=== PATIENT | female | born 1975 | race Caucasian/White ===

== ENCOUNTER 2016-04-09 17:35 | Emergency (ER) | payer OTHER ==
[~2016-04-09] VITALS: Ht 149.9 cm; Wt 95.0 kg
[~2016-04-09 17:35] MED LIST: COLA100C3 PO; CYCL5TAB PO; DIAZ5TAB PO; FENT12DI T-DERMAL; GABA600T PO; LEVO25TA4 PO; MACR100C2 PO; MIRA33504 PO; PERC10TA27 PO; SIMV5TAB3 PO; VENL150T PO
[2016-04-09 17:38] VITALS: BP 136/92; PULSE 87; RESP 14; TEMP 97.6; O2SAT 96
[2016-04-09 17:51] VITALS: TEMP 98.3
[2016-04-09] MEDS ORDERED: HYDR-3133 PO (17:51)
[2016-04-09 18:29] VITALS: O2SAT 97
[2016-04-09] MEDS ORDERED: SODIUM CHLORIDE 0.9% FLUSH 5 ML FLUSH IVF PRN (18:30)
[2016-04-09] MEDS ORDERED: KETOROLAC TROMETHAMINE 30 MG/ML (IVP) VIAL IV PUSH ONE (18:30)
[2016-04-09] MEDS ORDERED: ONDANSETRON HCL 4 MG/2 ML VIAL IVP ONE (18:30)
--- NOTE | 2016-04-09 18:33 | PD ---
HPI Chief Complaint: Abdominal Pain Time Seen by Provider: 18:21 Travel History International Travel<30 days: No Contact w/Intl Traveler<30days: No Traveled to known affect area: No History of Present Illness HPI 40-year-old female with history of ovarian cysts and kidney stones presents to the emergency room for evaluation of acute on chronic abdominal pain and nausea without vomiting since last night. Pain is localized to the periumbilical region with radiation to the right lower quadrant and right flank. Patient states she has a high pain tolerance but this pain is worse than normal. Patient has history of chronic abdominal pain. Abdominal surgical history includes exploratory laparotomy, cholecystectomy, mesh implant, and inguinal hernia repair. Patient reports chronic groin pain due to inguinal hernia. She is on a fentanyl patch for her chronic pain. She also takes ibuprofen for pain. She denies any constipation. She last had a bowel movement last night and it was normal. Denies any rectal bleeding, hematemesis, dysuria, frequency , hematuria, and urgency. Denies possibility of as she has had uterine ablation and her tubes tied. Patient has an appointment with a blast furnace tender at [facility] in 2 weeks. PFSH Past Medical History Hx Anticoagulant Therapy: No Asthma: Yes ( A CHILD) Anxiety: Yes Depression: Yes Cancer: No Cardiovascular Problems: Yes (CHOLESTEROL) Chemotherapy: No Cerebrovascular Accident: No Diabetes: No Diminished Hearing: No Endocrine: Yes Gastrointestinal Disorders: No Genitourinary: Yes (CHRONIC GROIN PAIN ) Hepatitis: No Hiatal Hernia: No Hypertension: No Immune Disorder: No Inguinal Hernia: Yes Kidney Stones: Yes Musculoskeletal: No Neurologic: No Psychiatric: Yes (anxiety) Reproductive: No Respiratory: No Immunizations Current: Yes Thyroid Disease: Yes (HYPO) ?: Not : 3 Para: 3 Ovarian Cysts: Yes (BILAT) Tubal Ligation: Yes Past Surgical History Abdominal Surgery: Yes (BIOPSY ABD RECTUS MUSCLE/BENIGN) AICD: No Section: Yes (X 1) Cholecystectomy: Yes (3 weeks ago) Gynecologic Surgery: Yes (ABLATION) Joint Replacement: No Pacemaker: No Tonsillectomy: Yes Other Surgery: Yes (HERNIA REPAIR X2; MASS REMOVED FROM NECK ) Social History Alcohol Use: No Tobacco Use: No Substance Use: No Allergies-Medications (Allergen,Severity, Reaction): Coded Allergies: No Known Allergies (Verified , 01/28/16) Reported Meds & Prescriptions Reported Meds & Active Scripts Active Diflucan (Fluconazole) 150 Mg Tab 150 Mg PO ONCE Macrobid (Nitrofurantoin Monoh/Nitrofur Macro) 100 Mg Cap 100 Mg PO BID 7 Days Colace (Docusate Sodium) 100 Mg Cap 100 Mg PO BID Miralax Powder (Polyethylene Glycol 3350 Powder) 17 Gm Powd 17 Gm PO DAILY Mix and dissolve one measuring cap-ful (17 grams) in water or juice. Reported Hydroxyzine HCl 25 Mg Tab 25 Mg PO QID Fentanyl Patch 72 HR (Fentanyl) 12 Mcg/Hr Patch 1 Patch T-DERMAL Q72H Remove old patch when new one placed. Venlafaxine ER 24 HR (Venlafaxine HCl) 150 Mg Tab 150 Mg PO HS Levothyroxine (Levothyroxine Sodium) 25 Mcg Tab 25 Mcg PO HS Simvastatin 5 Mg Tab Unknown Dose PO HS Gabapentin 600 Mg Tab 600 Mg PO TID Flexeril (Cyclobenzaprine HCl) 5 Mg Tab 5 Mg PO BID Diazepam 5 Mg Tab 5 Mg PO HS Review of Systems Except as stated in HPI: all other systems reviewed are Neg Physical Exam Narrative GENERAL: Well-developed, morbidly obese female in no acute distress. Afebrile. Ambulatory. SKIN: Warm and dry. HEAD: Atraumatic. Normocephalic. EYES: Pupils equal and round. No scleral icterus. No injection or drainage. ENT: No nasal bleeding or discharge. Mucous membranes pink and moist. NECK: Trachea midline. No JVD. CARDIOVASCULAR: Regular rate and rhythm. No murmur appreciated. RESPIRATORY: No accessory muscle use. Clear to auscultation. Breath sounds equal bilaterally. GASTROINTESTINAL: Abdomen soft, nondistended. Tenderness to palpation periumbilical region. No peritoneal signs. No rebound tenderness. Mildly tender, hard mass on the anterior abdominal wall. Data Data Last Documented VS Vital Signs Date Time Temp Pulse Resp B/P Pulse Ox O2 Delivery O2 Flow Rate FiO2 04/09/16 20:02 104 20 127/63 97 Room Air 04/09/16 18:29 2 04/09/16 17:51 98.3 Orders Complete Blood Count With Diff (04/09/16 18:18) Comprehensive Metabolic Panel (04/09/16 18:18) Lipase (04/09/16 18:18) Prothrombin Time / Inr (Pt) (04/09/16 18:18) Act Partial Throm Time (Ptt) (04/09/16 18:18) Urinalysis - C+S If Indicated (04/09/16 18:18) Iv Access Insert/Monitor (04/09/16 18:18) Oximetry (04/09/16 18:18) Ondansetron Inj (Zofran Inj) (04/09/16 18:30) Sodium Chloride 0.9% Flush (Ns Flush) (04/09/16 18:30) Ed Urine Pregnancytest Poc (04/09/16 18:18) Ketorolac Inj (Toradol Inj) (04/09/16 18:30) Urine Culture (04/09/16 18:24) Prochlorperazine Inj (Compazine Inj) (04/09/16 20:00) Diphenhydramine Inj (Benadryl Inj) (04/09/16 20:00) Labs Laboratory Tests Test 04/09/16 18:24 White Blood Count 10.9 TH/MM3 Red Blood Count 4.89 MIL/MM3 Hemoglobin 14.6 GM/DL Hematocrit 42.2 % Mean Corpuscular Volume 86.3 FL Mean Corpuscular Hemoglobin 29.8 PG Mean Corpuscular Hemoglobin 34.6 % Concent Red Cell Distribution Width 13.2 % Platelet Count 394 TH/MM3 Mean Platelet Volume 8.4 FL Neutrophils (%) (Auto) 59.1 % Lymphocytes (%) (Auto) 31.1 % Monocytes (%) (Auto) 5.9 % Eosinophils (%) (Auto) 3.2 % Basophils (%) (Auto) 0.7 % Neutrophils # (Auto) 6.4 TH/MM3 Lymphocytes # (Auto) 3.4 TH/MM3 Monocytes # (Auto) 0.6 TH/MM3 Eosinophils # (Auto) 0.3 TH/MM3 Basophils # (Auto) 0.1 TH/MM3 CBC Comment DIFF FINAL Differential Comment Prothrombin Time 10.2 SEC Prothromb Time International 0.9 RATIO Ratio Activated Partial 29.2 SEC Thromboplast Time Urine Color YELLOW Urine Turbidity HAZY Urine pH 5.5 Urine Specific [place] 1.010 Urine Protein NEG mg/dL Urine Glucose (UA) NEG mg/dL Urine Ketones NEG mg/dL Urine Occult Blood NEG Urine Nitrite NEG Urine Bilirubin NEG Urine Urobilinogen LESS THAN 2.0 MG/DL Urine Leukocyte Esterase LARGE Urine RBC 11 /hpf Urine WBC 10 /hpf Urine Squamous Epithelial 8 /hpf Cells Urine Hyaline Casts 1 /lpf Urine Mucus FEW /lpf Urine Yeast (Budding) OCC Microscopic Urinalysis Comment CULTURE INDICATED Sodium Level 136 MEQ/L Potassium Level 4.1 MEQ/L Chloride Level 102 MEQ/L Carbon Dioxide Level 26.2 MEQ/L Anion Gap 8 MEQ/L Blood Urea Nitrogen 10 MG/DL Creatinine 0.89 MG/DL Estimat Glomerular Filtration 70 ML/MIN Rate Random Glucose 100 MG/DL Calcium Level 10.0 MG/DL Total Bilirubin 0.3 MG/DL Aspartate Amino Transf 19 U/L (AST/SGOT) Alanine Aminotransferase 22 U/L (ALT/SGPT) Alkaline Phosphatase 92 U/L Total Protein 7.9 GM/DL Albumin 3.6 GM/DL Lipase 103 U/L [facility] Medical Decision Making Medical Screen Exam Complete: Yes Emergency Medical Condition: Yes Medical Record Reviewed: Yes Differential Diagnosis chronic abdominal pain versus UTI versus flank pain versus adhesions Narrative Course 40-year-old female with multiple abdominal surgeries presents to the emergency room for evaluation of acute on chronic abdominal pain and nausea without vomiting. Pain started last night. Localized to periumbilical region. Last BM was yesterday and normal. Patient is well-appearing. Vital signs stable. Ambulatory without difficulty. Abdomen is soft, nontender. No peritoneal signs. No rebound tenderness. There is a palpable, hard mass on the lower abdominal wall which has been present in previous CTs. Patient has had multiple abdominal CTs (#14, most recently 2.5 months ago) and abdominal x-rays (4) in the past at this facility. At this point there is greater concern for risks of radiation than possible benefits as her abdomen is not acute. IV access established patient given Zofran and Toradol for pain. Blood work is reassuring; CBC and CMP are unremarkable. Lipase is negative. UA shows low likelihood of nephrolithiasis but evidence of possible infection and budding yeast; yeast likely contaminant from vagina. She will be discharged with prescriptions for Macrobid and Diflucan. Patient reports no improvement in nausea after Zofran and was given an additional dose of Compazine and Benadryl. I spoke to my attending physician, Dr. Paulson, who agrees she is stable for outpatient follow-up. She was told to follow-up with her blast furnace tender at [facility] or return for worsening symptoms. She understands and agrees to plan. Diagnosis Primary Impression: UTI (urinary tract infection) Qualified Code: N30.00 - Acute cystitis without hematuria Additional Impression: Abdominal pain Qualified Code: R10.33 - Periumbilical abdominal pain Referrals: Primary Care Physician Patient Instructions: General Instructions, Urinary Tract Infection in Women ( ED), Vulvovaginal Candidiasis (ED) Additional Instructions: Rest and drink plenty of fluids. Take Macrobid as directed, until gone. Take Diflucan as directed. Take ibuprofen with food as directed, as needed for pain. Follow-up with a primary care physician. Return to the emergency room for worsening symptoms. Med/Other Pt SpecificInfo: Prescription(s) given Scripts Fluconazole (Diflucan)150 Mg [id number] Mg PO ONCE #1 TAB Ref 0 Prov:Tyrone Paulson MD 04/09/16 Nitrofurantoin Monohydrate Macrocrystals (Macrobid)100 Mg [id number] Mg PO BID 7 Days Ref 0 Prov:Tyrone Paulson MD 04/09/16 Disposition: 01 DISCHARGE HOME Condition: Stable Sheila Jimenez Apr 09, 2016 18:33
[2016-04-09 18:40] LABS: AUTOMATED NEUTROPHIL # 6.4 TH/MM3 (1.8-7.7); BASOPHIL # 0.1 TH/MM3 (0-0.2); BASOPHIL % 0.7 % (0.0-2.0); EOSINOPHIL # 0.3 TH/MM3 (0-0.4); EOSINOPHIL % 3.2 % (0.0-4.0); HEMATOCRIT 42.2 % (35.0-46.0); HEMO FLAGS DIFF FINAL; LYMPH % 31.1 % (9.0-44.0); LYMPHOCYTE # 3.4 TH/MM3 (1.0-4.8); MEAN CELL VOLUME 86.3 FL (80.0-100.0); MEAN CORPUSCULAR HEMOGLOBIN 29.8 PG (27.0-34.0); MEAN CORPUSCULAR HGB CONC 34.6 % (32.0-36.0); MONO % 5.9 % (0.0-8.0); NEUT % 59.1 % (16.0-70.0); PLATELET COUNT 394 TH/MM3 (150-450); RED BLOOD COUNT 4.89 MIL/MM3 (4.00-5.30); RED CELL DISTRIBUTION WIDTH 13.2 % (11.6-17.2); WHITE BLOOD COUNT 10.9 TH/MM3 (4.0-11.0)
[2016-04-09 18:48] LABS: BLOOD, URINE NEG (NEG); COMMENT (UR) CULTURE INDICATED; CULTURE IF INDICATED CULTURE INDICATED; GLUCOSE,URINE NEG (NEG); HYALINE CAST, URINE 1 /lpf (RARE); KETONE, URINE NEG (NEG); MUCUS URINE FEW /lpf (OCC); NITRITE,URINE NEG (NEG); PH, URINE 5.5 (5.0-8.5); SQUAMOUS EPITHELIAL CELL URINE 8 /hpf (0-5); URINE COLOR YELLOW (YELLW/STRAW)
[2016-04-09 18:52] LABS: APTT (PATIENT) 29.2 SEC (24.3-30.1); INTERNATIONAL NORMALIZED RATIO 0.9 RATIO; PROTHROMBIN TIME - PATIENT 10.2 SEC (9.8-11.6)
[2016-04-09 19:30] VITALS: BP 124/66; PULSE 72; RESP 18; O2SAT 97
[2016-04-09 19:37] LABS: ALKALINE PHOSPHATASE 92 U/L (45-117); ALT (GPT) 22 U/L (10-53); ANION GAP 8 MEQ/L (5-15); AST (GOT) 19 U/L (15-37); BICARBONATE 26.2 MEQ/L (21.0-32.0); BLOOD UREA NITROGEN 10 MG/DL (7-18); CHLORIDE 102 MEQ/L (98-107); GLOMERULAR FILTRATION RATE 70 ML/MIN (>89); SODIUM (NA) 136 MEQ/L (136-145); TOTAL BILIRUBIN ADULT 0.3 MG/DL (0.2-1.0)
[2016-04-09 19:38] LABS: POTASSIUM 4.1 MEQ/L (3.5-5.1)
[2016-04-09] MEDS ORDERED: MACR100C2 PO (19:45)
[2016-04-09] MEDS ORDERED: DIFL150T PO (19:45)
[2016-04-09] MEDS ORDERED: diphenhydrAMINE HCL 50 MG/ML VIAL IV PUSH ONE (20:00)
[2016-04-09] MEDS ORDERED: PROCHLORPERAZINE INJ 10 MG/2 ML VIAL IVS ONE (20:00)
[2016-04-09 20:02] VITALS: BP 127/63; PULSE 104; RESP 20; O2SAT 97
--- NOTE | 2016-04-09 20:07 | PD ---
Physical Exam Narrative Patient was seen and examined with my broker assistant. Data Data Last Documented VS Vital Signs Date Time Temp Pulse Resp B/P Pulse Ox O2 Delivery O2 Flow Rate FiO2 04/09/16 20:02 104 20 127/63 97 Room Air 04/09/16 18:29 2 04/09/16 17:51 98.3 Orders Complete Blood Count With Diff (04/09/16 18:18) Comprehensive Metabolic Panel (04/09/16 18:18) Lipase (04/09/16 18:18) Prothrombin Time / Inr (Pt) (04/09/16 18:18) Act Partial Throm Time (Ptt) (04/09/16 18:18) Urinalysis - C+S If Indicated (04/09/16 18:18) Iv Access Insert/Monitor (04/09/16 18:18) Oximetry (04/09/16 18:18) Ondansetron Inj (Zofran Inj) (04/09/16 18:30) Sodium Chloride 0.9% Flush (Ns Flush) (04/09/16 18:30) Ed Urine Pregnancytest Poc (04/09/16 18:18) Ketorolac Inj (Toradol Inj) (04/09/16 18:30) Urine Culture (04/09/16 18:24) Prochlorperazine Inj (Compazine Inj) (04/09/16 20:00) Diphenhydramine Inj (Benadryl Inj) (04/09/16 20:00) Labs Laboratory Tests Test 04/09/16 18:24 White Blood Count 10.9 TH/MM3 Red Blood Count 4.89 MIL/MM3 Hemoglobin 14.6 GM/DL Hematocrit 42.2 % Mean Corpuscular Volume 86.3 FL Mean Corpuscular Hemoglobin 29.8 PG Mean Corpuscular Hemoglobin 34.6 % Concent Red Cell Distribution Width 13.2 % Platelet Count 394 TH/MM3 Mean Platelet Volume 8.4 FL Neutrophils (%) (Auto) 59.1 % Lymphocytes (%) (Auto) 31.1 % Monocytes (%) (Auto) 5.9 % Eosinophils (%) (Auto) 3.2 % Basophils (%) (Auto) 0.7 % Neutrophils # (Auto) 6.4 TH/MM3 Lymphocytes # (Auto) 3.4 TH/MM3 Monocytes # (Auto) 0.6 TH/MM3 Eosinophils # (Auto) 0.3 TH/MM3 Basophils # (Auto) 0.1 TH/MM3 CBC Comment DIFF FINAL Differential Comment Prothrombin Time 10.2 SEC Prothromb Time International 0.9 RATIO Ratio Activated Partial 29.2 SEC Thromboplast Time Urine Color YELLOW Urine Turbidity HAZY Urine pH 5.5 Urine Specific [place] 1.010 Urine Protein NEG mg/dL Urine Glucose (UA) NEG mg/dL Urine Ketones NEG mg/dL Urine Occult Blood NEG Urine Nitrite NEG Urine Bilirubin NEG Urine Urobilinogen LESS THAN 2.0 MG/DL Urine Leukocyte Esterase LARGE Urine RBC 11 /hpf Urine WBC 10 /hpf Urine Squamous Epithelial 8 /hpf Cells Urine Hyaline Casts 1 /lpf Urine Mucus FEW /lpf Urine Yeast (Budding) OCC Microscopic Urinalysis Comment CULTURE INDICATED Sodium Level 136 MEQ/L Potassium Level 4.1 MEQ/L Chloride Level 102 MEQ/L Carbon Dioxide Level 26.2 MEQ/L Anion Gap 8 MEQ/L Blood Urea Nitrogen 10 MG/DL Creatinine 0.89 MG/DL Estimat Glomerular Filtration 70 ML/MIN Rate Random Glucose 100 MG/DL Calcium Level 10.0 MG/DL Total Bilirubin 0.3 MG/DL Aspartate Amino Transf 19 U/L (AST/SGOT) Alanine Aminotransferase 22 U/L (ALT/SGPT) Alkaline Phosphatase 92 U/L Total Protein 7.9 GM/DL Albumin 3.6 GM/DL Lipase 103 U/L [facility] Supervised Visit with PANCHO: Yes Diagnosis Primary Impression: UTI (urinary tract infection) Qualified Code: N30.00 - Acute cystitis without hematuria Additional Impression: Abdominal pain Qualified Code: R10.33 - Periumbilical abdominal pain Referrals: Primary Care Physician Patient Instructions: General Instructions, Urinary Tract Infection in Women ( ED), Vulvovaginal Candidiasis (ED) Additional Instruction: Rest and drink plenty of fluids. Take Macrobid as directed, until gone. Take Diflucan as directed. Take ibuprofen with food as directed, as needed for pain. Follow-up with a primary care physician. Return to the emergency room for worsening symptoms. Scripts Fluconazole (Diflucan)150 Mg [id number] Mg PO ONCE #1 TAB Ref 0 Prov:Tyrone Paulson MD 04/09/16 Nitrofurantoin Monohydrate Macrocrystals (Macrobid)100 Mg [id number] Mg PO BID 7 Days Ref 0 Prov:Tyrone Paulson MD 04/09/16 Disposition: 01 DISCHARGE HOME Condition: Stable Tyrone Paulson MD Apr 09, 2016 20:07
== END 2016-04-09 20:44 | disposition home or self-care (01) ==
LOC: NEPA 17:35
DX: N30.00 Acute cystitis without hematuria (principal); B96.89 Other specified bacterial agents as the cause of diseases classified elsewhere; R10.33 Periumbilical pain
CPT/HCPCS: 80053; 81001; 83690; 84703; 85025; 85610; 85730; 87086; 96374; 96375; 99284; J0780; J1200; J1885; J2405

== ENCOUNTER 2016-08-28 18:37 | Emergency (ER) | payer OTHER ==
[~2016-08-28] VITALS: Ht 149.9 cm; Wt 100.0 kg
[~2016-08-28 18:37] MED LIST changes: +DIFL150T PO; +HYDR-3133 PO; -PERC10TA27 PO
[2016-08-28 18:43] VITALS: BP 156/72; PULSE 86; RESP 18; TEMP 98; O2SAT 98
--- NOTE | 2016-08-28 18:57 | PD ---
HPI Chief Complaint: Psychiatric Symptoms Time Seen by Provider: 18:53 Travel History International Travel<30 days: No Contact w/Intl Traveler<30days: No Traveled to known affect area: No History of Present Illness HPI 40-year-old female presents to the emergency Department under [place] act by local police. According to the patient, the daughter called 911 and stated that she was suicidal. Patient does state that she is suicidal and has thoughts of killing herself. She states her plan would be to take all her medications. However, she denies any attempt at this point to hurt herself. Patient states she has not taken any medications. Patient reports history depression. She states that she is useless. She states that due to chronic pain, she cannot work which is causing her depression to worsen. She does have history of hypothyroidism, hyperlipidemia, chronic pain. Patient denies any chance of . She denies any chest pressure is breath. No abdominal pain. No nausea, vomiting, diarrhea. She has no medical complaints at this time other than her chronic back pain. PFSH Past Medical History Hx Anticoagulant Therapy: No Asthma: Yes ( A CHILD) Anxiety: Yes Depression: Yes Cancer: No Cardiovascular Problems: Yes (CHOLESTEROL) Chemotherapy: No Cerebrovascular Accident: No Diabetes: No Diminished Hearing: No Endocrine: Yes Gastrointestinal Disorders: No Genitourinary: Yes (CHRONIC GROIN PAIN ) Hepatitis: No Hiatal Hernia: No Hypertension: No Immune Disorder: No Inguinal Hernia: Yes Kidney Stones: Yes Musculoskeletal: No Neurologic: No Psychiatric: Yes (anxiety) Reproductive: No Respiratory: No Immunizations Current: Yes Thyroid Disease: Yes (HYPO) ?: Not : 3 Para: 3 Ovarian Cysts: Yes (BILAT) Tubal Ligation: Yes Past Surgical History Abdominal Surgery: Yes (BIOPSY ABD RECTUS MUSCLE/BENIGN) AICD: No Section: Yes (X 1) Cholecystectomy: Yes (3 weeks ago) Gynecologic Surgery: Yes (ABLATION) Joint Replacement: No Pacemaker: No Tonsillectomy: Yes Other Surgery: Yes (HERNIA REPAIR X2; MASS REMOVED FROM NECK ) Social History Alcohol Use: No Tobacco Use: No Substance Use: No Allergies-Medications (Allergen,Severity, Reaction): Coded Allergies: No Known Allergies (Verified , 01/28/16) Reported Meds & Prescriptions Reported Meds & Active Scripts Active Reported Venlafaxine ER 24 HR (Venlafaxine HCl) 150 Mg Tab 150 Mg PO HS Levothyroxine (Levothyroxine Sodium) 25 Mcg Tab 25 Mcg PO HS Simvastatin 5 Mg Tab Unknown Dose PO HS Gabapentin 600 Mg Tab 600 Mg PO TID Diazepam 5 Mg Tab 5 Mg PO HS Physical Exam Narrative GENERAL: Well-nourished, well-developed female patient, afebrile. SKIN: Focused skin assessment warm/dry. HEAD: Normocephalic. Atraumatic. EYES: No scleral icterus. No injection or drainage. NECK: Supple, trachea midline. No JVD or lymphadenopathy. CARDIOVASCULAR: Regular rate and rhythm without murmurs, gallops, or rubs. RESPIRATORY: Breath sounds equal bilaterally. No accessory muscle use. Lungs sounds are clear to auscultation. GASTROINTESTINAL: Abdomen soft, non-tender, nondistended. MUSCULOSKELETAL: No cyanosis, or edema. PSYCHIATRIC: No delusional thought processes. No hallucinations. Data Data Last Documented VS Vital Signs Date Time Temp Pulse Resp B/P Pulse Ox O2 Delivery O2 Flow Rate FiO2 08/28/16 18:43 98.0 86 18 156/72 98 Orders Complete Blood Count With Diff (08/28/16 18:52) Comprehensive Metabolic Panel (08/28/16 18:52) Ed Urine Pregnancytest Poc (08/28/16 18:52) Psych Screen (08/28/16 18:52) Drug Screen, Random Urine (08/28/16 18:52) Alcohol (Ethanol) (08/28/16 18:52) Salicylates (Aspirin) (08/28/16 18:52) Tylenol (Acetaminophen) (08/28/16 18:52) Labs Laboratory Tests Test 08/28/16 18:57 White Blood Count 8.9 TH/MM3 Red Blood Count 4.86 MIL/MM3 Hemoglobin 13.9 GM/DL Hematocrit 41.5 % Mean Corpuscular Volume 85.4 FL Mean Corpuscular Hemoglobin 28.6 PG Mean Corpuscular Hemoglobin 33.5 % Concent Red Cell Distribution Width 13.7 % Platelet Count 338 TH/MM3 Mean Platelet Volume 8.0 FL Neutrophils (%) (Auto) 59.3 % Lymphocytes (%) (Auto) 30.3 % Monocytes (%) (Auto) 5.7 % Eosinophils (%) (Auto) 3.9 % Basophils (%) (Auto) 0.8 % Neutrophils # (Auto) 5.3 TH/MM3 Lymphocytes # (Auto) 2.7 TH/MM3 Monocytes # (Auto) 0.5 TH/MM3 Eosinophils # (Auto) 0.3 TH/MM3 Basophils # (Auto) 0.1 TH/MM3 CBC Comment DIFF FINAL Differential Comment Sodium Level 139 MEQ/L Potassium Level 4.3 MEQ/L Chloride Level 105 MEQ/L Carbon Dioxide Level 26.7 MEQ/L Anion Gap 7 MEQ/L Blood Urea Nitrogen 12 MG/DL Creatinine 0.99 MG/DL Estimat Glomerular Filtration 62 ML/MIN Rate Random Glucose 127 MG/DL Calcium Level 10.8 MG/DL Total Bilirubin 0.2 MG/DL Aspartate Amino Transf 16 U/L (AST/SGOT) Alanine Aminotransferase 20 U/L (ALT/SGPT) Alkaline Phosphatase 106 U/L Total Protein 7.6 GM/DL Albumin 3.6 GM/DL Salicylates Level LESS THAN 1.7 MG/DL Acetaminophen Level LESS THAN 2.0 MCG/ML Ethyl Alcohol Level LESS THAN 3 MG/DL MDM Medical Decision Making Medical Screen Exam Complete: Yes Emergency Medical Condition: Yes Medical Record Reviewed: Yes Differential Diagnosis Depression versus anxiety versus suicidal ideation versus electrolyte abnormality Narrative Course 40-year-old female presents to the emergency Department under [place] act by local police for suicidal ideation. Patient states that she has a plan to take all her medications, but denies any attempt at this time to hurt herself. Patient has no medical complaints of that her chronic pain at this time. CBC, CMP, alcohol level, urine drug screen, salicylate level, Tylenol level, urine test are ordered and pending. CBC is unremarkable. CMP shows no acute abnormality. Alcohol level is less than 3. UDS is pending. Salicylate level is less than 1.7. Tylenol level is less than 2.0. UPT is negative. Patient is medically cleared for psychiatric screening and disposition. Mental health screening discussed with the patient. Psychiatric screen ordered. Diagnosis Primary Impression: Depression Qualified Code: F32.9 - Depression, unspecified depression type Additional Impression: Suicidal ideation Additional Instructions: Patient is medically cleared for psychiatric screening and disposition. Condition: Stable Anisa Bourne SHARI Aug 28, 2016 18:56
[2016-08-28 19:22] LABS: AUTOMATED NEUTROPHIL # 5.3 TH/MM3 (1.8-7.7); BASOPHIL # 0.1 TH/MM3 (0-0.2); BASOPHIL % 0.8 % (0.0-2.0); EOSINOPHIL # 0.3 TH/MM3 (0-0.4); EOSINOPHIL % 3.9 % (0.0-4.0); HEMATOCRIT 41.5 % (35.0-46.0); HEMO FLAGS DIFF FINAL; LYMPH % 30.3 % (9.0-44.0); LYMPHOCYTE # 2.7 TH/MM3 (1.0-4.8); MEAN CELL VOLUME 85.4 FL (80.0-100.0); MEAN CORPUSCULAR HEMOGLOBIN 28.6 PG (27.0-34.0); MEAN CORPUSCULAR HGB CONC 33.5 % (32.0-36.0); MONO % 5.7 % (0.0-8.0); NEUT % 59.3 % (16.0-70.0); PLATELET COUNT 338 TH/MM3 (150-450); RED BLOOD COUNT 4.86 MIL/MM3 (4.00-5.30); RED CELL DISTRIBUTION WIDTH 13.7 % (11.6-17.2); WHITE BLOOD COUNT 8.9 TH/MM3 (4.0-11.0)
[2016-08-28 19:35] LABS: ANION GAP 7 MEQ/L (5-15); AST (GOT) 16 U/L (15-37); BICARBONATE 26.7 MEQ/L (21.0-32.0); BLOOD UREA NITROGEN 12 MG/DL (7-18); CHLORIDE 105 MEQ/L (98-107); GLOMERULAR FILTRATION RATE 62 ML/MIN (>89); POTASSIUM 4.3 MEQ/L (3.5-5.1); SODIUM (NA) 139 MEQ/L (136-145)
[2016-08-28 19:37] LABS: ALKALINE PHOSPHATASE 106 U/L (45-117); ALT (GPT) 20 U/L (10-53); TOTAL BILIRUBIN ADULT 0.2 MG/DL (0.2-1.0)
[2016-08-28 20:08] LABS: ACETAMINOPHEN LESS THAN 2.0 MCG/ML (10.0-30.0)
[2016-08-28 20:26] LABS: AMPHETAMINE, URINE NEG (NEG); BARBITURATES, URINE NEG (NEG); COCAINE, URINE NEG (NEG)
[2016-08-29 02:10] VITALS: BP 117/64; PULSE 67; RESP 17; TEMP 97.1; O2SAT 98
[2016-08-29] MEDS ORDERED: ACETAMINOPHEN 325 MG TAB PO ONE (02:15)
[2016-08-29 06:11] VITALS: BP 132/64; PULSE 67; RESP 18; TEMP 96.9; O2SAT 96
[2016-08-29 10:11] VITALS: BP 132/64; TEMP 96.9
--- NOTE | 2016-08-29 10:24 | PD ---
History of Present Illness Chief Complaint: Psychiatric Symptoms Time Seen by Provider: 10:00 Travel History International Travel<30 Days: No Contact w/Intl Traveler<30days: No Known affected area: No Legal Status Legal Status: Bowling Act Bowling Act Signed By: History of Present Illness: 40-year-old female who was brought in under a Bowling act initiated by law enforcement. Apparently the patient was Bowling acted after her daughter reported her for suicidal ideation. According to the emergency department physical medicine physician, the patient also admitted to suicidal ideation with plan (by overdosing on medication) last night. However, this morning the patient is denying any suicidal or homicidal ideation, plan or intent. She states that she has never attempted to kill herself. She feels guilty and depressed because she is not working. She states she does not work because of chronic back pain. This physician does not see evidence of significant disability related to her complaints. However, patient does take venlafaxine as an antidepressant with gabapentin and Valium 2 treat her symptoms. The patient does not have any psychotic symptoms and her cognition is intact. She is verbally sincere for safety. She would like to leave the hospital and seek follow up care on an outpatient basis. PFSH Past Medical History Hx Anticoagulant Therapy: No Asthma: Yes ( A CHILD) Anxiety: Yes Depression: Yes Cancer: No Cardiovascular Problems: Yes (CHOLESTEROL) Chemotherapy: No Cerebrovascular Accident: No Diabetes: No Diminished Hearing: No Endocrine: Yes Gastrointestinal Disorders: No Genitourinary: Yes (CHRONIC GROIN PAIN ) Hepatitis: No Hiatal Hernia: No Hypertension: No Immune Disorder: No Inguinal Hernia: Yes Kidney Stones: Yes Musculoskeletal: No Neurologic: No Psychiatric: Yes (anxiety) Reproductive: No Respiratory: No Immunizations Current: Yes Thyroid Disease: Yes (HYPO) ?: Not : 3 Para: 3 Ovarian Cysts: Yes (BILAT) Tubal Ligation: Yes Past Surgical History Abdominal Surgery: Yes (BIOPSY ABD RECTUS MUSCLE/BENIGN) AICD: No Section: Yes (X 1) Cholecystectomy: Yes (3 weeks ago) Gynecologic Surgery: Yes (ABLATION) Joint Replacement: No Pacemaker: No Tonsillectomy: Yes Other Surgery: Yes (HERNIA REPAIR X2; MASS REMOVED FROM NECK ) Psychiatric History Psychiatric History Hx Psychiatric Treatment: PTSD/ANXIETY/DEPRESSION. This physician does not see current objective significant evidence of PTSD. Patient does report a chronically depressed mood with anxiety. History of Inpatient Treatment: No Guns or firearms in home: No Social History Hx Alcohol Use: No Hx Tobacco Use: No Hx Substance Use: No Hx of Substance Use Treatment: No Allergies-Medications (Allergen,Severity, Reaction): Coded Allergies: No Known Allergies (Verified , 01/28/16) Reported Meds & Prescriptions Reported Meds & Active Scripts Active Reported Venlafaxine ER 24 HR (Venlafaxine HCl) 150 Mg Tab 150 Mg PO HS Levothyroxine (Levothyroxine Sodium) 25 Mcg Tab 25 Mcg PO HS Simvastatin 5 Mg Tab Unknown Dose PO HS Gabapentin 600 Mg Tab 600 Mg PO TID Diazepam 5 Mg Tab 5 Mg PO HS Review of Systems Except as stated in HPI: all other systems reviewed are Neg Musculoskeletal: COMPLAINS OF: Joint pain, Back pain Exam Alert: Yes Onia: Person, Place, Date, Situation Mood: Calm Affect: Appropriate Speech: Clear, Logical Eye Contact: Normal Memory Intact: Immediate, Recent, Remote Insight/Judgement Adequate MDM Medical Decision Making Medical Record Reviewed: Yes Assessment/Plan 40-year-old female with reported long-standing back pain and complains of groin pain, leading the patient to state that she is unable to work. She states she feels guilty and depressed about this and she has had chronic depression, chronic anxiety and chronic suicidal ideation. She denies any suicidal ideation or plan this morning but states these thoughts are intermittent. Her cognition is intact and she demonstrates no psychotic symptoms. She is verbally sincere for safety and she would like to go home and seek follow up care on an outpatient basis. Despite the risks of the patient actually doing something to harm herself, patient is competent to make these decisions. In this physician's opinion she does not qualify for [facility] or inpatient psychiatric hospitalization. She is being encouraged to seek follow up treatment however with a psychiatrist at [facility] or elsewhere. Orders Complete Blood Count With Diff (08/28/16 18:52) Comprehensive Metabolic Panel (08/28/16 18:52) Ed Urine Pregnancytest Poc (08/28/16 18:52) Psych Screen (08/28/16 18:52) Drug Screen, Random Urine (08/28/16 18:52) Alcohol (Ethanol) (08/28/16 18:52) Salicylates (Aspirin) (08/28/16 18:52) Tylenol (Acetaminophen) (08/28/16 18:52) Acetaminophen (Tylenol) (08/29/16 02:15) Diet Regular Basic (08/29/16 Breakfast) Diet Regular Basic (08/29/16 Lunch) Results Vital Signs Date Time Temp Pulse Resp B/P Pulse Ox O2 Delivery O2 Flow Rate FiO2 08/29/16 06:11 96.9 67 18 132/64 96 08/29/16 02:10 97.1 67 17 117/64 98 08/28/16 18:43 98.0 86 18 156/72 98 Laboratory Tests Test 08/28/16 08/28/16 18:57 19:54 White Blood Count 8.9 Red Blood Count 4.86 Hemoglobin 13.9 Hematocrit 41.5 Mean Corpuscular Volume 85.4 Mean Corpuscular Hemoglobin 28.6 Mean Corpuscular Hemoglobin 33.5 Concent Red Cell Distribution Width 13.7 Platelet Count 338 Mean Platelet Volume 8.0 Neutrophils (%) (Auto) 59.3 Lymphocytes (%) (Auto) 30.3 Monocytes (%) (Auto) 5.7 Eosinophils (%) (Auto) 3.9 Basophils (%) (Auto) 0.8 Neutrophils # (Auto) 5.3 Lymphocytes # (Auto) 2.7 Monocytes # (Auto) 0.5 Eosinophils # (Auto) 0.3 Basophils # (Auto) 0.1 CBC Comment DIFF FINAL Differential Comment Sodium Level 139 Potassium Level 4.3 Chloride Level 105 Carbon Dioxide Level 26.7 Anion Gap 7 Blood Urea Nitrogen 12 Creatinine 0.99 Estimat Glomerular Filtration 62 Rate Random Glucose 127 Calcium Level 10.8 Total Bilirubin 0.2 Aspartate Amino Transf 16 (AST/SGOT) Alanine Aminotransferase 20 (ALT/SGPT) Alkaline Phosphatase 106 Total Protein 7.6 Albumin 3.6 Salicylates Level LESS THAN 1.7 Acetaminophen Level LESS THAN 2.0 Ethyl Alcohol Level LESS THAN 3 Urine Opiates Screen NEG Urine Barbiturates Screen NEG Urine Amphetamines Screen NEG Urine Benzodiazepines Screen POS Urine Cocaine Screen NEG Urine Cannabinoids Screen NEG Diagnosis Primary Impression: Adjustment disorder with depressed mood Additional Impression: Back pain Additional Instructions: Patient is medically cleared for psychiatric screening and disposition. Condition: Stable Problem Qualifiers Glen Tapia MD Aug 29, 2016 10:24
== END 2016-08-29 10:26 | disposition home or self-care (01) ==
LOC: NEPE 18:37 → NEPJ 08-29 10:26
DX: F43.21 Adjustment disorder with depressed mood (principal); M54.9 Dorsalgia, unspecified; Z79.899 Other long term (current) drug therapy
CPT/HCPCS: 80053; 80307; 84703; 85025; 99284

== ENCOUNTER 2016-10-16 00:07 | Emergency (ER) | payer OTHER ==
[~2016-10-16] VITALS: Ht 149.9 cm; Wt 96.0 kg
[~2016-10-16 00:07] MED LIST changes: -COLA100C3 PO; -CYCL5TAB PO; -DIFL150T PO; -FENT12DI T-DERMAL; -HYDR-3133 PO; -MACR100C2 PO; -MIRA33504 PO
[2016-10-16 00:09] VITALS: BP 149/83; PULSE 100; RESP 18; TEMP 98; O2SAT 96
[2016-10-16] MEDS ORDERED: SODIUM CHLOR 0.9% 1000 ML INJ 1,000 ML IV SCH (00:44)
[2016-10-16] MEDS ORDERED: ONDANSETRON HCL 4 MG/2 ML VIAL IVP ONE (00:45)
[2016-10-16] MEDS ORDERED: MORPHINE SULFATE 4 MG/ML INJ IV PUSH ONE (00:45)
[2016-10-16] MEDS ORDERED: SODIUM CHLORIDE 0.9% FLUSH 10 ML FLUSH IV FLUSH PRN (00:45)
[2016-10-16] MEDS ORDERED: KETOROLAC TROMETHAMINE 30 MG/ML (IVP) VIAL IVP ONE (00:45)
[2016-10-16 01:10] LABS: AUTOMATED NEUTROPHIL # 3.9 TH/MM3 (1.8-7.7); BASOPHIL # 0.1 TH/MM3 (0-0.2); EOSINOPHIL # 0.3 TH/MM3 (0-0.4); EOSINOPHIL % 3.4 % (0.0-4.0); HEMATOCRIT 36.8 % (35.0-46.0); HEMO FLAGS DIFF FINAL; LYMPH % 39.3 % (9.0-44.0); LYMPHOCYTE # 3.2 TH/MM3 (1.0-4.8); MEAN CORPUSCULAR HEMOGLOBIN 28.5 PG (27.0-34.0); MEAN CORPUSCULAR HGB CONC 33.5 % (32.0-36.0); MONO % 7.7 % (0.0-8.0); NEUT % 48.6 % (16.0-70.0); PLATELET COUNT 304 TH/MM3 (150-450); RED BLOOD COUNT 4.32 MIL/MM3 (4.00-5.30); RED CELL DISTRIBUTION WIDTH 13.1 % (11.6-17.2); WHITE BLOOD COUNT 8.1 TH/MM3 (4.0-11.0)
[2016-10-16 01:17] LABS: BACTERIA, URINE FEW /hpf; BLOOD, URINE SMALL (NEG); CALCIUM OXALATE CRYSTALS,URINE OCC /hpf; GLUCOSE,URINE NEG (NEG); HYALINE CAST, URINE 3 /lpf (RARE); KETONE, URINE NEG (NEG); MUCUS URINE MANY /lpf (OCC); NITRITE,URINE NEG (NEG); PH, URINE 5.5 (5.0-8.5); SQUAMOUS EPITHELIAL CELL URINE 9 /hpf (0-5); URINE COLOR YELLOW (YELLW/STRAW)
[2016-10-16 01:18] LABS: COMMENT (UR) CULTURE INDICATED; CULTURE IF INDICATED CULTURE INDICATED
[2016-10-16 01:34] LABS: BICARBONATE 31.2 MEQ/L (21.0-32.0); POTASSIUM 3.6 MEQ/L (3.5-5.1)
--- NOTE | 2016-10-16 02:06 | RADRPT ---
EXAM DATE/TIME: 10/16/2016 01:39 [facility] COMPARISON: CT ABDOMEN & PELVIS W/O CONTRAST, December 19, 2014, 2:34. INDICATIONS : Left flank and lower abdominal pain with nausea and diarrhea. ORAL CONTRAST: No oral contrast ingested. RADIATION DOSE: 16.97 CTDIvol (mGy) MEDICAL HISTORY : Renal calculi. Hernia, inguinal. SURGICAL HISTORY : Cholecystectomy. Tubal ligation. section.Hysterectomy. ENCOUNTER: Initial ACUITY: 2 days PAIN SCALE: 8/10 LOCATION: Left flank TECHNIQUE: Volumetric scanning of the abdomen and pelvis was performed. Using automated exposure control and ad justment of the mA and/or kV according to patient size, radiation dose was kept as low as reasonably achievable to obtain optimal diagnostic quality images. DICOM format image data is available electro nically for review and comparison. FINDINGS: LOWER LUNGS: The visualized lower lungs are clear. LIVER: Homogeneous density without lesion. There is no dilation of the biliary tree. Cholecystectomy clips. SPLEEN: Normal size without lesion. PANCREAS: Within normal limits. KIDNEYS: Normal in size and shape. There is no mass or hydronephrosis. 2 mm nonobstructing right renal calcul us.. Obstructive uropathy on the left secondary to distal left ureteral calculus measuring 3 and 4 mm . ADRENAL GLANDS: Within normal limits. VASCULAR: There is no aortic aneurysm. BOWEL/MESENTERY: The stomach, small bowel, and colon demonstrate no acute abnormality. There is no free intraperitone al air or fluid. ABDOMINAL WALL: Postsurgical changes along the anterior abdominal wall with small fat-containing hernias. RETROPERITONEUM: There is no lymphadenopathy. BLADDER: No wall thickening or mass. REPRODUCTIVE: Within normal limits. INGUINAL: There is no lymphadenopathy or hernia. MUSCULOSKELETAL: Within normal limits for patient age. CONCLUSION: 1. Mild obstructive uropathy secondary to 2 adjacent distal left ureteral calculi measuring 3 and 4 m m. 2. Punctate nonobstructing right renal calculus. 3. Status post cholecystectomy. Rickey Kenney MD on October 16, 2016 at 2:03 Board Certified Radiologist. This report was verified electronically.
[2016-10-16] MEDS ORDERED: cefTRIAXone INJ 1,000 MG in SODIUM CHLORIDE 0.9% INJ 100 ML IV ONE (02:30)
[2016-10-16] MEDS ORDERED: ACETAMINOPHEN/HYDROcodone 325 MG/5 MG TAB PO ONE (03:30)
[2016-10-16 04:49] VITALS: BP 140/80; PULSE 98; RESP 16; O2SAT 97
[2016-10-16] MEDS ORDERED: CIPR-9 PO (05:18)
[2016-10-16] MEDS ORDERED: HYDR-3533 PO (05:18)
[2016-10-16] MEDS ORDERED: TAMS5CAP PO (05:18)
--- NOTE | 2016-10-16 05:19 | PD ---
HPI Chief Complaint: Abdominal Pain Time Seen by Provider: 00:40 Travel History International Travel<30 days: No Contact w/Intl Traveler<30days: No Traveled to known affect area: No History of Present Illness HPI Patient is a 40 year old female who comes in complaining of left flank pain. She says she has had the pain for the past few days and it got worse. She says she has history of kidney stones. She tried taking Aleve without relief of her symptoms. She has had some nausea, but no vomiting. She denies fever or chills. PFSH Past Medical History Hx Anticoagulant Therapy: No Asthma: Yes ( A CHILD) Anxiety: Yes Depression: Yes Cancer: No Cardiovascular Problems: Yes (CHOLESTEROL) Chemotherapy: No Cerebrovascular Accident: No Diabetes: No Diminished Hearing: No Endocrine: Yes Gastrointestinal Disorders: No Genitourinary: Yes (CHRONIC GROIN PAIN ) Hepatitis: No Hiatal Hernia: No Hypertension: No Immune Disorder: No Inguinal Hernia: Yes Kidney Stones: Yes Musculoskeletal: No Neurologic: No Psychiatric: Yes (anxiety) Reproductive: No Respiratory: No Immunizations Current: Yes Thyroid Disease: Yes (HYPO) ?: Not : 3 Para: 3 Ovarian Cysts: Yes Tubal Ligation: Yes Past Surgical History Abdominal Surgery: Yes (BIOPSY ABD RECTUS MUSCLE/BENIGN) AICD: No Section: Yes (X 1) Cholecystectomy: Yes Gynecologic Surgery: Yes (ABLATION) Hysterectomy: Yes (TOTAL) Joint Replacement: No Pacemaker: No Tonsillectomy: Yes Other Surgery: Yes (HERNIA REPAIR X2; MASS REMOVED FROM NECK ) Social History Alcohol Use: No Tobacco Use: No Substance Use: No Allergies-Medications (Allergen,Severity, Reaction): Coded Allergies: No Known Allergies (Verified , 10/16/16) Reported Meds & Prescriptions Reported Meds & Active Scripts Active Lortab (Hydrocodone-Acetaminophen) 5-325 Mg Tab 1 Tab PO Q6H PRN Flomax (Tamsulosin HCl) 0.4 Mg Cap 0.4 Mg PO HS Cipro (Ciprofloxacin HCl) 500 Mg Tab 500 Mg PO BID 7 Days Reported Venlafaxine ER 24 HR (Venlafaxine HCl) 150 Mg Tab 150 Mg PO HS Levothyroxine (Levothyroxine Sodium) 25 Mcg Tab 25 Mcg PO HS Simvastatin 5 Mg Tab Unknown Dose PO HS Gabapentin 600 Mg Tab 600 Mg PO TID Diazepam 5 Mg Tab 5 Mg PO HS Review of Systems Except as stated in HPI: all other systems reviewed are Neg General / Constitutional: No: Fever, Chills HENT: No: Headaches, Lightheadedness, Sore Throat Cardiovascular: No: Chest Pain or Discomfort Respiratory: No: Shortness of Breath Gastrointestinal: Positive: Nausea, Abdominal Pain, No: Vomiting Genitourinary: Positive: Flank Pain Skin: No Rash, No Change in Pigmentation Neurologic: No: Weakness, Dizziness Physical Exam Narrative GENERAL: Awake and alert, in no acute distress. SKIN: Focused skin assessment warm/dry. HEAD: Atraumatic. Normocephalic. EYES: Pupils equal and round. No scleral icterus. ENT: Mucous membranes pink and moist. NECK: Trachea midline. No JVD. CARDIOVASCULAR: Regular rate and rhythm. No murmur appreciated. RESPIRATORY: No accessory muscle use. Clear to auscultation. Breath sounds equal bilaterally. GASTROINTESTINAL: Abdomen soft, nondistended. Left CVA tenderness. Tender to palpation of the LLQ. MUSCULOSKELETAL: No obvious deformities. No clubbing. No cyanosis. No edema. NEUROLOGICAL: Awake and alert. No obvious cranial nerve deficits. Motor grossly within normal limits. Normal speech. PSYCHIATRIC: Appropriate mood and affect; insight and judgment normal. Data Data Last Documented VS Vital Signs Date Time Temp Pulse Resp B/P Pulse Ox O2 Delivery O2 Flow Rate FiO2 10/16/16 04:49 98 16 140/80 97 Room Air 10/16/16 00:09 98.0 Orders Basic Metabolic Panel (Bmp) (10/16/16 00:44) Complete Blood Count With Diff (10/16/16 00:44) Urinalysis - C+S If Indicated (10/16/16 00:44) Ua Includes Microscopic (10/16/16 00:44) Ct Abd/Pel W/O Iv Contrast (10/16/16 00:44) Iv Access Insert/Monitor (10/16/16 00:44) Ecg Monitoring (10/16/16 00:44) Oximetry (10/16/16 00:44) Morphine Inj (Morphine Inj) (10/16/16 00:45) Ondansetron Inj (Zofran Inj) (10/16/16 00:45) Sodium Chlor 0.9% 1000 Ml Inj (Ns 1000 M (10/16/16 00:44) Sodium Chloride 0.9% Flush (Ns Flush) (10/16/16 00:45) Ketorolac Inj (Toradol Inj) (10/16/16 00:45) Urine Culture (10/16/16 00:50) Ceftriaxone Inj (Rocephin Inj) (10/16/16 02:30) Acetamin-Hydrocod 325-5 Mg ([place] 5-325 (10/16/16 03:30) Labs Laboratory Tests Test 10/16/16 00:50 White Blood Count 8.1 TH/MM3 Red Blood Count 4.32 MIL/MM3 Hemoglobin 12.3 GM/DL Hematocrit 36.8 % Mean Corpuscular Volume 85.0 FL Mean Corpuscular Hemoglobin 28.5 PG Mean Corpuscular Hemoglobin 33.5 % Concent Red Cell Distribution Width 13.1 % Platelet Count 304 TH/MM3 Mean Platelet Volume 7.7 FL Neutrophils (%) (Auto) 48.6 % Lymphocytes (%) (Auto) 39.3 % Monocytes (%) (Auto) 7.7 % Eosinophils (%) (Auto) 3.4 % Basophils (%) (Auto) 1.0 % Neutrophils # (Auto) 3.9 TH/MM3 Lymphocytes # (Auto) 3.2 TH/MM3 Monocytes # (Auto) 0.6 TH/MM3 Eosinophils # (Auto) 0.3 TH/MM3 Basophils # (Auto) 0.1 TH/MM3 CBC Comment DIFF FINAL Differential Comment Urine Color YELLOW Urine Turbidity HAZY Urine pH 5.5 Urine Specific Foreman 1.019 Urine Protein TRACE mg/dL Urine Glucose (UA) NEG mg/dL Urine Ketones NEG mg/dL Urine Occult Blood SMALL Urine Nitrite NEG Urine Bilirubin NEG Urine Urobilinogen LESS THAN 2.0 MG/DL Urine Leukocyte Esterase LARGE Urine RBC 59 /hpf Urine WBC 23 /hpf Urine Squamous Epithelial 9 /hpf Cells Urine Calcium Oxalate Crystals OCC /hpf Urine Amorphous Sediment RARE Urine Bacteria FEW /hpf Urine Hyaline Casts 3 /lpf Urine Mucus MANY /lpf Microscopic Urinalysis Comment CULTURE INDICATED Sodium Level 139 MEQ/L Potassium Level 3.6 MEQ/L Chloride Level 103 MEQ/L Carbon Dioxide Level 31.2 MEQ/L Anion Gap 5 MEQ/L Blood Urea Nitrogen 9 MG/DL Creatinine 0.90 MG/DL Estimat Glomerular Filtration 69 ML/MIN Rate Random Glucose 102 MG/DL Calcium Level 10.2 MG/DL MDM Medical Decision Making Medical Screen Exam Complete: Yes Emergency Medical Condition: Yes Medical Record Reviewed: Yes Differential Diagnosis UTI vs pyelonephritis vs Renal stone Narrative Course Patient is a 40-year-old female comes in complaining of left flank pain that radiates into her left groin. Exam shows left CVA tenderness and tenderness to the left lower quadrant. IV established, labs sent. Urinalysis is positive for UTI. Creatinine is within normal limits. Patient given IV fluids, pain medicine, Zofran. CT abdomen and pelvis shows a 4 mm obstructing stone. Patient reports feeling better. She'll be discharged with prescriptions for antibiotics, Flomax, pain medicine. She is advised follow-up with urology. Advised to return to the ED as needed for any worsening symptoms. Diagnosis Primary Impression: Renal stone Additional Impression: UTI (urinary tract infection) Qualified Code: N30.00 - Acute cystitis without hematuria Patient Instructions: General Instructions, Kidney Stones (ED), Urinary Tract Infection in Women (ED) Additional Instructions: Take pain medicine as needed. Follow up with urology as soon as possible. Take all of the antibiotic. Drink plenty of fluids. Return to the emergency department as needed for any worsening symptoms. Scripts Hydrocodone-Acetaminophen (Lortab)5-325 Mg Tab1 Tab PO Q6H PRN (PAIN) #12 TAB Ref 0 Prov:Shikha Mccollum MD 10/16/16 Tamsulosin (Flomax)0.4 Mg Cap0.4 Mg PO HS #7 CAP Ref 0 Prov:Shikha Mccollum MD 10/16/16 Ciprofloxacin (Cipro)500 Mg [id number] Mg PO BID 7 Days Ref 0 Prov:Shikha Mccollum MD 10/16/16 Disposition: 01 DISCHARGE HOME Condition: Stable Shikha Mccollum MD Oct 16, 2016 05:19
== END 2016-10-16 05:40 | disposition home or self-care (01) ==
LOC: NEPE 00:07
DX: N20.2 Calculus of kidney with calculus of ureter (principal); N30.00 Acute cystitis without hematuria; B96.89 Other specified bacterial agents as the cause of diseases classified elsewhere
CPT/HCPCS: 74176; 80048; 81001; 85025; 87086; 96361; 96365; 96375; 99285; J0696; J1885; J2270; J2405; J7030

== ENCOUNTER 2016-10-20 17:45 | Emergency (ER) | payer OTHER ==
[~2016-10-20] VITALS: Ht 149.9 cm; Wt 95.0 kg
[~2016-10-20 17:45] MED LIST changes: +CIPR-9 PO; +HYDR-3533 PO; +TAMS5CAP PO
[2016-10-20 17:46] VITALS: BP 128/80; PULSE 97; RESP 16; TEMP 98; O2SAT 100
--- NOTE | 2016-10-20 17:59 | PD ---
Physical Exam Date Seen by Provider: Oct 20, 2016 Time Seen by Provider: 17:57 Narrative 40 YOWF C/O KIDNEY STONE PAIN L WORSE X 2DAYS. NO F/C . PAIN 10/13 VS REVIEWED WAITING FOR BED PLACEMENT Data Data Last Documented VS Vital Signs Date Time Temp Pulse Resp B/P Pulse Ox O2 Delivery O2 Flow Rate FiO2 10/20/16 17:46 98.0 97 16 128/80 100 MDM Supervised Visit with PANCHO: Nilson Carrero Oct 20, 2016 17:59
[2016-10-20 19:40] LABS: BACTERIA, URINE MOD /hpf; BLOOD, URINE MOD (NEG); COMMENT (UR) CULTURE INDICATED; CULTURE IF INDICATED CULTURE INDICATED; GLUCOSE,URINE NEG (NEG); KETONE, URINE NEG (NEG); MUCUS URINE FEW /lpf (OCC); NITRITE,URINE NEG (NEG); PH, URINE 6.5 (5.0-8.5); SQUAMOUS EPITHELIAL CELL URINE 2 /hpf (0-5); URINE COLOR YELLOW (YELLW/STRAW)
[2016-10-20 20:58] VITALS: BP 124/73; PULSE 77; RESP 18; O2SAT 99
--- NOTE | 2016-10-20 21:08 | PD ---
HPI Chief Complaint: Flank/Kidney Pain Time Seen by Provider: 21:07 Travel History International Travel<30 days: No Contact w/Intl Traveler<30days: No Traveled to known affect area: No History of Present Illness HPI 40-year-old female presents to the emergency department for evaluation of left flank pain and left abdominal pain. Patient reports history of kidney stones here patient was in the emergency department for days ago had a CT scan done that time. CT scan showed mild obstructive uropathy secondary to 2 adjacent distal left ureteral calculi measuring 3 and 4 mm. Patient denies any fevers or chills. She reports nausea, but no vomiting. Patient reports history of chronic abdominal pain after mesh was placed due to hernias. Patient was discharged prescription for Lortab, Flomax, ciprofloxacin. She has not yet followed up with urologist. PFSH Past Medical History Hx Anticoagulant Therapy: No Asthma: Yes ( A CHILD) Anxiety: Yes Depression: Yes Cancer: No Cardiovascular Problems: Yes (CHOLESTEROL) High Cholesterol: Yes Chemotherapy: No Cerebrovascular Accident: No Diabetes: No Diminished Hearing: No Endocrine: Yes Gastrointestinal Disorders: No Genitourinary: Yes (CHRONIC GROIN PAIN ) Hepatitis: No Hiatal Hernia: No Hypertension: No Immune Disorder: No Inguinal Hernia: Yes Kidney Stones: Yes Musculoskeletal: No Neurologic: No Psychiatric: Yes (anxiety) Reproductive: No Respiratory: No Immunizations Current: Yes Thyroid Disease: Yes (HYPO) Influenza Vaccination: Yes ?: Unknown : 3 Para: 3 Ovarian Cysts: Yes Tubal Ligation: Yes Past Surgical History Abdominal Surgery: Yes (BIOPSY ABD RECTUS MUSCLE/BENIGN) AICD: No Section: Yes (X 1) Cholecystectomy: Yes Gynecologic Surgery: Yes (ABLATION) Hysterectomy: Yes (TOTAL) Joint Replacement: No Pacemaker: No Tonsillectomy: Yes Other Surgery: Yes (HERNIA REPAIR X2; MASS REMOVED FROM NECK ) Social History Alcohol Use: No Tobacco Use: No Substance Use: No Allergies-Medications (Allergen,Severity, Reaction): Coded Allergies: No Known Allergies (Verified , 10/16/16) Reported Meds & Prescriptions Reported Meds & Active Scripts Active Lortab (Hydrocodone-Acetaminophen) 5-325 Mg Tab 1 Tab PO Q6H PRN Flomax (Tamsulosin HCl) 0.4 Mg Cap 0.4 Mg PO HS Cipro (Ciprofloxacin HCl) 500 Mg Tab 500 Mg PO BID 7 Days Reported Venlafaxine ER 24 HR (Venlafaxine HCl) 150 Mg Tab 150 Mg PO HS Levothyroxine (Levothyroxine Sodium) 25 Mcg Tab 25 Mcg PO HS Simvastatin 5 Mg Tab Unknown Dose PO HS Gabapentin 600 Mg Tab 600 Mg PO TID Diazepam 5 Mg Tab 5 Mg PO HS Review of Systems Except as stated in HPI: all other systems reviewed are Neg Physical Exam Narrative GENERAL: Well-nourished, well-developed female patient, afebrile. SKIN: Focused skin assessment warm/dry. HEAD: Normocephalic. Atraumatic. EYES: No scleral icterus. No injection or drainage. NECK: Supple, trachea midline. No JVD or lymphadenopathy. CARDIOVASCULAR: Regular rate and rhythm without murmurs, gallops, or rubs. RESPIRATORY: Breath sounds equal bilaterally. No accessory muscle use. Lungs sounds are clear to auscultation. GASTROINTESTINAL: Abdomen soft and nondistended. Patient has tenderness over left lower quadrant. MUSCULOSKELETAL: No cyanosis, or edema. BACK: Nontender without obvious deformity. Left CVA tenderness. Data Data Last Documented VS Vital Signs Date Time Temp Pulse Resp B/P Pulse Ox O2 Delivery O2 Flow Rate FiO2 10/20/16 22:00 74 16 119/66 97 Room Air 10/20/16 17:46 98.0 Orders Urinalysis - C+S If Indicated (10/20/16 18:43) Urine Culture (10/20/16 18:40) Iv Access Insert/Monitor (10/20/16 21:05) Complete Blood Count With Diff (10/20/16 21:05) Comprehensive Metabolic Panel (10/20/16 21:05) Sodium Chlor 0.9% 1000 Ml Inj (Ns 1000 M (10/20/16 21:15) Ketorolac Inj (Toradol Inj) (10/20/16 21:15) Ondansetron Inj (Zofran Inj) (10/20/16 21:15) Ceftriaxone Inj (Rocephin Inj) (10/20/16 22:15) Morphine Inj (Morphine Inj) (10/20/16 22:30) Labs Laboratory Tests Test 10/20/16 10/20/16 18:40 21:00 Urine Color YELLOW Urine Turbidity HAZY Urine pH 6.5 Urine Specific [place] 1.010 Urine Protein NEG mg/dL Urine Glucose (UA) NEG mg/dL Urine Ketones NEG mg/dL Urine Occult Blood MOD Urine Nitrite NEG Urine Bilirubin NEG Urine Urobilinogen LESS THAN 2.0 MG/DL Urine Leukocyte Esterase LARGE Urine RBC 40 /hpf Urine WBC 11 /hpf Urine Squamous Epithelial 2 /hpf Cells Urine Bacteria MOD /hpf Urine Mucus FEW /lpf Microscopic Urinalysis Comment CULTURE INDICATED White Blood Count 8.8 TH/MM3 Red Blood Count 4.48 MIL/MM3 Hemoglobin 13.0 GM/DL Hematocrit 38.3 % Mean Corpuscular Volume 85.4 FL Mean Corpuscular Hemoglobin 29.0 PG Mean Corpuscular Hemoglobin 33.9 % Concent Red Cell Distribution Width 13.5 % Platelet Count 324 TH/MM3 Mean Platelet Volume 8.1 FL Neutrophils (%) (Auto) 56.5 % Lymphocytes (%) (Auto) 32.0 % Monocytes (%) (Auto) 7.7 % Eosinophils (%) (Auto) 2.8 % Basophils (%) (Auto) 1.0 % Neutrophils # (Auto) 5.0 TH/MM3 Lymphocytes # (Auto) 2.8 TH/MM3 Monocytes # (Auto) 0.7 TH/MM3 Eosinophils # (Auto) 0.3 TH/MM3 Basophils # (Auto) 0.1 TH/MM3 CBC Comment DIFF FINAL Differential Comment Sodium Level 138 MEQ/L Potassium Level 3.7 MEQ/L Chloride Level 102 MEQ/L Carbon Dioxide Level 30.9 MEQ/L Anion Gap 5 MEQ/L Blood Urea Nitrogen 15 MG/DL Creatinine 1.04 MG/DL Estimat Glomerular Filtration 58 ML/MIN Rate Random Glucose 101 MG/DL Calcium Level 10.8 MG/DL Total Bilirubin 0.2 MG/DL Aspartate Amino Transf 14 U/L (AST/SGOT) Alanine Aminotransferase 19 U/L (ALT/SGPT) Alkaline Phosphatase 98 U/L Total Protein 7.8 GM/DL Albumin 3.7 GM/DL [facility] Medical Decision Making Medical Screen Exam Complete: Yes Emergency Medical Condition: Yes Medical Record Reviewed: Yes Differential Diagnosis Nephrolithiasis versus UTI versus pyelonephritis Narrative Course 40-year-old female presents to the emergency department for evaluation of continuing left flank pain. Patient was seen emergency department for days ago and had CT scan completed at that time. Patient had UA done in triage which shows large leukocyte esterase, 40 RBC, 11 WBC, moderate bacteria. CBC, CMP are ordered and pending. Patient is given normal saline 1 L IV bolus, Toradol 30 mg IV, Zofran 4 mg IV. He is to complain of pain. Patient is given morphine 4 mg IV. CBC is unremarkable. CMP shows no acute abnormality. Patient is given Rocephin 1 gm IV. Patient is to continue Cipro and Flomax as previously prescribed. Patient will be given a short-term dose of Lortab. She is instructed to return here for any acute worsening of symptoms. The patient was discharged in stable condition with instructions, including return instructions and follow up instructions. Diagnosis Primary Impression: Renal stone Referrals: Stephon Vásquez MD call for appointment Patient Instructions: General Instructions, Kidney Stones (ED), Narcotic given in the ED Additional Instructions: Follow-up with urologist. Dr. Vásquez is our urologist on-call today. Continue Flomax and Cipro as directed. Take Lortab as instructed as needed for pain. Caution this can make you drowsy so do not drive after taking. Return to the emergency department for any acute worsening of symptoms. Med/Other Pt SpecificInfo: Prescription(s) given Scripts Hydrocodone-Acetaminophen (Lortab)5-325 Mg Tab1 Tab PO Q6H PRN (PAIN) #12 TAB Ref 0 Prov:Shivam Quiroz MD 10/20/16 Disposition: 01 DISCHARGE HOME Condition: Stable Anisa Bourne Oct 20, 2016 21:08
[2016-10-20] MEDS ORDERED: ONDANSETRON HCL 4 MG/2 ML VIAL IV PUSH ONE (21:15)
[2016-10-20] MEDS ORDERED: KETOROLAC TROMETHAMINE 30 MG/ML (IVP) VIAL IV PUSH ONE (21:15)
[2016-10-20] MEDS ORDERED: SODIUM CHLOR 0.9% 1000 ML INJ 1,000 ML IV ONE (21:15)
[2016-10-20 21:51] LABS: BASOPHIL # 0.1 TH/MM3 (0-0.2); EOSINOPHIL # 0.3 TH/MM3 (0-0.4); EOSINOPHIL % 2.8 % (0.0-4.0); HEMATOCRIT 38.3 % (35.0-46.0); HEMO FLAGS DIFF FINAL; LYMPHOCYTE # 2.8 TH/MM3 (1.0-4.8); MEAN CELL VOLUME 85.4 FL (80.0-100.0); MEAN CORPUSCULAR HGB CONC 33.9 % (32.0-36.0); MONO % 7.7 % (0.0-8.0); NEUT % 56.5 % (16.0-70.0); PLATELET COUNT 324 TH/MM3 (150-450); RED BLOOD COUNT 4.48 MIL/MM3 (4.00-5.30); RED CELL DISTRIBUTION WIDTH 13.5 % (11.6-17.2); WHITE BLOOD COUNT 8.8 TH/MM3 (4.0-11.0)
[2016-10-20 21:56] LABS: ANION GAP 5 MEQ/L (5-15); AST (GOT) 14 U/L (15-37); BICARBONATE 30.9 MEQ/L (21.0-32.0); BLOOD UREA NITROGEN 15 MG/DL (7-18); CHLORIDE 102 MEQ/L (98-107); GLOMERULAR FILTRATION RATE 58 ML/MIN (>89); POTASSIUM 3.7 MEQ/L (3.5-5.1); SODIUM (NA) 138 MEQ/L (136-145)
[2016-10-20 22:00] VITALS: BP 119/66; PULSE 74; RESP 16; O2SAT 97
[2016-10-20 22:00] LABS: ALKALINE PHOSPHATASE 98 U/L (45-117); ALT (GPT) 19 U/L (10-53); TOTAL BILIRUBIN ADULT 0.2 MG/DL (0.2-1.0)
[2016-10-20] MEDS ORDERED: cefTRIAXone INJ 1,000 MG in SODIUM CHLORIDE 0.9% INJ 100 ML IV ONE (22:15)
[2016-10-20] MEDS ORDERED: HYDR-3533 PO (22:28)
[2016-10-20] MEDS ORDERED: MORPHINE SULFATE 4 MG/ML INJ IV PUSH ONE (22:30)
[2016-10-20 23:02] VITALS: BP 121/72
== END 2016-10-20 23:05 | disposition home or self-care (01) ==
LOC: NEPD 17:45
DX: N20.0 Calculus of kidney (principal); R11.0 Nausea; J45.909 Unspecified asthma, uncomplicated; E78.00 Pure hypercholesterolemia, unspecified; E03.9 Hypothyroidism, unspecified; F41.9 Anxiety disorder, unspecified; Z87.442 Personal history of urinary calculi
CPT/HCPCS: 80053; 81001; 85025; 87086; 96361; 96365; 96375; 99284; J0696; J1885; J2270; J2405; J7030

== ENCOUNTER 2016-12-08 01:07 | Emergency (ER) | payer OTHER ==
[2016-12-08 01:08] VITALS: BP 160/90; PULSE 120; RESP 18; TEMP 98.5; O2SAT 96
[2016-12-08] MEDS ORDERED: KETOROLAC TROMETHAMINE 30 MG/ML (IVP) VIAL IV PUSH ONE (01:30)
[2016-12-08] MEDS ORDERED: ONDANSETRON HCL 4 MG/2 ML VIAL IV PUSH ONE (01:30)
[2016-12-08] MEDS ORDERED: SODIUM CHLOR 0.9% 1000 ML INJ 1,000 ML IV ONE (01:30)
[2016-12-08] MEDS ORDERED: MORPHINE SULFATE 4 MG/ML INJ IV PUSH ONE (01:30)
[2016-12-08 01:45] VITALS: BP 129/78; PULSE 88; RESP 18; O2SAT 96
[2016-12-08 02:00] VITALS: BP 132/62; PULSE 90; RESP 20; O2SAT 96
--- NOTE | 2016-12-08 02:50 | PD ---
HPI . Right flank pain Chief Complaint: Flank/Kidney Pain Time Seen by Provider: 01:28 Travel History International Travel<30 days: No Contact w/Intl Traveler<30days: No Traveled to known affect area: No History of Present Illness HPI This patient presents with right flank pain. Onset was about 24 hours ago. She states that the pain is constant but that it does wax and wane. She rates the pain 8/10. There are no modifying factors. It is associated with nausea. She denies any urinary tract symptoms. She denies any fever. This patient does have a history of kidney stones. I looked at her previous records and she has had about 15 previous CTs of her abdomen and pelvis. She does have proven kidney stones. PFSH Past Medical History Hx Anticoagulant Therapy: No Asthma: Yes ( A CHILD) Anxiety: Yes Depression: Yes Cancer: No Cardiovascular Problems: Yes (CHOLESTEROL) High Cholesterol: Yes Chemotherapy: No Cerebrovascular Accident: No Diabetes: No Diminished Hearing: No Endocrine: Yes Gastrointestinal Disorders: No Genitourinary: Yes (CHRONIC GROIN PAIN ) Hepatitis: No Hiatal Hernia: No Hypertension: No Immune Disorder: No Inguinal Hernia: Yes Kidney Stones: Yes Medical other: Yes (HYPERCALCEMIA ) Musculoskeletal: No Neurologic: No Psychiatric: Yes (anxiety) Reproductive: No Respiratory: No Immunizations Current: Yes Thyroid Disease: Yes (HYPO) ?: Not : 3 Para: 3 Ovarian Cysts: Yes Tubal Ligation: Yes Past Surgical History Abdominal Surgery: Yes (BIOPSY ABD RECTUS MUSCLE/BENIGN) AICD: No Section: Yes (X 1) Cholecystectomy: Yes Gynecologic Surgery: Yes (ABLATION) Hysterectomy: Yes (TOTAL) Joint Replacement: No Pacemaker: No Tonsillectomy: Yes Other Surgery: Yes (HERNIA REPAIR X2; MASS REMOVED FROM NECK ) Social History Alcohol Use: No Tobacco Use: No Substance Use: No Allergies-Medications (Allergen,Severity, Reaction): Coded Allergies: No Known Allergies (Verified , 10/16/16) Reported Meds & Prescriptions Reported Meds & Active Scripts Active Lortab (Hydrocodone-Acetaminophen) 5-325 Mg Tab 1 Tab PO Q6H PRN Flomax (Tamsulosin HCl) 0.4 Mg Cap 0.4 Mg PO HS Cipro (Ciprofloxacin HCl) 500 Mg Tab 500 Mg PO BID 7 Days Reported Venlafaxine ER 24 HR (Venlafaxine HCl) 150 Mg Tab 150 Mg PO HS Levothyroxine (Levothyroxine Sodium) 25 Mcg Tab 25 Mcg PO HS Simvastatin 5 Mg Tab Unknown Dose PO HS Gabapentin 600 Mg Tab 600 Mg PO TID Diazepam 5 Mg Tab 5 Mg PO HS Review of Systems Except as stated in HPI: all other systems reviewed are Neg General / Constitutional: No: Fever, Chills Gastrointestinal: Positive: Nausea, No: Vomiting Genitourinary: Positive: Flank Pain, No: Urgency, Frequency, Dysuria Physical Exam Narrative GENERAL: This patient looks uncomfortable. SKIN: Warm and dry. No rashes. HEAD: Normocephalic/atraumatic. EYES: Pupils are equal. Extraocular movements are intact. NECK: Full range of motion without pain. CARDIOVASCULAR: Regular rate and rhythm. RESPIRATORY: Nonlabored respirations. GI/: Positive right CVA tenderness. Abdomen is soft and nontender. MUSCULOSKELETAL: Atraumatic. NEUROLOGICAL: Nonfocal. PSYCHIATRIC: Appropriate mood and affect. Data Data Last Documented VS Vital Signs Date Time Temp Pulse Resp B/P (MAP) Pulse Ox O2 Delivery O2 Flow Rate FiO2 12/08/16 03:10 80 15 127/77 (94) 96 Room Air 12/08/16 01:08 98.5 Orders Orders Sodium Chlor 0.9% 1000 Ml Inj (Ns 1000 M (12/08/16 01:30) Morphine Inj (Morphine Inj) (12/08/16 01:30) Ondansetron Inj (Zofran Inj) (12/08/16 01:30) Ketorolac Inj (Toradol Inj) (12/08/16 01:30) Urinalysis - C+S If Indicated (12/08/16 02:30) Tamsulosin (Flomax) (12/08/16 03:00) Hydromorphone Pf Inj (Dilaudid Pf Inj) (12/08/16 03:00) Ceftriaxone Inj (Rocephin Inj) (12/08/16 03:45) Labs Laboratory Tests Test 12/08/16 03:05 Urine Color YELLOW Urine Turbidity HAZY Urine pH 6.0 Urine Specific [place] 1.014 Urine Protein NEG mg/dL Urine Glucose (UA) NEG mg/dL Urine Ketones NEG mg/dL Urine Occult Blood NEG Urine Nitrite NEG Urine Bilirubin NEG Urine Urobilinogen LESS THAN 2.0 MG/DL Urine Leukocyte Esterase MOD Urine RBC 8 /hpf Urine WBC 8 /hpf Urine Squamous Epithelial Cells 2 /hpf Urine Calcium Oxalate Crystals OCC /hpf Urine Amorphous Sediment RARE Urine Bacteria RARE /hpf Urine Hyaline Casts 1 /lpf Urine Mucus FEW /lpf Microscopic Urinalysis Comment CULT NOT INDICATED MDM Medical Decision Making Medical Screen Exam Complete: Yes Emergency Medical Condition: Yes Medical Record Reviewed: Yes (this patient has had numerous previous kidney stones.) Differential Diagnosis Differential diagnosis of flank pain includes but is not limited to kidney stone , pyelonephritis, musculoskeletal pain, PE Narrative Course This patient presents with right flank pain. She has known kidney stones. No imaging will be done tonight. She is being treated with IV fluids and IV pain medication. UA will be checked to rule out infection. UA>>mod LE, 8 RBCs, 8 WBCs, neg nitrite, rare bact The patient reports that she is feeling much better. She further reports that she follows closely with her primary care provider. I will have her follow-up within the couple of days for recheck. She received Rocephin 1 g IV here prior to discharge and will then be discharged on Bactrim. He has been given prescriptions for Percocet, Flomax and Phenergan as well. Diagnosis Primary Impression: Renal colic Additional Impression: UTI (urinary tract infection) Qualified Codes: N30.00 - Acute cystitis without hematuria Referrals: Primary Care Physician 2 days Patient Instructions: General Instructions, Narcotic given in the ED, Renal Colic (DC), Urinary Tract Infection in Women (DC) Med/Other Pt SpecificInfo: Prescription(s) given Scripts Sulfamethoxazole-Trimethoprim (Bactrim DS) 800-160 Mg Tab 1 TAB PO BID for Infection, #14 TAB 0 Refills Prov: Geovanna Beaver MD 12/08/16 Promethazine (Phenergan) 25 Mg Tablet 25 MG PO Q6H Y for NAUSEA OR VOMITING, #12 TAB 0 Refills Prov: Geovanna Beaver MD 12/08/16 Oxycodone-Acetaminophen (Percocet) 5-325 mg Tab 1 TAB PO Q4H Y for PAIN, #12 TAB 0 Refills Prov: Geovanna Beaver MD 12/08/16 Tamsulosin (Flomax) 0.4 Mg Cap 0.4 MG PO HS for Manage Prostate Problems, #30 CAP 0 Refills Prov: Geovanna Beaver MD 12/08/16 Disposition: 01 DISCHARGE HOME Condition: Stable Geovanna Beaver MD Dec 08, 2016 02:49
[2016-12-08] MEDS ORDERED: TAMSULOSIN HCL 0.4 MG CAP PO ONE (03:00)
[2016-12-08] MEDS ORDERED: HYDROmorphone HCL PF 2 MG/ML VIAL IV PUSH ONE (03:00)
[2016-12-08 03:10] VITALS: BP 127/77; PULSE 80; RESP 15; O2SAT 96
[2016-12-08 03:38] LABS: BACTERIA, URINE RARE /hpf; BLOOD, URINE NEG (NEG); CALCIUM OXALATE CRYSTALS,URINE OCC /hpf; COMMENT (UR) CULT NOT INDICATED; CULTURE IF INDICATED CULT NOT INDICATED; GLUCOSE,URINE NEG (NEG); HYALINE CAST, URINE 1 /lpf (RARE); KETONE, URINE NEG (NEG); MUCUS URINE FEW /lpf (OCC); NITRITE,URINE NEG (NEG); SQUAMOUS EPITHELIAL CELL URINE 2 /hpf (0-5); URINE COLOR YELLOW (YELLW/STRAW)
[2016-12-08] MEDS ORDERED: cefTRIAXone INJ 1,000 MG in SODIUM CHLORIDE 0.9% INJ 100 ML IV ONE (03:45)
[2016-12-08] MEDS ORDERED: PROM25TA10 PO (03:49)
[2016-12-08] MEDS ORDERED: PERC5TAB12 PO (03:49)
[2016-12-08] MEDS ORDERED: TAMS5CAP PO (03:49)
[2016-12-08] MEDS ORDERED: BACT800T5 PO (03:50)
[2016-12-08 04:01] VITALS: BP 149/79; PULSE 79; RESP 15; O2SAT 96
== END 2016-12-08 04:41 | disposition home or self-care (01) ==
LOC: NEPE 01:07
DX: N30.00 Acute cystitis without hematuria (principal); Z87.442 Personal history of urinary calculi
CPT/HCPCS: 81001; 96361; 96365; 96375; 99284; J0696; J1170; J1885; J2270; J2405; J7030

== ENCOUNTER 2016-12-21 18:18 | Emergency (ER) | payer OTHER ==
[~2016-12-21] VITALS: Ht 149.9 cm; Wt 100.0 kg
[~2016-12-21 18:18] MED LIST changes: +BACT800T5 PO; +PERC5TAB12 PO; +PROM25TA10 PO
[2016-12-21 18:19] VITALS: BP 149/79; PULSE 97; RESP 20; TEMP 98; O2SAT 98
[2016-12-21] MEDS ORDERED: SODIUM CHLOR 0.9% 1000 ML INJ 1,000 ML IV SCH (21:06)
--- NOTE | 2016-12-21 21:10 | PD ---
HPI Chief Complaint: Abdominal Pain Time Seen by Provider: 21:02 Travel History International Travel<30 days: No Contact w/Intl Traveler<30days: No Traveled to known affect area: No History of Present Illness HPI 41-year-old female here for evaluation of right flank pain. The patient reports long history of kidney stones and hypercalcemia. She was seen in the emergency department on 12/08/16 with similar pain and has pictures of several kidney stones that she has passed since then. The pain had resolved, however returned yesterday. Pain is described as sharp, starts in her right flank and radiates to her right lower abdomen. Pain is moderate, intermittently worse at times. No hematuria. She has felt nauseous. No modifying factors to her pain. PFSH Past Medical History Hx Anticoagulant Therapy: No Asthma: Yes ( A CHILD) Anxiety: Yes Depression: Yes Cancer: No Cardiovascular Problems: Yes (CHOLESTEROL) High Cholesterol: Yes Chemotherapy: No Cerebrovascular Accident: No Diabetes: No Diminished Hearing: No Endocrine: Yes Gastrointestinal Disorders: No Genitourinary: Yes (CHRONIC GROIN PAIN ) Hepatitis: No Hiatal Hernia: No Hypertension: No Immune Disorder: No Inguinal Hernia: Yes Kidney Stones: Yes Musculoskeletal: No Neurologic: No Psychiatric: Yes (anxiety) Reproductive: No Respiratory: No Immunizations Current: Yes Thyroid Disease: Yes (HYPO) ?: Not : 3 Para: 3 Ovarian Cysts: Yes Tubal Ligation: Yes Past Surgical History Abdominal Surgery: Yes (BIOPSY ABD RECTUS MUSCLE/BENIGN) AICD: No Section: Yes (X 1) Cholecystectomy: Yes Gynecologic Surgery: Yes (ABLATION) Hysterectomy: Yes Joint Replacement: No Pacemaker: No Tonsillectomy: Yes Other Surgery: Yes (HERNIA REPAIR X2; MASS REMOVED FROM NECK ) Social History Alcohol Use: No Tobacco Use: No Substance Use: No Allergies-Medications (Allergen,Severity, Reaction): Coded Allergies: No Known Allergies (Verified , 10/16/16) Reported Meds & Prescriptions Reported Meds & Active Scripts Active Reported Flexeril (Cyclobenzaprine HCl) 10 Mg Tab 10 Mg PO TID Effexor (Venlafaxine HCl) 37.5 Mg Tab 37.5 Mg PO HS Venlafaxine ER 24 HR (Venlafaxine HCl) 150 Mg Tab 150 Mg PO HS Levothyroxine (Levothyroxine Sodium) 25 Mcg Tab 25 Mcg PO HS Simvastatin 5 Mg Tab Unknown Dose PO HS Gabapentin 600 Mg Tab 600 Mg PO TID Diazepam 5 Mg Tab 5 Mg PO HS Review of Systems Except as stated in HPI: all other systems reviewed are Neg Physical Exam Narrative GENERAL: Well-developed, well-nourished, overweight, comfortable, no apparent distress. SKIN: Focused skin assessment warm/dry. No rash. HEAD: Atraumatic. Normocephalic. EYES: Pupils equal and round. No scleral icterus. No injection or drainage. ENT: Mucous membranes pink and moist. NECK: Trachea midline. No JVD. CARDIOVASCULAR: Regular rate and rhythm. No murmur appreciated. RESPIRATORY: No accessory muscle use. Clear to auscultation. Breath sounds equal bilaterally. GASTROINTESTINAL: Abdomen soft, non-tender, nondistended. MUSCULOSKELETAL: No obvious deformities. No clubbing. No cyanosis. No edema. Moderate right CVA tenderness. No left CVA tenderness. No midline vertebral step-off or tenderness. NEUROLOGICAL: Awake and alert. No obvious cranial nerve deficits. Motor grossly within normal limits. Normal speech. PSYCHIATRIC: Appropriate mood and affect; insight and judgment normal. Data Data Last Documented VS Vital Signs Date Time Temp Pulse Resp B/P (MAP) Pulse Ox O2 Delivery O2 Flow Rate FiO2 12/21/16 21:56 14 12/21/16 21:54 100 12/21/16 18:19 98.0 97 Room Air Orders Orders Complete Blood Count With Diff (12/21/16 21:06) Comprehensive Metabolic Panel (12/21/16 21:06) Prothrombin Time / Inr (Pt) (12/21/16 21:06) Act Partial Throm Time (Ptt) (12/21/16 21:06) Urinalysis - C+S If Indicated (12/21/16 21:06) Ct Abd/Pel W/O Iv Contrast (12/21/16 21:06) Iv Access Insert/Monitor (12/21/16 21:06) Ecg Monitoring (12/21/16 21:06) Oximetry (12/21/16 21:06) Ondansetron Inj (Zofran Inj) (12/21/16 21:15) Sodium Chlor 0.9% 1000 Ml Inj (Ns 1000 M (12/21/16 21:06) Sodium Chloride 0.9% Flush (Ns Flush) (12/21/16 21:15) Ketorolac Inj (Toradol Inj) (12/21/16 21:15) Labs Laboratory Tests Test 12/21/16 21:20 White Blood Count 8.7 TH/MM3 Red Blood Count 4.84 MIL/MM3 Hemoglobin 14.0 GM/DL Hematocrit 41.7 % Mean Corpuscular Volume 86.1 FL Mean Corpuscular Hemoglobin 28.9 PG Mean Corpuscular Hemoglobin Concent 33.6 % Red Cell Distribution Width 13.2 % Platelet Count 377 TH/MM3 Mean Platelet Volume 7.4 FL Neutrophils (%) (Auto) 58.2 % Lymphocytes (%) (Auto) 31.4 % Monocytes (%) (Auto) 6.8 % Eosinophils (%) (Auto) 2.7 % Basophils (%) (Auto) 0.9 % Neutrophils # (Auto) 5.0 TH/MM3 Lymphocytes # (Auto) 2.7 TH/MM3 Monocytes # (Auto) 0.6 TH/MM3 Eosinophils # (Auto) 0.2 TH/MM3 Basophils # (Auto) 0.1 TH/MM3 CBC Comment DIFF FINAL Differential Comment Prothrombin Time 9.7 SEC Prothromb Time International Ratio 0.9 RATIO Activated Partial Thromboplast Time 27.9 SEC Urine Color LIGHT-YELLOW Urine Turbidity CLEAR Urine pH 6.5 Urine Specific [place] 1.004 Urine Protein NEG mg/dL Urine Glucose (UA) NEG mg/dL Urine Ketones NEG mg/dL Urine Occult Blood NEG Urine Nitrite NEG Urine Bilirubin NEG Urine Urobilinogen LESS THAN 2.0 MG/DL Urine Leukocyte Esterase MOD Urine RBC LESS THAN 1 /hpf Urine WBC 2 /hpf Urine Squamous Epithelial Cells 1 /hpf Urine Bacteria RARE /hpf Microscopic Urinalysis Comment CULT NOT INDICATED Blood Urea Nitrogen 10 MG/DL Creatinine 0.84 MG/DL Random Glucose 90 MG/DL Total Protein 8.5 GM/DL Albumin 4.1 GM/DL Calcium Level 11.1 MG/DL Alkaline Phosphatase 116 U/L Aspartate Amino Transf (AST/SGOT) 16 U/L Alanine Aminotransferase (ALT/SGPT) 23 U/L Total Bilirubin 0.1 MG/DL Sodium Level 137 MEQ/L Potassium Level 3.7 MEQ/L Chloride Level 102 MEQ/L Carbon Dioxide Level 28.6 MEQ/L Anion Gap 6 MEQ/L Estimat Glomerular Filtration Rate 74 ML/MIN [facility] Medical Decision Making Medical Screen Exam Complete: Yes Emergency Medical Condition: Yes Medical Record Reviewed: Yes Differential Diagnosis Nephrolithiasis, ureterolithiasis, pyelonephritis, UTI, dissection/AAA less likely Narrative Course Vital signs reviewed. CBC is unremarkable. CMP is remarkable for calcium of 11.1. The patient reports history of hypercalcemia and is supposed to be seen by an roll sheeting cutter. UA is not suggestive of UTI. CT abdomen pelvis: CONCLUSION: 2 distal left ureteral stones noted on prior study are absent. There is one punctate left kidney calyceal stone nonobstructive 2 right kidney calyceal stones nonobstructive. The 2 distal left ureteral calculi on prior study with obstructive uropathy have cleared Surgical absence of gallbladder. Stable lower abdominal pelvic right-sided hernia postsurgical containing fat. Patient was made aware of all findings and provided a copy of her CT abdomen pelvis report. She is resting comfortably after receiving Toradol and Zofran, however she is still having some pain and is requesting something a little bit stronger for it. She will be given a dose of morphine and will be discharged home with instructions to follow-up with her primary care physician this week. She was informed on when to return to the emergency department. She verbalizes understanding and agreement with plan. Diagnosis Primary Impression: Renal colic Additional Impression: Hypercalcemia Referrals: Primary Care Physician 3 days Additional Instructions: Follow-up with your primary care physician this week. Return to the emergency department for worsening symptoms or any other concerns. Scripts Ondansetron Odt (Zofran Odt) 4 Mg Tab 4 MG SL Q8HR Y for Nausea/Vomiting, #20 TAB 0 Refills Prov: Shivam Quiroz MD 12/21/16 Oxycodone-Acetaminophen (Percocet) 5-325 mg Tab 1 TAB PO Q6H Y for PAIN, #12 TAB 0 Refills Prov: Shivam Quiroz MD 12/21/16 Disposition: 01 DISCHARGE HOME Condition: Stable Shivam Quiroz MD Dec 21, 2016 21:09
[2016-12-21] MEDS ORDERED: KETOROLAC TROMETHAMINE 30 MG/ML (IVP) VIAL IVP ONE (21:15)
[2016-12-21] MEDS ORDERED: SODIUM CHLORIDE 0.9% FLUSH 10 ML FLUSH IV FLUSH PRN (21:15)
[2016-12-21] MEDS ORDERED: ONDANSETRON HCL 4 MG/2 ML VIAL IVP ONE (21:15)
[2016-12-21 21:44] LABS: BASOPHIL # 0.1 TH/MM3 (0-0.2); BASOPHIL % 0.9 % (0.0-2.0); EOSINOPHIL # 0.2 TH/MM3 (0-0.4); EOSINOPHIL % 2.7 % (0.0-4.0); HEMATOCRIT 41.7 % (35.0-46.0); HEMO FLAGS DIFF FINAL; LYMPH % 31.4 % (9.0-44.0); LYMPHOCYTE # 2.7 TH/MM3 (1.0-4.8); MEAN CELL VOLUME 86.1 FL (80.0-100.0); MEAN CORPUSCULAR HEMOGLOBIN 28.9 PG (27.0-34.0); MEAN CORPUSCULAR HGB CONC 33.6 % (32.0-36.0); MONO % 6.8 % (0.0-8.0); NEUT % 58.2 % (16.0-70.0); PLATELET COUNT 377 TH/MM3 (150-450); RED BLOOD COUNT 4.84 MIL/MM3 (4.00-5.30); RED CELL DISTRIBUTION WIDTH 13.2 % (11.6-17.2); WHITE BLOOD COUNT 8.7 TH/MM3 (4.0-11.0)
[2016-12-21 21:54] VITALS: RESP 16; O2SAT 100
[2016-12-21 21:54] LABS: BACTERIA, URINE RARE /hpf; BLOOD, URINE NEG (NEG); COMMENT (UR) CULT NOT INDICATED; CULTURE IF INDICATED CULT NOT INDICATED; GLUCOSE,URINE NEG (NEG); KETONE, URINE NEG (NEG); NITRITE,URINE NEG (NEG); PH, URINE 6.5 (5.0-8.5); SQUAMOUS EPITHELIAL CELL URINE 1 /hpf (0-5); URINE COLOR LIGHT-YELLOW (YELLW/STRAW)
[2016-12-21 21:58] LABS: APTT (PATIENT) 27.9 SEC (24.3-30.1); INTERNATIONAL NORMALIZED RATIO 0.9 RATIO; PROTHROMBIN TIME - PATIENT 9.7 SEC (9.8-11.6)
--- NOTE | 2016-12-21 21:59 | RADRPT ---
EXAM DATE/TIME: 12/21/2016 21:19 [place] COMPARISON: CT ABDOMEN & PELVIS W/O CONTRAST, October 16, 2016, 1:39. INDICATIONS : Right flank pain. ORAL CONTRAST: No oral contrast ingested. RADIATION DOSE: 29.75 CTDIvol (mGy) MEDICAL HISTORY : Renal calculi. Hernia, inguinal. Ovarian cysts. SURGICAL HISTORY : Cholecystectomy. Hysterectomy. section. ENCOUNTER: Initial ACUITY: 2 days PAIN SCALE: 8/10 LOCATION: Right flank TECHNIQUE: Volumetric scanning of the abdomen and pelvis was performed. Using automated exposure control and adjustment of the mA and/or kV according to patient size, radiation dose was kept as low as reasonably achievable to obtain optimal diagnostic quality images. DICOM format image data is av ailable electronically for review and comparison. FINDINGS: LOWER LUNGS: The visualized lower lungs are clear. LIVER: Homogeneous density without lesion. There is no dilation of the biliary tree. Once in ray ce prior cholecystectomy SPLEEN: Normal size without lesion. PANCREAS: Within normal limits. KIDNEYS: Normal in size and shape. There is no mass or hydronephrosis. Punctate calculus left ki dney lower pole calyx and 2 calyceal calculi in the right kidney mid to lower pole. ADRENAL GLANDS: Within normal limits. VASCULAR: There is no aortic aneurysm. BOWEL/MESENTERY: The stomach, small bowel, and colon demonstrate no acute abnormality. There is no free intraperitoneal air or fluid. ABDOMINAL WALL: Postsurgical changes anterior abdominal wall with fat containing hernia. RETROPERITONEUM: There is no lymphadenopathy. BLADDER: No wall thickening or mass. REPRODUCTIVE: Within normal limits. INGUINAL: There is no lymphadenopathy or hernia. MUSCULOSKELETAL: Within normal limits for patient age. CONCLUSION: 2 distal left ureteral stones noted on prior study are absent. There is one punctate left kidney calyceal stone nonobstructive 2 right kidney calyceal stones nonobstructive. The 2 distal left ureteral calculi on prior study with obstructive uropathy have cleared Surgical absence of gallbladder. Stable lower abdominal pelv ic right-sided hernia postsurgical containing fat. Brian Perkins MD on December 21, 2016 at 21:53 Board Certified Radiologist. This report was verified electronically.
[2016-12-21] MEDS ORDERED: CYCL1TAB29 PO (22:03)
[2016-12-21] MEDS ORDERED: VENL37.5 PO (22:03)
[2016-12-21 22:05] LABS: ANION GAP 6 MEQ/L (5-15); AST (GOT) 16 U/L (15-37); BICARBONATE 28.6 MEQ/L (21.0-32.0); BLOOD UREA NITROGEN 10 MG/DL (7-18); CHLORIDE 102 MEQ/L (98-107); GLOMERULAR FILTRATION RATE 74 ML/MIN (>89); POTASSIUM 3.7 MEQ/L (3.5-5.1); SODIUM (NA) 137 MEQ/L (136-145)
[2016-12-21 22:06] LABS: ALT (GPT) 23 U/L (10-53)
[2016-12-21 22:09] LABS: ALKALINE PHOSPHATASE 116 U/L (45-117); TOTAL BILIRUBIN ADULT 0.1 MG/DL (0.2-1.0)
[2016-12-21] MEDS ORDERED: ZOFR4TAB3 SL (22:21)
[2016-12-21] MEDS ORDERED: PERC5TAB12 PO (22:21)
[2016-12-21 22:26] VITALS: RESP 14
[2016-12-21] MEDS ORDERED: MORPHINE SULFATE 4 MG/ML INJ IV PUSH ONE (22:30)
[2016-12-21 22:37] VITALS: BP 151/74; TEMP 98.3
[2016-12-29] MEDS ORDERED: TRAM50TA PO (23:02)
[2016-12-30] MEDS ORDERED: CEPH-460 PO (01:29)
[2016-12-30] MEDS ORDERED: NAPR500T PO (01:29)
== END 2016-12-21 22:48 | disposition home or self-care (01) ==
LOC: NEPD 18:18
DX: N23 Unspecified renal colic (principal); E83.52 Hypercalcemia; Z87.442 Personal history of urinary calculi
CPT/HCPCS: 74176; 80053; 81001; 85025; 85610; 85730; 96361; 96374; 96375; 99285; J1885; J2270; J2405; J7030

== ENCOUNTER 2016-12-23 15:47 | Emergency (ER) | payer OTHER ==
[~2016-12-23] VITALS: Ht 149.9 cm; Wt 97.5 kg
[~2016-12-23 15:47] MED LIST changes: -BACT800T5 PO; -CIPR-9 PO; +CYCL1TAB29 PO; -HYDR-3533 PO; -PROM25TA10 PO; -TAMS5CAP PO; +VENL37.5 PO; +ZOFR4TAB3 SL
[2016-12-23 15:50] VITALS: BP 133/64; PULSE 84; RESP 13; TEMP 97.7; O2SAT 98
--- NOTE | 2016-12-23 16:07 | PD ---
HPI Chief Complaint: Flank/Kidney Pain Time Seen by Provider: 16:04 Travel History International Travel<30 days: No Contact w/Intl Traveler<30days: No Traveled to known affect area: No History of Present Illness HPI 41-year-old female with complaints of bilateral flank pain with history of kidney stone. Patient was seen here on 12-08-2016, and 12-21-2016 with history of renal colic and multiple kidney stones in both ureters. Patient now complaining of more pain in the central bladder with dysuria as well as ongoing bilateral flank pain more on the right than the left. Patient denies fever, but has had sweats and nausea but no vomiting. Patient was sent home the other day with Zofran and anti-inflammatories. Patient currently has no urologist. Patient has a history of hypercalcemia disorder. PFSH Past Medical History Hx Anticoagulant Therapy: No Asthma: Yes ( A CHILD) Anxiety: Yes Depression: Yes Cancer: No Cardiovascular Problems: Yes (CHOLESTEROL) High Cholesterol: Yes Chemotherapy: No Cerebrovascular Accident: No Diabetes: No Diminished Hearing: No Endocrine: Yes Gastrointestinal Disorders: No Genitourinary: Yes (CHRONIC GROIN PAIN ) Hepatitis: No Hiatal Hernia: No Hypertension: No Immune Disorder: No Inguinal Hernia: Yes Kidney Stones: Yes Musculoskeletal: No Neurologic: No Psychiatric: Yes (anxiety) Reproductive: No Respiratory: No Immunizations Current: Yes Thyroid Disease: Yes (HYPO) ?: Not : 3 Para: 3 Ovarian Cysts: Yes Tubal Ligation: Yes Past Surgical History Abdominal Surgery: Yes (BIOPSY ABD RECTUS MUSCLE/BENIGN) AICD: No Section: Yes (X 1) Cholecystectomy: Yes Gynecologic Surgery: Yes (ABLATION) Hysterectomy: Yes Joint Replacement: No Pacemaker: No Tonsillectomy: Yes Other Surgery: Yes (HERNIA REPAIR X2; MASS REMOVED FROM NECK ) Social History Alcohol Use: No Tobacco Use: Yes (1/2PPD) Substance Use: No Allergies-Medications (Allergen,Severity, Reaction): Coded Allergies: No Known Allergies (Verified , 10/16/16) Reported Meds & Prescriptions Reported Meds & Active Scripts Active Zofran Odt (Ondansetron Odt) 4 Mg Tab 4 Mg SL Q8HR PRN Percocet (Oxycodone-Acetaminophen) 5-325 mg Tab 1 Tab PO Q6H PRN Reported Flexeril (Cyclobenzaprine HCl) 10 Mg Tab 10 Mg PO TID Effexor (Venlafaxine HCl) 37.5 Mg Tab 37.5 Mg PO HS Venlafaxine ER 24 HR (Venlafaxine HCl) 150 Mg Tab 150 Mg PO HS Levothyroxine (Levothyroxine Sodium) 25 Mcg Tab 25 Mcg PO HS Simvastatin 5 Mg Tab Unknown Dose PO HS Gabapentin 600 Mg Tab 600 Mg PO TID Diazepam 5 Mg Tab 5 Mg PO HS Review of Systems Except as stated in HPI: all other systems reviewed are Neg General / Constitutional: Positive: Chills, No: Fever Eyes: No: Visual changes HENT: No: Headaches Cardiovascular: No: Chest Pain or Discomfort Respiratory: No: Shortness of Breath Gastrointestinal: No: Abdominal Pain Genitourinary: Positive: Urgency, Frequency, Dysuria, Hematuria, Pelvic Pain, Flank Pain, No: Nocturia, Hesitancy, Dribbling, Incontinence, Discharge, Dysmenorrhea, Menorrhagia, Metorrhagia, Vaginal Bleeding Musculoskeletal: No: Pain Skin: No Rash Neurologic: No: Weakness Psychiatric: No: Depression Endocrine: No: Polydipsia Hematologic/Lymphatic: No: Easy Bruising Physical Exam Narrative GENERAL: Patient appears in mild to moderate distress. SKIN: Warm and dry. Normal color. Normal turgor. HEAD: Atraumatic. Normocephalic. EYES: Pupils equal and round. No scleral icterus. No injection or drainage. ENT: No nasal bleeding or discharge. Mucous membranes pink and moist. Pharynx is clear. Airway is patent. NECK: Trachea midline. Supple and nontender. CARDIOVASCULAR: Regular rate and rhythm. RESPIRATORY: No accessory muscle use. Clear to auscultation. Breath sounds equal bilaterally. GASTROINTESTINAL: Abdomen soft, moderate tenderness, nondistended. Moderate bilateral flank tenderness with percussion, more on the right than the left. Hepatic and splenic margins not palpable. MUSCULOSKELETAL: Extremities without clubbing, cyanosis, or edema. No obvious deformities. NEUROLOGICAL: Awake and alert. No obvious cranial nerve deficits. Motor grossly within normal limits. Five out of 5 muscle strength in the arms and legs. Normal speech. PSYCHIATRIC: Appropriate mood and affect; insight and judgment normal. Data Data Last Documented VS Vital Signs Date Time Temp Pulse Resp B/P (MAP) Pulse Ox O2 Delivery O2 Flow Rate FiO2 12/23/16 16:30 20 12/23/16 15:50 97.7 84 133/64 (87) 98 Orders Orders Complete Blood Count With Diff (12/23/16 16:32) Comprehensive Metabolic Panel (12/23/16 16:32) Urinalysis - C+S If Indicated (12/23/16 16:32) Iv Access Insert/Monitor (12/23/16 16:32) Ecg Monitoring (12/23/16 16:32) Ondansetron Inj (Zofran Inj) (12/23/16 16:45) Ketorolac Inj (Toradol Inj) (12/23/16 16:45) Ketorolac Inj (Toradol Inj) (12/23/16 16:45) Ondansetron Inj (Zofran Inj) (12/23/16 16:45) Urine Culture (12/23/16 16:35) Ceftriaxone Inj (Rocephin Inj) (12/23/16 17:00) Ct Abd/Pel W/O Iv Contrast (12/23/16 17:01) Labs Laboratory Tests Test 12/23/16 16:35 White Blood Count 5.9 TH/MM3 Red Blood Count 4.21 MIL/MM3 Hemoglobin 12.4 GM/DL Hematocrit 36.5 % Mean Corpuscular Volume 86.7 FL Mean Corpuscular Hemoglobin 29.5 PG Mean Corpuscular Hemoglobin Concent 34.0 % Red Cell Distribution Width 13.5 % Platelet Count 311 TH/MM3 Mean Platelet Volume 7.3 FL Neutrophils (%) (Auto) 43.7 % Lymphocytes (%) (Auto) 42.7 % Monocytes (%) (Auto) 8.0 % Eosinophils (%) (Auto) 4.7 % Basophils (%) (Auto) 0.9 % Neutrophils # (Auto) 2.6 TH/MM3 Lymphocytes # (Auto) 2.5 TH/MM3 Monocytes # (Auto) 0.5 TH/MM3 Eosinophils # (Auto) 0.3 TH/MM3 Basophils # (Auto) 0.1 TH/MM3 CBC Comment DIFF FINAL Differential Comment Urine Color YELLOW Urine Turbidity HAZY Urine pH 5.5 Urine Specific [place] 1.022 Urine Protein TRACE mg/dL Urine Glucose (UA) NEG mg/dL Urine Ketones NEG mg/dL Urine Occult Blood MOD Urine Nitrite NEG Urine Bilirubin NEG Urine Urobilinogen LESS THAN 2.0 MG/DL Urine Leukocyte Esterase LARGE Urine RBC 165 /hpf Urine WBC 31 /hpf Urine Squamous Epithelial Cells 6 /hpf Urine Mucus FEW /lpf Microscopic Urinalysis Comment CULTURE INDICATED Blood Urea Nitrogen 14 MG/DL Creatinine 0.75 MG/DL Random Glucose 93 MG/DL Total Protein 7.2 GM/DL Albumin 3.4 GM/DL Calcium Level 10.6 MG/DL Alkaline Phosphatase 106 U/L Aspartate Amino Transf (AST/SGOT) 19 U/L Alanine Aminotransferase (ALT/SGPT) 22 U/L Total Bilirubin LESS THAN 0.1 MG/DL Sodium Level 140 MEQ/L Potassium Level 4.0 MEQ/L Chloride Level 105 MEQ/L Carbon Dioxide Level 29.4 MEQ/L Anion Gap 6 MEQ/L Estimat Glomerular Filtration Rate 85 ML/MIN MDM Medical Decision Making Medical Screen Exam Complete: Yes Emergency Medical Condition: Yes Medical Record Reviewed: Yes Differential Diagnosis Ongoing flank pain. Recurrent renal colic. Urinary tract infection. Malingering. Narrative Course Patient is uncomfortable but medically stable at time of exam. Labs ordered including CBC, CMP, and urinalysis. Repeat abdomen and pelvis CT is ordered without contrast. Urinalysis suggested possible urinary tract infection. CBC is unremarkable. CMP is also unremarkable with BUN 14, and creatinine of 0.75. Patient is given 1000 mg Rocephin IV. Patient also given 30 mg Toradol and [address] shows no acute abnormalities to explain the patient's pain, #2 bilateral nonobstructing renal calculi. #3, 2 anterior abdominal wall hernias containing fat. Number for prior cholecystectomy. Patient is discussed with Dr. Paulson and he feels the patient is stable for discharge. Patient has oxycodone, ibuprofen, and Zofran home. Recommend patient follow-up with Dr. Diaz, the urologist on-call as needed. Patient follow with her primary care physician as needed as well. Diagnosis Primary Impression: Renal colic, bilateral Additional Impression: Abdominal pain Qualified Codes: R10.30 - Lower abdominal pain, unspecified Referrals: Suleiman Diaz MD as needed Patient Instructions: General Instructions, Renal Colic (ED) Additional Instructions: Repeat abdomen and pelvis CT is ordered without contrast. Urinalysis suggested possible urinary tract infection. CBC is unremarkable. CMP is also unremarkable with BUN 14, and creatinine of 0.75. Patient is given 1000 mg Rocephin IV. Patient also given 30 mg Toradol and [address] shows no acute abnormalities to explain the patient's pain, #2 bilateral nonobstructing renal calculi. #3, 2 anterior abdominal wall hernias containing fat. Number for prior cholecystectomy. Patient is discussed with Dr. Paulson and he feels the patient is stable for discharge. Patient has oxycodone, ibuprofen, and Zofran home. Recommend patient follow-up with Dr. Diaz, the urologist on-call as needed. Patient follow with her primary care physician as needed as well. Med/Other Pt SpecificInfo: No Change to Meds Disposition: 01 DISCHARGE HOME Condition: Stable Mehdi Forbes Dec 23, 2016 16:07
[2016-12-23] MEDS ORDERED: KETOROLAC TROMETHAMINE 30 MG/ML (IVP) VIAL IV PUSH ONE (16:45)
[2016-12-23] MEDS ORDERED: ONDANSETRON HCL 4 MG/2 ML VIAL IM ONE (16:45)
[2016-12-23] MEDS ORDERED: KETOROLAC TROMETHAMINE 60 MG/2 ML (IM) VIAL IM ONE (16:45)
[2016-12-23] MEDS ORDERED: ONDANSETRON HCL 4 MG/2 ML VIAL IV PUSH ONE (16:45)
[2016-12-23 16:46] LABS: AUTOMATED NEUTROPHIL # 2.6 TH/MM3 (1.8-7.7); BASOPHIL # 0.1 TH/MM3 (0-0.2); BASOPHIL % 0.9 % (0.0-2.0); EOSINOPHIL # 0.3 TH/MM3 (0-0.4); EOSINOPHIL % 4.7 % (0.0-4.0); HEMATOCRIT 36.5 % (35.0-46.0); HEMO FLAGS DIFF FINAL; LYMPH % 42.7 % (9.0-44.0); LYMPHOCYTE # 2.5 TH/MM3 (1.0-4.8); MEAN CELL VOLUME 86.7 FL (80.0-100.0); MEAN CORPUSCULAR HEMOGLOBIN 29.5 PG (27.0-34.0); NEUT % 43.7 % (16.0-70.0); PLATELET COUNT 311 TH/MM3 (150-450); RED BLOOD COUNT 4.21 MIL/MM3 (4.00-5.30); RED CELL DISTRIBUTION WIDTH 13.5 % (11.6-17.2); WHITE BLOOD COUNT 5.9 TH/MM3 (4.0-11.0)
[2016-12-23 16:51] LABS: BLOOD, URINE MOD (NEG); COMMENT (UR) CULTURE INDICATED; CULTURE IF INDICATED CULTURE INDICATED; GLUCOSE,URINE NEG (NEG); KETONE, URINE NEG (NEG); MUCUS URINE FEW /lpf (OCC); NITRITE,URINE NEG (NEG); PH, URINE 5.5 (5.0-8.5); SQUAMOUS EPITHELIAL CELL URINE 6 /hpf (0-5); URINE COLOR YELLOW (YELLW/STRAW)
[2016-12-23] MEDS ORDERED: cefTRIAXone INJ 1,000 MG in SODIUM CHLORIDE 0.9% INJ 100 ML IV ONE (17:00)
[2016-12-23 17:03] LABS: ALT (GPT) 22 U/L (10-53); ANION GAP 6 MEQ/L (5-15); AST (GOT) 19 U/L (15-37); BICARBONATE 29.4 MEQ/L (21.0-32.0); BLOOD UREA NITROGEN 14 MG/DL (7-18); CHLORIDE 105 MEQ/L (98-107); GLOMERULAR FILTRATION RATE 85 ML/MIN (>89); SODIUM (NA) 140 MEQ/L (136-145)
[2016-12-23 17:04] LABS: ALKALINE PHOSPHATASE 106 U/L (45-117); TOTAL BILIRUBIN ADULT LESS THAN 0.1 MG/DL (0.2-1.0)
--- NOTE | 2016-12-23 17:31 | RADRPT ---
EXAM DATE/TIME: 12/23/2016 17:07 [facility] COMPARISON: CT ABDOMEN & PELVIS W/O CONTRAST, December 21, 2016, 21:19. INDICATIONS : Bilateral flank pain, history renal stones.Hypercalcemia. ORAL CONTRAST: No oral contrast ingested. RADIATION DOSE: 30.02 CTDIvol (mGy) MEDICAL HISTORY : Cardiovascular disease. SURGICAL HISTORY : Cholecystectomy. Hysterectomy.Hernia repair. ENCOUNTER: Initial ACUITY: 2 days PAIN SCALE: 8/10 LOCATION: Bilateral abdominal. TECHNIQUE: Volumetric scanning of the abdomen and pelvis was performed. Using automated exposure control and ad justment of the mA and/or kV according to patient size, radiation dose was kept as low as reasonably achievable to obtain optimal diagnostic quality images. DICOM format image data is available electro nically for review and comparison. FINDINGS: LOWER LUNGS: The visualized lower lungs are clear. LIVER: Homogeneous density without lesion. There is no dilation of the biliary tree. Gallbladder is surgica lly absent. SPLEEN: Normal size without lesion. PANCREAS: Within normal limits. KIDNEYS: Normal in size and shape. There is no mass or hydronephrosis. 2 renal stones on the right with the l argest measuring 2 mm. A single 1 mm stone on the left. No ureteral stones. No hydronephrosis or hydr oureter. ADRENAL GLANDS: Within normal limits. VASCULAR: There is no aortic aneurysm. BOWEL/MESENTERY: The stomach, small bowel, and colon demonstrate no acute abnormality. There is no free intraperitone al air or fluid. ABDOMINAL WALL: 2 hernias are seen. One is a ventral hernia containing omental fat. This is broad-based in nature. Th e second is a Spigellian hernia containing omental fat. This is broad-based in nature. RETROPERITONEUM: There is no lymphadenopathy. BLADDER: No wall thickening or mass. REPRODUCTIVE: Within normal limits. INGUINAL: There is no lymphadenopathy or hernia. MUSCULOSKELETAL: Within normal limits for patient age. CONCLUSION: 1. No acute abnormality to explain the patient's pain. 2. Bilateral nonobstructing renal calculi. 3. 2 anterior abdominal wall hernias containing fat. 4. Prior cholecystectomy. Jesús Florentino Jr., MD on December 23, 2016 at 17:25 Board Certified Radiologist. This report was verified electronically.
[2016-12-23] MEDS ORDERED: oxyCODONE/ACETAMINOPHEN 5 MG/325 MG TAB PO ONE (18:30)
[2016-12-29] MEDS ORDERED: TRAM50TA PO (23:02)
[2016-12-30] MEDS ORDERED: CEPH-460 PO (01:29)
[2016-12-30] MEDS ORDERED: NAPR500T PO (01:29)
== END 2016-12-23 22:50 | disposition home or self-care (01) ==
LOC: NEPC 15:47
DX: R10.30 Lower abdominal pain, unspecified (principal); Z87.442 Personal history of urinary calculi
CPT/HCPCS: 74176; 80053; 81001; 85025; 87086; 96365; 96366; 96375; 99285; J0696; J1885; J2405

== ENCOUNTER 2016-12-29 22:25 | Emergency (ER) | payer OTHER ==
[2016-12-29 22:27] VITALS: BP 159/80; PULSE 107; RESP 16; TEMP 98.4; O2SAT 97
[2016-12-29] MEDS ORDERED: TRAM50TA PO ×2 (23:02)
[2016-12-29] MEDS ORDERED: SODIUM CHLOR 0.9% 1000 ML INJ 1,000 ML IV ONE ×4 (23:30)
[2016-12-29] MEDS ORDERED: ONDANSETRON HCL 4 MG/2 ML VIAL IV PUSH ONE ×2 (23:30)
[2016-12-29] MEDS ORDERED: KETOROLAC TROMETHAMINE 30 MG/ML (IVP) VIAL IV PUSH ONE ×2 (23:30)
[2016-12-29 23:43] LABS: AUTOMATED NEUTROPHIL # 5.5 TH/MM3 (1.8-7.7); BASOPHIL # 0.1 TH/MM3 (0-0.2); EOSINOPHIL # 0.3 TH/MM3 (0-0.4); EOSINOPHIL % 3.8 % (0.0-4.0); HEMATOCRIT 39.1 % (35.0-46.0); HEMOGLOBIN 13.3 GM/DL (11.6-15.3); LYMPHOCYTE # 2.1 TH/MM3 (1.0-4.8); MEAN CELL VOLUME 86.4 FL (80.0-100.0); MEAN CORPUSCULAR HEMOGLOBIN 29.5 PG (27.0-34.0); MEAN CORPUSCULAR HGB CONC 34.1 % (32.0-36.0); MEAN PLATELET VOLUME 7.8 FL (7.0-11.0); MONO % 6.6 % (0.0-8.0); MONOCYTE # 0.6 TH/MM3 (0-0.9); NEUT % 63.6 % (16.0-70.0); PLATELET COUNT 381 TH/MM3 (150-450); RED BLOOD COUNT 4.52 MIL/MM3 (4.00-5.30); RED CELL DISTRIBUTION WIDTH 13.2 % (11.6-17.2); WHITE BLOOD COUNT 8.6 TH/MM3 (4.0-11.0)
[2016-12-29 23:45] LABS: AMORPHOUS SEDIMENT, URINE RARE; BACTERIA, URINE FEW /hpf; BILIRUBIN, URINE NEG (NEG); BLOOD, URINE NEG (NEG); GLUCOSE,URINE NEG (NEG); KETONE, URINE NEG (NEG); MUCUS URINE FEW /lpf (OCC); NITRITE,URINE NEG (NEG); PH, URINE 6.5 (5.0-8.5); SQUAMOUS EPITHELIAL CELL URINE 7 /hpf (0-5); URINE COLOR YELLOW (YELLW/STRAW); URINE LEUKOCYTE ESTERASE LARGE (NEG)
[2016-12-30 00:40] LABS: ALT (GPT) 32 U/L (10-53)
[2016-12-30 00:41] LABS: ALKALINE PHOSPHATASE 133 U/L (45-117); TOTAL BILIRUBIN ADULT 0.2 MG/DL (0.2-1.0); TOTAL PROTEIN 7.6 GM/DL (6.4-8.2)
[2016-12-30 00:43] LABS: ALBUMIN 3.4 GM/DL (3.4-5.0); AST (GOT) 27 U/L (15-37); BICARBONATE 28.7 MEQ/L (21.0-32.0); BLOOD UREA NITROGEN 12 MG/DL (7-18); CALCIUM 10.3 MG/DL (8.5-10.1); CHLORIDE 101 MEQ/L (98-107); CREATININE 0.99 MG/DL (0.50-1.00); GLOMERULAR FILTRATION RATE 62 ML/MIN (>89); GLUCOSE,RANDOM 129 MG/DL (74-106); SODIUM (NA) 137 MEQ/L (136-145)
--- NOTE | 2016-12-30 01:24 | PD ---
HPI Chief Complaint: Abdominal Pain Time Seen by Provider: 23:02 Travel History International Travel<30 days: No Contact w/Intl Traveler<30days: No Traveled to known affect area: No History of Present Illness HPI This is a 41-year-old female who presents to the emergency department with bilateral flank pain that's been going on for 2 weeks ever since she came to the emergency department on December 21. The patient has a history of hypercalcemia and has frequent kidney stones. She says that her back aches, constant, severe, and her pain has not changed since when she was last year. She denies any fevers or chills. She has felt nauseous. She says she has had surgery on a kidney stone in the past. She also had surgery on an abdominal tumor earlier this year. She said she took a Toradol for the pain earlier today and she took her last Percocet yesterday. She also reports that she's been feeling sweaty, nauseous and generally ill, worse over the past 2 days. She is supposed to see an lidding machine operator regarding her hypercalcemia that she' s having insurance trouble. PFSH Past Medical History Hx Anticoagulant Therapy: No Asthma: Yes ( A CHILD) Anxiety: Yes Depression: Yes Cancer: No Cardiovascular Problems: Yes (CHOLESTEROL) High Cholesterol: Yes Chemotherapy: No Cerebrovascular Accident: No Diabetes: No Diminished Hearing: No Endocrine: Yes Gastrointestinal Disorders: No Genitourinary: Yes (CHRONIC GROIN PAIN ) Hepatitis: No Hiatal Hernia: No Hypertension: No Immune Disorder: No Inguinal Hernia: Yes Kidney Stones: Yes Musculoskeletal: No Neurologic: No Psychiatric: Yes (anxiety) Reproductive: No Respiratory: No Immunizations Current: Yes Thyroid Disease: Yes (HYPO) ?: Not : 3 Para: 3 Ovarian Cysts: Yes Tubal Ligation: Yes Past Surgical History Abdominal Surgery: Yes (BIOPSY ABD RECTUS MUSCLE/BENIGN) AICD: No Section: Yes (X 1) Cholecystectomy: Yes Gynecologic Surgery: Yes (ABLATION) Hysterectomy: Yes (2015) Joint Replacement: No Pacemaker: No Tonsillectomy: Yes Other Surgery: Yes (HERNIA REPAIR X2; MASS REMOVED FROM NECK ) Social History Alcohol Use: No Tobacco Use: Yes (1/2PPD) Substance Use: No Allergies-Medications (Allergen,Severity, Reaction): Coded Allergies: No Known Allergies (Verified , 10/26/17) Reported Meds & Prescriptions Reported Meds & Active Scripts Active Zofran Odt (Ondansetron Odt) 4 Mg Tab 4 Mg SL Q8HR PRN Percocet (Oxycodone-Acetaminophen) 5-325 mg Tab 1 Tab PO Q6H PRN Reported Tramadol (Tramadol HCl) 50 Mg Tab 10 Mg PO Q4H PRN Flexeril (Cyclobenzaprine HCl) 10 Mg Tab 10 Mg PO TID Effexor (Venlafaxine HCl) 37.5 Mg Tab 37.5 Mg PO HS Venlafaxine ER 24 HR (Venlafaxine HCl) 150 Mg Tab 150 Mg PO HS Levothyroxine (Levothyroxine Sodium) 25 Mcg Tab 25 Mcg PO HS Simvastatin 5 Mg Tab Unknown Dose PO HS Gabapentin 600 Mg Tab 600 Mg PO TID Diazepam 5 Mg Tab 5 Mg PO HS Review of Systems Except as stated in HPI: all other systems reviewed are Neg Physical Exam Narrative GENERAL:Well appearing, no acute distress SKIN: Focused skin assessment warm and dry. HEAD: Atraumatic. Normocephalic. EYES: Pupils equal and round. No injection or drainage. ENT: Moist mucous membranes NECK: Trachea midline. CARDIOVASCULAR: Regular rate and rhythm. No murmur appreciated. RESPIRATORY: Clear to auscultation. Breath sounds equal bilaterally. GASTROINTESTINAL: Abdomen soft, non-tender, nondistended. : Bilateral CVA tenderness. MUSCULOSKELETAL: No obvious deformities. NEUROLOGICAL: Awake and alert. No obvious cranial nerve deficits. Moving all extremities. PSYCHIATRIC: Appropriate mood and affect; insight and judgment normal. Data Data Last Documented VS Vital Signs Date Time Temp Pulse Resp B/P (MAP) Pulse Ox O2 Delivery O2 Flow Rate FiO2 12/29/16 22:27 98.4 107 16 159/80 (106) 97 Room Air Orders Orders Complete Blood Count With Diff (12/29/16 23:16) Comprehensive Metabolic Panel (12/29/16 23:16) ^ Insert Iv (12/29/16 23:16) Ketorolac Inj (Toradol Inj) (12/29/16 23:30) Sodium Chlor 0.9% 1000 Ml Inj (Ns 1000 M (12/29/16 23:30) Ondansetron Inj (Zofran Inj) (12/29/16 23:30) Sodium Chlor 0.9% 1000 Ml Inj (Ns 1000 M (12/29/16 23:30) Urinalysis - C+S If Indicated (12/29/16 23:16) Urine Culture (12/29/16 23:26) Labs Laboratory Tests Test 12/29/16 23:26 White Blood Count 8.6 TH/MM3 Red Blood Count 4.52 MIL/MM3 Hemoglobin 13.3 GM/DL Hematocrit 39.1 % Mean Corpuscular Volume 86.4 FL Mean Corpuscular Hemoglobin 29.5 PG Mean Corpuscular Hemoglobin Concent 34.1 % Red Cell Distribution Width 13.2 % Platelet Count 381 TH/MM3 Mean Platelet Volume 7.8 FL Neutrophils (%) (Auto) 63.6 % Lymphocytes (%) (Auto) 25.0 % Monocytes (%) (Auto) 6.6 % Eosinophils (%) (Auto) 3.8 % Basophils (%) (Auto) 1.0 % Neutrophils # (Auto) 5.5 TH/MM3 Lymphocytes # (Auto) 2.1 TH/MM3 Monocytes # (Auto) 0.6 TH/MM3 Eosinophils # (Auto) 0.3 TH/MM3 Basophils # (Auto) 0.1 TH/MM3 CBC Comment DIFF FINAL Differential Comment Urine Color YELLOW Urine Turbidity HAZY Urine pH 6.5 Urine Specific [place] 1.023 Urine Protein TRACE mg/dL Urine Glucose (UA) NEG mg/dL Urine Ketones NEG mg/dL Urine Occult Blood NEG Urine Nitrite NEG Urine Bilirubin NEG Urine Urobilinogen 2.0 MG/DL Urine Leukocyte Esterase LARGE Urine RBC 32 /hpf Urine WBC 33 /hpf Urine Squamous Epithelial Cells 7 /hpf Urine Amorphous Sediment RARE Urine Bacteria FEW /hpf Urine Mucus FEW /lpf Microscopic Urinalysis Comment CULTURE INDICATED Blood Urea Nitrogen 12 MG/DL Creatinine 0.99 MG/DL Random Glucose 129 MG/DL Total Protein 7.6 GM/DL Albumin 3.4 GM/DL Calcium Level 10.3 MG/DL Alkaline Phosphatase 133 U/L Aspartate Amino Transf (AST/SGOT) 27 U/L Alanine Aminotransferase (ALT/SGPT) 32 U/L Total Bilirubin 0.2 MG/DL Sodium Level 137 MEQ/L Potassium Level 4.1 MEQ/L Chloride Level 101 MEQ/L Carbon Dioxide Level 28.7 MEQ/L Anion Gap 7 MEQ/L Estimat Glomerular Filtration Rate 62 ML/MIN MDM Medical Decision Making Medical Screen Exam Complete: Yes Emergency Medical Condition: Yes Medical Record Reviewed: Yes (CT abdomen and pelvis from December 21 demonstrates stones in the renal calyces with no ureteral stones. Similarly CT scan from December 23 demonstrates no abnormality to explain the patient's pain.) Interpretation(s) No leukocytosis Mild hypercalcemia Urinalysis demonstrates blood and white blood cells Differential Diagnosis Nephrolithiasis, pyelonephritis, interstitial cystitis, musculoskeletal back pain, chronic pain Narrative Course This is a 41-year-old female who presents to the emergency department with bilateral flank pain that's been constant since her last visit here on December 23. She has a long history of kidney stones. Labs were obtained which were reassuring. She does have some blood and white blood cells in her urine suggestive of a possible urinary tract infection. She's had [address] scans in our system, the most recent 2 were performed on December 21 and December 23. Neither of those studies demonstrated kidney stones in the ureter to explain her current pain. Patient does seem to struggle with chronic pain. She is received 29 controlled substance prescriptions from 15 different providers this year. She's been to the emergency department multiple times for pain related complaints. I had a long conversation with the patient regarding her pain. I don't think it 's appropriate to continue to write for opiate pain medications from the emergency department for this patient is on her last [address] imaging that did not demonstrate acute pathology to explain her pain. I don't think she benefit from further CT imaging. She certainly merits follow-up with subspecialists to identify the underlying etiology of her pain. I don't suspect an emergent or surgical etiology of her symptoms. Patient was treated with anti-inflammatories and will be discharged home. She was given an antibiotic for her pyuria. Diagnosis Primary Impression: Flank pain, chronic Patient Instructions: General Instructions Additional Instructions: If you develop severe or worsening abdominal pain, fever>100.4, persistent vomiting or inability to eat or drink return to the emergency department immediately. Follow up with your primary care physician in 1-2 days for a check-up. Med/Other Pt SpecificInfo: Prescription(s) given Scripts Cephalexin (Keflex) 500 Mg Cap 500 MG PO Q12H for Infection for 7 Days, #14 CAP 0 Refills Prov: Ashley Victoria MD 12/30/16 Naproxen (Naproxen) 500 Mg Tab 500 MG PO BID Y for PAIN SCALE 4 TO 10, #20 TAB 0 Refills Prov: Ashley Victoria MD 12/30/16 Disposition: 01 DISCHARGE HOME Condition: Stable Ashley Victoria MD Dec 30, 2016 01:24
[2016-12-30] MEDS ORDERED: CEPH-460 PO ×2 (01:29)
[2016-12-30] MEDS ORDERED: NAPR500T PO ×2 (01:29)
[2017-01-05] MEDS ORDERED: MACR100C2 PO ×2 (07:54)
== END 2016-12-30 01:44 | disposition home or self-care (01) ==
LOC: NEPE 22:25
DX: R10.9 Unspecified abdominal pain (principal); F17.200 Nicotine dependence, unspecified, uncomplicated; R82.71 Bacteriuria; Z87.442 Personal history of urinary calculi
CPT/HCPCS: 80053; 81001; 85025; 87086; 96374; 96375; 99284; J1885; J2405; J7030

== ENCOUNTER 2017-01-04 14:09 | Emergency (ER) | payer OTHER ==
[~2017-01-04] VITALS: Ht 162.6 cm; Wt 100.0 kg
[~2017-01-04 14:09] MED LIST changes: +CEPH-460 PO; +CYCL10TA PO; -CYCL1TAB29 PO; +NAPR500T2 PO; +TRAM50TA PO
[2017-01-04 14:21] VITALS: BP 134/80; PULSE 98; RESP 18; TEMP 98; O2SAT 96
[2017-01-04 14:42] LABS: AUTOMATED NEUTROPHIL # 3.8 TH/MM3 (1.8-7.7); BASOPHIL # 0.1 TH/MM3 (0-0.2); BASOPHIL % 0.9 % (0.0-2.0); EOSINOPHIL # 0.3 TH/MM3 (0-0.4); EOSINOPHIL % 4.5 % (0.0-4.0); HEMO FLAGS DIFF FINAL; LYMPH % 32.9 % (9.0-44.0); LYMPHOCYTE # 2.4 TH/MM3 (1.0-4.8); MEAN CELL VOLUME 87.2 FL (80.0-100.0); MEAN CORPUSCULAR HEMOGLOBIN 29.4 PG (27.0-34.0); MEAN CORPUSCULAR HGB CONC 33.7 % (32.0-36.0); MONO % 8.2 % (0.0-8.0); NEUT % 53.5 % (16.0-70.0); PLATELET COUNT 373 TH/MM3 (150-450); RED CELL DISTRIBUTION WIDTH 13.5 % (11.6-17.2); WHITE BLOOD COUNT 7.2 TH/MM3 (4.0-11.0)
[2017-01-04 15:07] LABS: BACTERIA, URINE OCC /hpf; BLOOD, URINE NEG (NEG); CALCIUM OXALATE CRYSTALS,URINE OCC /hpf; COMMENT (UR) CULTURE INDICATED; CULTURE IF INDICATED CULTURE INDICATED; GLUCOSE,URINE NEG (NEG); KETONE, URINE NEG (NEG); MUCUS URINE FEW /lpf (OCC); NITRITE,URINE NEG (NEG); PH, URINE 6.5 (5.0-8.5); SQUAMOUS EPITHELIAL CELL URINE 10 /hpf (0-5); TRANSITIONAL EPI CELLS, URINE <1 /hpf; URINE COLOR YELLOW (YELLW/STRAW)
[2017-01-04 15:12] LABS: ALT (GPT) 26 U/L (10-53); ANION GAP 7 MEQ/L (5-15); AST (GOT) 19 U/L (15-37); BICARBONATE 29.4 MEQ/L (21.0-32.0); BLOOD UREA NITROGEN 11 MG/DL (7-18); CHLORIDE 102 MEQ/L (98-107); GLOMERULAR FILTRATION RATE 62 ML/MIN (>89); POTASSIUM 4.5 MEQ/L (3.5-5.1); SODIUM (NA) 138 MEQ/L (136-145)
[2017-01-04 15:14] LABS: ALKALINE PHOSPHATASE 116 U/L (45-117); TOTAL BILIRUBIN ADULT 0.2 MG/DL (0.2-1.0)
[2017-01-04 15:15] LABS: ALCOHOL LESS THAN 3 MG/DL (0-5)
[2017-01-04 15:19] LABS: ACETAMINOPHEN LESS THAN 2.0 MCG/ML (10.0-30.0)
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
[2017-01-04] MEDS ORDERED: NITROFURANTOIN MONOHYD MACROCR 100 MG CAP PO ONE (16:00)
[2017-01-04 16:28] VITALS: BP 120/80; PULSE 90; RESP 18; O2SAT 96
[2017-01-05 06:23] VITALS: BP 107/72; PULSE 89; RESP 16; O2SAT 97
[2017-01-05] MEDS ORDERED: MACR100C2 PO (07:54)
[2017-01-05] MEDS ORDERED: NITROFURANTOIN MONOHYD MACROCR 100 MG CAP PO ONE (08:00)
[2017-01-05 08:17] VITALS: BP 107/72; PULSE 89; RESP 16; O2SAT 97
== END 2017-01-05 08:57 ==
LOC: NEPJ 14:09
DX: R45.851 Suicidal ideations (principal); J45.909 Unspecified asthma, uncomplicated; F41.9 Anxiety disorder, unspecified; F32.9 Major depressive disorder, single episode, unspecified; E78.00 Pure hypercholesterolemia, unspecified; E03.9 Hypothyroidism, unspecified; F17.200 Nicotine dependence, unspecified, uncomplicated; Z87.442 Personal history of urinary calculi; Z79.899 Other long term (current) drug therapy
CPT/HCPCS: 80053; 80307; 81001; 85025; 87086; 99283

== ENCOUNTER 2017-01-20 13:51 | Emergency (ER) | payer OTHER ==
[~2017-01-20] VITALS: Ht 149.9 cm; Wt 100.0 kg
[~2017-01-20 13:51] MED LIST changes: +MACR100C2 PO; -PERC5TAB12 PO
[2017-01-20 13:52] VITALS: BP 133/71; PULSE 112; RESP 14; TEMP 98.3; O2SAT 97
[2017-01-20] MEDS ORDERED: ONDANSETRON HCL 4 MG/2 ML VIAL IVP ONE (15:45)
[2017-01-20] MEDS ORDERED: KETOROLAC TROMETHAMINE 30 MG/ML (IVP) VIAL IVP ONE (15:45)
--- NOTE | 2017-01-20 15:49 | PD ---
HPI Chief Complaint: GI Complaint Time Seen by Provider: 15:27 Travel History International Travel<30 days: No Contact w/Intl Traveler<30days: No History of Present Illness HPI 41yo F with PMH of chronic pain, nephrolithiasis, hyperparathyroid presents to the ED with c/o pain for 3 days. Said pain radiates from bilateral flank region to lower abdomen and is more on the left side. Associated with nausea but no vomiting. Pain is constant and there are waves of worsening pain. Denies any fever, chest pain, sob, dysuria, hematuria, vaginal bleeding or discharge, focal weakness or numbness. Said she took tramadol and ketorolac at 12pm and it did not help. PFSH Past Medical History Hx Anticoagulant Therapy: No Asthma: Yes ( A CHILD) Anxiety: Yes Depression: Yes Cancer: No Cardiovascular Problems: Yes (CHOLESTEROL) High Cholesterol: Yes Chemotherapy: No Cerebrovascular Accident: No Diabetes: No Diminished Hearing: No Endocrine: Yes Gastrointestinal Disorders: No Genitourinary: Yes (CHRONIC GROIN PAIN ) Hepatitis: No Hiatal Hernia: No Hypertension: No Immune Disorder: No Inguinal Hernia: Yes Kidney Stones: Yes Musculoskeletal: No Neurologic: No Psychiatric: Yes (anxiety) Reproductive: No Respiratory: No Immunizations Current: Yes Thyroid Disease: Yes (HYPO) ?: Not : 3 Para: 3 Ovarian Cysts: Yes Tubal Ligation: Yes Past Surgical History Abdominal Surgery: Yes (BIOPSY ABD RECTUS MUSCLE/BENIGN) AICD: No Section: Yes (X 1) Cholecystectomy: Yes Gynecologic Surgery: Yes (ABLATION) Hysterectomy: Yes Joint Replacement: No Pacemaker: No Tonsillectomy: Yes Other Surgery: Yes (HERNIA REPAIR X2; MASS REMOVED FROM NECK ) Social History Alcohol Use: No Tobacco Use: Yes (1/2PPD) Substance Use: No (Denies) Allergies-Medications (Allergen,Severity, Reaction): Coded Allergies: No Known Allergies (Verified , 12/29/16) Reported Meds & Prescriptions Reported Meds & Active Scripts Active Tylenol (Acetaminophen) 325 Mg Tab 650 Mg PO Q6H PRN Macrobid (Nitrofurantoin Monohydrate Macrocrystals) 100 Mg Capsule 100 Mg PO BID 7 Days Keflex (Cephalexin) 500 Mg Cap 500 Mg PO Q12H 7 Days Naproxen 500 Mg Tab 500 Mg PO BID PRN Zofran Odt (Ondansetron Odt) 4 Mg Tab 4 Mg SL Q8HR PRN Reported Tramadol (Tramadol HCl) 50 Mg Tab 10 Mg PO Q4H PRN Flexeril (Cyclobenzaprine HCl) 10 Mg Tab 10 Mg PO TID Effexor (Venlafaxine HCl) 37.5 Mg Tab 37.5 Mg PO HS Venlafaxine ER 24 HR (Venlafaxine HCl) 150 Mg Tab 150 Mg PO HS Levothyroxine (Levothyroxine Sodium) 25 Mcg Tab 25 Mcg PO HS Simvastatin 5 Mg Tab Unknown Dose PO HS Gabapentin 600 Mg Tab 600 Mg PO TID Diazepam 5 Mg Tab 5 Mg PO HS Review of Systems Except as stated in HPI: all other systems reviewed are Neg Physical Exam Narrative GENERAL: 41yo F not in distress. SKIN: Focused skin assessment warm/dry. HEAD: Atraumatic. Normocephalic. EYES: Pupils equal and round. No scleral icterus. No injection or drainage. CARDIOVASCULAR: Regular rate and rhythm. No murmur appreciated. RESPIRATORY: No accessory muscle use. Clear to auscultation. Breath sounds equal bilaterally. GASTROINTESTINAL: Abdomen soft,obese. Not tender to palpation. N rebound tenderness or guarding. BACK: No midline ttp thoracic or lumbar spine. +CVA tenderness on left. MUSCULOSKELETAL: No obvious deformities. No clubbing. No cyanosis. No edema. NEUROLOGICAL: Awake and alert. No obvious cranial nerve deficits. Motor grossly within normal limits. Normal speech. PSYCHIATRIC: Appropriate mood and affect; insight and judgment normal. Data Data Last Documented VS Vital Signs Date Time Temp Pulse Resp B/P (MAP) Pulse Ox O2 Delivery O2 Flow Rate FiO2 01/20/17 18:52 01/20/17 18:51 16 01/20/17 13:52 98.3 112 97 Orders Orders Complete Blood Count With Diff (01/20/17 15:39) Comprehensive Metabolic Panel (01/20/17 15:39) Lipase (01/20/17 15:39) Urinalysis - C+S If Indicated (01/20/17 15:39) Ondansetron Inj (Zofran Inj) (01/20/17 15:45) Ketorolac Inj (Toradol Inj) (01/20/17 15:45) Ed Urine Pregnancytest Poc (01/20/17 15:39) Sodium Chlor 0.9% 1000 Ml Inj (Ns 1000 M (01/20/17 17:00) Metoclopramide Inj (Reglan Inj) (01/20/17 17:30) Acetaminophen (Tylenol) (01/20/17 17:30) Labs Laboratory Tests Test 01/20/17 15:50 01/20/17 16:05 White Blood Count 6.8 TH/MM3 Red Blood Count 4.50 MIL/MM3 Hemoglobin 13.3 GM/DL Hematocrit 38.8 % Mean Corpuscular Volume 86.2 FL Mean Corpuscular Hemoglobin 29.5 PG Mean Corpuscular Hemoglobin Concent 34.2 % Red Cell Distribution Width 13.2 % Platelet Count 322 TH/MM3 Mean Platelet Volume 7.6 FL Neutrophils (%) (Auto) 51.5 % Lymphocytes (%) (Auto) 34.8 % Monocytes (%) (Auto) 9.0 % Eosinophils (%) (Auto) 3.9 % Basophils (%) (Auto) 0.8 % Neutrophils # (Auto) 3.5 TH/MM3 Lymphocytes # (Auto) 2.4 TH/MM3 Monocytes # (Auto) 0.6 TH/MM3 Eosinophils # (Auto) 0.3 TH/MM3 Basophils # (Auto) 0.1 TH/MM3 CBC Comment DIFF FINAL Differential Comment Blood Urea Nitrogen 11 MG/DL Creatinine 0.87 MG/DL Random Glucose 105 MG/DL Total Protein 7.7 GM/DL Albumin 3.4 GM/DL Calcium Level 10.2 MG/DL Alkaline Phosphatase 114 U/L Aspartate Amino Transf (AST/SGOT) 17 U/L Alanine Aminotransferase (ALT/SGPT) 23 U/L Total Bilirubin 0.1 MG/DL Sodium Level 138 MEQ/L Potassium Level 4.2 MEQ/L Chloride Level 105 MEQ/L Carbon Dioxide Level 27.8 MEQ/L Anion Gap 5 MEQ/L Estimat Glomerular Filtration Rate 71 ML/MIN Lipase 187 U/L Urine Color YELLOW Urine Turbidity HAZY Urine pH 6.0 Urine Specific [place] 1.016 Urine Protein NEG mg/dL Urine Glucose (UA) NEG mg/dL Urine Ketones NEG mg/dL Urine Occult Blood NEG Urine Nitrite NEG Urine Bilirubin NEG Urine Urobilinogen LESS THAN 2.0 MG/DL Urine Leukocyte Esterase MOD Urine RBC 4-9 /hpf Urine WBC 3-5 /hpf Urine Squamous Epithelial Cells 6-8 /hpf Urine Calcium Oxalate Crystals MANY /hpf Urine Bacteria FEW /hpf Urine Mucus FEW /lpf Microscopic Urinalysis Comment CULT NOT INDICATED MDM Medical Decision Making Medical Screen Exam Complete: Yes Emergency Medical Condition: Yes Differential Diagnosis Chronic pain vs. pyelonephritis vs. nephrolithiasis vs. malingering Narrative Course 41yo F here with complain of flank and abdominal pain for 3 days. Pt is well appearing and on her cell phone without any distress. Abdominal exam is not remarkable at all. Pt has had 17 CT a/p since 2010. Pt was last seen on for this and was very upset when she didnt give her any narcotics. Pt has gotten multiple narcotic prescriptions from different ED physicians. Will not give narcotics today. Will check labs, UA, give zofran and toradol. Labs reviewed, no leukocytosis. CMP unremarkable except for mild elevation of calcium at 10.2. Pt given NS IVF. Lipase normal. UA showed squamous of 6-8. Culture not indicated. Calcium oxalate crystal. Pt has history of nephrolithiasis and pain likely from nephrolithiasis. She is nontoxic appearing with normal labs and has had never CT scans before. Normal creatinine. Do not feel that additional imaging is needed at this time as abdominal exam is unremarkable. Pt given toradol, zofran, acetaminophen and reglan for pain and nausea. Pt tolerating PO. Return precautions given. Diagnosis Primary Impression: Abdominal pain Qualified Codes: R10.30 - Lower abdominal pain, unspecified Patient Instructions: General Instructions Departure Forms: Tests/Procedures Additional Instructions: Please follow up with your primary care physician in 2-3 days. Return to the ED if symptoms worsen. Med/Other Pt SpecificInfo: Prescription(s) given Scripts Acetaminophen (Tylenol) 325 Mg Tab 650 MG PO Q6H Y for PAIN SCALE 1 TO 4, #20 TAB 0 Refills Prov: Pretty Mccallum 01/20/17 Disposition: 01 DISCHARGE HOME Condition: Stable Pretty Mccallum Jan 20, 2017 15:49
[2017-01-20 16:09] LABS: AUTOMATED NEUTROPHIL # 3.5 TH/MM3 (1.8-7.7); BASOPHIL # 0.1 TH/MM3 (0-0.2); BASOPHIL % 0.8 % (0.0-2.0); EOSINOPHIL # 0.3 TH/MM3 (0-0.4); EOSINOPHIL % 3.9 % (0.0-4.0); HEMATOCRIT 38.8 % (35.0-46.0); HEMO FLAGS DIFF FINAL; LYMPH % 34.8 % (9.0-44.0); LYMPHOCYTE # 2.4 TH/MM3 (1.0-4.8); MEAN CELL VOLUME 86.2 FL (80.0-100.0); MEAN CORPUSCULAR HEMOGLOBIN 29.5 PG (27.0-34.0); MEAN CORPUSCULAR HGB CONC 34.2 % (32.0-36.0); NEUT % 51.5 % (16.0-70.0); PLATELET COUNT 322 TH/MM3 (150-450); RED CELL DISTRIBUTION WIDTH 13.2 % (11.6-17.2); WHITE BLOOD COUNT 6.8 TH/MM3 (4.0-11.0)
[2017-01-20 16:31] LABS: ALT (GPT) 23 U/L (10-53); ANION GAP 5 MEQ/L (5-15); AST (GOT) 17 U/L (15-37); BICARBONATE 27.8 MEQ/L (21.0-32.0); BLOOD UREA NITROGEN 11 MG/DL (7-18); CHLORIDE 105 MEQ/L (98-107); GLOMERULAR FILTRATION RATE 71 ML/MIN (>89); POTASSIUM 4.2 MEQ/L (3.5-5.1); SODIUM (NA) 138 MEQ/L (136-145)
[2017-01-20 16:33] LABS: ALKALINE PHOSPHATASE 114 U/L (45-117); TOTAL BILIRUBIN ADULT 0.1 MG/DL (0.2-1.0)
[2017-01-20] MEDS ORDERED: SODIUM CHLOR 0.9% 1000 ML INJ 1,000 ML IV ONE (17:00)
[2017-01-20 17:13] LABS: BLOOD, URINE NEG (NEG); GLUCOSE,URINE NEG (NEG); KETONE, URINE NEG (NEG); NITRITE,URINE NEG (NEG); URINE COLOR YELLOW (YELLW/STRAW)
[2017-01-20] MEDS ORDERED: TYLE325T PO (17:19)
[2017-01-20 17:28] LABS: MUCUS URINE FEW /lpf (OCC)
[2017-01-20 17:29] LABS: BACTERIA, URINE FEW /hpf; CALCIUM OXALATE CRYSTALS,URINE MANY /hpf; COMMENT (UR) CULT NOT INDICATED; CULTURE IF INDICATED CULT NOT INDICATED
[2017-01-20] MEDS ORDERED: ACETAMINOPHEN 325 MG TAB PO ONE (17:30)
[2017-01-20] MEDS ORDERED: METOCLOPRAMIDE INJ 10 MG in SODIUM CHLORIDE 0.9% INJ 50 ML IV ONE (17:30)
[2017-01-20 18:51] VITALS: RESP 16
== END 2017-01-20 18:54 | disposition home or self-care (01) ==
LOC: NEPD 13:51
DX: R10.30 Lower abdominal pain, unspecified (principal); F17.200 Nicotine dependence, unspecified, uncomplicated; E78.00 Pure hypercholesterolemia, unspecified
CPT/HCPCS: 80053; 81001; 83690; 84703; 85025; 96374; 96375; 99284; J1885; J2405; J2765; J7030

== ENCOUNTER 2017-01-30 21:38 | Emergency (ER) | payer OTHER ==
[~2017-01-30] VITALS: Ht 149.9 cm; Wt 100.0 kg
[~2017-01-30 21:38] MED LIST changes: +TYLE325T PO
[2017-01-30 21:39] VITALS: BP 155/85; PULSE 86; RESP 16; TEMP 98.3; O2SAT 99
[2017-01-30] MEDS ORDERED: VENL37.5 PO (23:30)
[2017-01-30 23:38] VITALS: BP 149/85; PULSE 87; RESP 15; TEMP 98.5; O2SAT 100
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
[2017-01-31] MEDS ORDERED: MORPHINE SULFATE 4 MG/ML INJ IV PUSH ONE (00:30)
[2017-01-31] MEDS ORDERED: SODIUM CHLORIDE 0.9% FLUSH 10 ML FLUSH IVF PRN (00:30)
[2017-01-31] MEDS ORDERED: ONDANSETRON HCL 4 MG/2 ML VIAL IV PUSH ONE (00:30)
[2017-01-31 00:53] LABS: AUTOMATED NEUTROPHIL # 3.9 TH/MM3 (1.8-7.7); BASOPHIL # 0.1 TH/MM3 (0-0.2); EOSINOPHIL # 0.3 TH/MM3 (0-0.4); EOSINOPHIL % 3.8 % (0.0-4.0); HEMATOCRIT 38.7 % (35.0-46.0); HEMO FLAGS DIFF FINAL; LYMPH % 33.3 % (9.0-44.0); LYMPHOCYTE # 2.4 TH/MM3 (1.0-4.8); MEAN CELL VOLUME 86.4 FL (80.0-100.0); MEAN CORPUSCULAR HEMOGLOBIN 29.4 PG (27.0-34.0); MEAN CORPUSCULAR HGB CONC 34.1 % (32.0-36.0); MONO % 6.5 % (0.0-8.0); NEUT % 55.4 % (16.0-70.0); PLATELET COUNT 324 TH/MM3 (150-450); RED BLOOD COUNT 4.49 MIL/MM3 (4.00-5.30); RED CELL DISTRIBUTION WIDTH 13.2 % (11.6-17.2)
[2017-01-31 01:04] LABS: APTT (PATIENT) 29.2 SEC (24.3-30.1); INTERNATIONAL NORMALIZED RATIO 0.9 RATIO; PROTHROMBIN TIME - PATIENT 10.3 SEC (9.8-11.6)
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
[2017-01-31 01:24] LABS: BICARBONATE 32.9 MEQ/L (21.0-32.0)
[2017-01-31] MEDS ORDERED: IOHEXOL 350 MG/ML 10 ML VIAL (for RAD DIAG) IVCONTRAST ONE (01:51)
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
[2017-01-31] MEDS ORDERED: CYCL10TA PO (02:29)
[2017-01-31 02:52] VITALS: BP 151/86
== END 2017-01-31 02:54 | disposition home or self-care (01) ==
LOC: NEPD 21:38
DX: S16.1XXA Strain of muscle, fascia and tendon at neck level, initial encounter (principal); S20.212A Contusion of left front wall of thorax, initial encounter; S80.02XA Contusion of left knee, initial encounter; R51 Headache; K76.0 Fatty (change of) liver, not elsewhere classified; K40.90 Unilateral inguinal hernia, without obstruction or gangrene, not specified as recurrent; N20.0 Calculus of kidney; E21.3 Hyperparathyroidism, unspecified; V43.62XA Car passenger injured in collision with other type car in traffic accident, initial encounter
CPT/HCPCS: 70450; 71260; 72125; 73564; 74177; 80048; 84702; 85025; 85610; 85730; 86850; 86900; 86901; 96374; 96375; 99285; J2270; J2405; Q9967

== ENCOUNTER 2017-05-20 15:37 | Emergency (ER) | payer OTHER ==
[~2017-05-20] VITALS: Ht 149.9 cm; Wt 100.0 kg
[~2017-05-20 15:37] MED LIST changes: -CEPH-460 PO; -MACR100C2 PO; -NAPR500T2 PO; -TYLE325T PO; -VENL150T PO; -ZOFR4TAB3 SL
[2017-05-20 15:39] VITALS: BP 122/70; PULSE 76; RESP 18; TEMP 98.1; O2SAT 99
--- NOTE | 2017-05-20 15:57 | PD ---
HPI Chief Complaint: Flank/Kidney Pain Time Seen by Provider: 15:56 Travel History International Travel<30 days: No Contact w/Intl Traveler<30days: No Traveled to known affect area: No History of Present Illness HPI 41-year-old female came to the emergency room with history of right flank pain that has been going on since yesterday. Patient has history of renal calculus. Patient has also been diagnosed with a UTI by her primary care and has been on ciprofloxacin for past 9 days. This morning she noticed some blood clots in her urine. Patient has history of hypercalcemia and is getting workup for hyperparathyroidism. She does not have a urologist currently. Patient has been nauseous and says that the nausea and vomiting is worse than the pain. Vital signs are stable. She appears to be uncomfortable. Bedside urine test was negative. No history of fever or chills. The pain radiates down to the right lower quadrant. No aggravating or relieving factors identified. PFSH Past Medical History Narrative Medical List of her past medical, surgical, social and family history is reviewed from the nursing note. Hx Anticoagulant Therapy: No Asthma: Yes ( A CHILD) Anxiety: Yes Depression: Yes Cancer: No Cardiovascular Problems: Yes High Cholesterol: Yes Chemotherapy: No Cerebrovascular Accident: No Diabetes: No Diminished Hearing: No Endocrine: Yes (hyperparathyroidism ) Gastrointestinal Disorders: No Genitourinary: Yes (CHRONIC GROIN PAIN ) Hepatitis: No Hiatal Hernia: No Hypertension: No Immune Disorder: No Inguinal Hernia: Yes Kidney Stones: Yes Musculoskeletal: No Neurologic: No Psychiatric: Yes Reproductive: No Respiratory: No Immunizations Current: Yes Thyroid Disease: Yes (HYPO) ?: Not : 3 Para: 3 Ovarian Cysts: Yes Tubal Ligation: Yes Past Surgical History Abdominal Surgery: Yes (BIOPSY ABD RECTUS MUSCLE/BENIGN) AICD: No Section: Yes (X 1) Cholecystectomy: Yes Gynecologic Surgery: Yes (ABLATION) Hysterectomy: Yes Joint Replacement: No Pacemaker: No Tonsillectomy: Yes Other Surgery: Yes (HERNIA REPAIR X2; MASS REMOVED FROM NECK ) Social History Alcohol Use: No Tobacco Use: No Substance Use: No Allergies-Medications (Allergen,Severity, Reaction): Coded Allergies: No Known Allergies (Verified Adverse Reaction, Unknown, 05/21/17) Comments No known drug allergies. Reported Meds & Prescriptions Reported Meds & Active Scripts Active Bactrim DS (Sulfamethoxazole-Trimethoprim) 800-160 Mg Tab 1 Tab PO BID Oxycodone (Oxycodone HCl) 5 Mg Tab 5 Mg PO Q4H PRN Zofran Odt (Ondansetron Odt) 4 Mg Tab 4 Mg SL Q6HR PRN Reported Effexor (Venlafaxine HCl) 37.5 Mg Tab 185 Mg PO HS Levothyroxine (Levothyroxine Sodium) 25 Mcg Tab 25 Mcg PO HS Simvastatin 5 Mg Tab Unknown Dose PO HS Gabapentin 600 Mg Tab 600 Mg PO TID Diazepam 5 Mg Tab 5 Mg PO HS Narrative Medication List of her home medications reviewed from the nursing note. Review of Systems Except as stated in HPI: all other systems reviewed are Neg Gastrointestinal: Positive: Nausea, Vomiting Genitourinary: Positive: Flank Pain Physical Exam Narrative GENERAL: Awake, alert, obese, moderate disc SKIN: Focused skin assessment warm/dry. HEAD: Atraumatic. Normocephalic. EYES: Pupils equal and round. No scleral icterus. No injection or drainage. ENT: No nasal bleeding or discharge. Mucous membranes pink and moist. NECK: Trachea midline. No JVD. CARDIOVASCULAR: Regular rate and rhythm. No murmur appreciated. RESPIRATORY: No accessory muscle use. Clear to auscultation. Breath sounds equal bilaterally. GASTROINTESTINAL: Abdomen soft, non-tender, nondistended. Hepatic and splenic margins not palpable. Right CVA tenderness MUSCULOSKELETAL: No obvious deformities. No clubbing. No cyanosis. No edema. NEUROLOGICAL: Awake and alert. No obvious cranial nerve deficits. Motor grossly within normal limits. Normal speech. PSYCHIATRIC: Appropriate mood and affect; insight and judgment normal. Data Data Last Documented VS Orders Orders Complete Blood Count With Diff (05/20/17 16:26) Basic Metabolic Panel (Bmp) (05/20/17 16:26) Urinalysis - C+S If Indicated (05/20/17 16:26) Ed Urine Pregnancytest Poc (05/20/17 16:26) Ct Abd/Pel W/O Iv Contrast (05/20/17 16:26) Ecg Monitoring (05/20/17 16:26) Iv Access Insert/Monitor (05/20/17 16:26) Morphine Inj (Morphine Inj) (05/20/17 16:30) Ondansetron Inj (Zofran Inj) (05/20/17 16:30) Sodium Chloride 0.9% Flush (Ns Flush) (05/20/17 16:30) Urine Culture (05/20/17 16:42) Blood Culture (05/20/17 17:42) Ceftriaxone Inj (Rocephin Inj) (05/20/17 17:45) Ed Discharge Order (05/20/17 19:28) Morphine Inj (Morphine Inj) (05/20/17 19:45) Labs Laboratory Tests Test 05/20/17 16:42 05/20/17 17:44 White Blood Count 7.2 TH/MM3 Red Blood Count 3.97 MIL/MM3 Hemoglobin 11.5 GM/DL Hematocrit 34.3 % Mean Corpuscular Volume 86.5 FL Mean Corpuscular Hemoglobin 29.1 PG Mean Corpuscular Hemoglobin Concent 33.6 % Red Cell Distribution Width 13.8 % Platelet Count 406 TH/MM3 Mean Platelet Volume 7.3 FL Neutrophils (%) (Auto) 49.7 % Lymphocytes (%) (Auto) 35.8 % Monocytes (%) (Auto) 7.9 % Eosinophils (%) (Auto) 5.6 % Basophils (%) (Auto) 1.0 % Neutrophils # (Auto) 3.6 TH/MM3 Lymphocytes # (Auto) 2.6 TH/MM3 Monocytes # (Auto) 0.6 TH/MM3 Eosinophils # (Auto) 0.4 TH/MM3 Basophils # (Auto) 0.1 TH/MM3 CBC Comment DIFF FINAL Differential Comment Urine Color YELLOW Urine Turbidity HAZY Urine pH 6.5 Urine Specific [place] 1.025 Urine Protein 30 mg/dL Urine Glucose (UA) NEG mg/dL Urine Ketones NEG mg/dL Urine Occult Blood LARGE Urine Nitrite NEG Urine Bilirubin NEG Urine Urobilinogen LESS THAN 2.0 MG/DL Urine Leukocyte Esterase LARGE Urine RBC /hpf Urine WBC 60 /hpf Urine Squamous Epithelial Cells 23 /hpf Urine Bacteria FEW /hpf Urine Hyaline Casts 2 /lpf Urine Mucus FEW /lpf Microscopic Urinalysis Comment CULTURE INDICATED Blood Urea Nitrogen 17 MG/DL Creatinine 1.02 MG/DL Random Glucose 88 MG/DL Calcium Level 9.6 MG/DL Sodium Level 143 MEQ/L Potassium Level 3.9 MEQ/L Chloride Level 108 MEQ/L Carbon Dioxide Level 27.7 MEQ/L Anion Gap 7 MEQ/L Estimat Glomerular Filtration Rate 59 ML/MIN MDM Medical Decision Making Medical Screen Exam Complete: Yes Emergency Medical Condition: Yes Medical Record Reviewed: Yes Differential Diagnosis Renal colic, renal calculi, pyelonephritis Narrative Course 5:15 PM CBC is back and within acceptable limit. Awaiting for the rest of the blood test and UA and a CAT scan to be done and resulted. Patient was given pain medication. 6:39 PM BMP was a re-collect and that is pending. CT scan shows a recent passage of stone. UA is still suggestive of UTI and I have given her a dose of Rocephin. I will discharge her home on Macrobid if the chemistry is within normal limits. 7:25 PM CAT scan shows right ureteral dilatation with no obstruction which as per the radiologist could be from recent passage of the stone. I am comfortable discharging her home and I will change the antibiotic to Macrobid. Urine culture is pending. Procedures EKG Prior to Arrival: No Diagnosis Primary Impression: UTI (urinary tract infection) Qualified Codes: N39.0 - Urinary tract infection, site not specified; R31.9 - Hematuria, unspecified Additional Impressions: Right flank pain Possible recent passage of ureteral stone Referrals: Primary Care Physician 2 days Additional Instructions: Return to the ER if condition worsens or any other new concerns. Please start taking the new medication as per the prescription direction. Stop taking ciprofloxacin. Follow-up with your primary care. Med/Other Pt SpecificInfo: Prescription(s) given, Existing Med Changed ( Stop taking the ciprofloxacin) Scripts Ondansetron Odt (Zofran Odt) 4 Mg Tab 4 MG SL Q6HR Y for Nausea/Vomiting, #10 TAB 0 Refills Prov: Giancarlo Nice MD 05/20/17 Disposition: DISCHARGE HOME Condition: Stable Giancarlo Nice MD May 20, 2017 15:57
[2017-05-20] MEDS ORDERED: CIPR-9 PO (16:13)
[2017-05-20] MEDS ORDERED: SODIUM CHLORIDE 0.9% FLUSH 10 ML FLUSH IVF PRN (16:30)
[2017-05-20] MEDS ORDERED: MORPHINE SULFATE 4 MG/ML INJ IV PUSH ONE ×2 (16:30→19:45)
[2017-05-20] MEDS ORDERED: ONDANSETRON HCL 4 MG/2 ML VIAL IV PUSH ONE (16:30)
[2017-05-20 17:06] LABS: AUTOMATED NEUTROPHIL # 3.6 TH/MM3 (1.8-7.7); BASOPHIL # 0.1 TH/MM3 (0-0.2); EOSINOPHIL # 0.4 TH/MM3 (0-0.4); EOSINOPHIL % 5.6 % (0.0-4.0); HEMATOCRIT 34.3 % (35.0-46.0); HEMOGLOBIN 11.5 GM/DL (11.6-15.3); LYMPH % 35.8 % (9.0-44.0); LYMPHOCYTE # 2.6 TH/MM3 (1.0-4.8); MEAN CELL VOLUME 86.5 FL (80.0-100.0); MEAN CORPUSCULAR HEMOGLOBIN 29.1 PG (27.0-34.0); MEAN CORPUSCULAR HGB CONC 33.6 % (32.0-36.0); MEAN PLATELET VOLUME 7.3 FL (7.0-11.0); MONO % 7.9 % (0.0-8.0); MONOCYTE # 0.6 TH/MM3 (0-0.9); NEUT % 49.7 % (16.0-70.0); PLATELET COUNT 406 TH/MM3 (150-450); RED BLOOD COUNT 3.97 MIL/MM3 (4.00-5.30); RED CELL DISTRIBUTION WIDTH 13.8 % (11.6-17.2); WHITE BLOOD COUNT 7.2 TH/MM3 (4.0-11.0)
[2017-05-20 17:20] LABS: BACTERIA, URINE FEW /hpf; BILIRUBIN, URINE NEG (NEG); BLOOD, URINE LARGE (NEG); GLUCOSE,URINE NEG (NEG); HYALINE CAST, URINE 2 /lpf (RARE); KETONE, URINE NEG (NEG); MUCUS URINE FEW /lpf (OCC); NITRITE,URINE NEG (NEG); PH, URINE 6.5 (5.0-8.5); SQUAMOUS EPITHELIAL CELL URINE 23 /hpf (0-5); URINE COLOR YELLOW (YELLW/STRAW); URINE LEUKOCYTE ESTERASE LARGE (NEG)
[2017-05-20] MEDS ORDERED: cefTRIAXone INJ 1,000 MG in SODIUM CHLORIDE 0.9% INJ 100 ML IV ONE (17:45)
--- NOTE | 2017-05-20 18:30 | RADRPT ---
EXAM DATE/TIME: 05/20/2017 18:11 [facility] COMPARISON: CT THORAX W CONTRAST, January 31, 2017, 1:32. INDICATIONS : Right flank pain with hematuria. ORAL CONTRAST: No oral contrast ingested. RADIATION DOSE: 16.49 CTDIvol (mGy) MEDICAL HISTORY : Cardiovascular disease. Renal calculi. SURGICAL HISTORY : Cholecystectomy. Hysterectomy.Multiple hernia repairs ENCOUNTER: Initial ACUITY: 1 day PAIN SCALE: 8/10 LOCATION: Right flank TECHNIQUE: Volumetric scanning of the abdomen and pelvis was performed. Using automated exposure control and ad justment of the mA and/or kV according to patient size, radiation dose was kept as low as reasonably achievable to obtain optimal diagnostic quality images. DICOM format image data is available electro nically for review and comparison. FINDINGS: The right kidney/ureter: There are mild postobstructive changes and 2 punctate 1 mm stone seen within the collecting system of the right kidney. The proximal right ureter is dilated. I cannot follow the ureter throughout the en tirety of its course with this study would raise suspicion for the possibility of a punctate stone in the distal right ureter or recent stone passage. Left kidney/ureter: The left kidney is normal in size. No stones are seen. The left ureter is normal in caliber. Bladder: No stones are identified within the bladder. CT source data: The limited portion of lung base visualized is clear. The appearance of the liver, spleen, pancreas a nd adrenal glands is within normal limits. There is no retroperitoneal adenopathy. No free intraperit jacobs air or free intraperitoneal fluid is seen. No free fluid is identified within the pelvis. Note is made of a small ventral hernia. There is omental fat herniated into the defect. CONCLUSION: 1. There is mild hydronephrosis and postobstructive change around the right kidney there are 2 puncta te 1 mm stone seen within the collecting system. The proximal ureter is dilated however I cannot foll ow the ureter throughout the entirety of its course. Study would suggest there has either been recent stone passage or the possibility of a punctate stone in the distal right ureter. If patient's sympto ms persist, a dedicated CT urogram or retrograde study would be warranted. 2. Small ventral hernia. 3. Patient is post cholecystectomy. Maurice Escobar MD on May 20, 2017 at 18:23 Board Certified Radiologist. This report was verified electronically.
[2017-05-20 18:39] LABS: BICARBONATE 27.7 MEQ/L (21.0-32.0); CALCIUM 9.6 MG/DL (8.5-10.1); CREATININE 1.02 MG/DL (0.50-1.00)
[2017-05-20] MEDS ORDERED: MACR100C2 PO (19:27)
[2017-05-20] MEDS ORDERED: ZOFR4TAB3 SL (19:33)
== END 2017-05-20 20:19 | disposition home or self-care (01) ==
LOC: NEPC 15:37
DX: N39.0 Urinary tract infection, site not specified (principal); N13.2 Hydronephrosis with renal and ureteral calculous obstruction; K43.9 Ventral hernia without obstruction or gangrene; R11.2 Nausea with vomiting, unspecified; E03.9 Hypothyroidism, unspecified; J45.909 Unspecified asthma, uncomplicated; F41.9 Anxiety disorder, unspecified; E78.00 Pure hypercholesterolemia, unspecified; Z87.442 Personal history of urinary calculi
CPT/HCPCS: 74176; 80048; 81001; 84703; 85025; 87040; 87086; 96365; 96375; J0696; J2270; J2405

== ENCOUNTER 2017-05-21 03:16 | Inpatient (IN) | payer OTHER ==
[~2017-05-21] VITALS: Ht 165.1 cm; Wt 82.0 kg
[2017-05-21] VITALS (7 sets, daily range): BP systolic 103–153; BP diastolic 54–82; PULSE 63–90; RESP 16–18; TEMP 97.5–98; O2SAT 97–100
[~2017-05-21 03:16] MED LIST changes: +CIPR-9 PO; -CYCL10TA PO; +MACR100C2 PO; +ZOFR4TAB3 SL
[2017-05-21] MEDS ORDERED: IOHEXOL 350 MG/ML 10 ML VIAL (for RAD DIAG) IVCONTRAST ONE (03:17)
--- NOTE | 2017-05-21 04:57 | PD ---
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 She was seen here yesterday for similar, her pain was under control she was sent home. She states that her pain is continuing and she has had mild nausea without any significant vomiting. She is also noticed some blood in her urine. She is also noticed that she been passing some small clots. No fevers no cough no congestion. She states she is on antibiotics for possible urinary tract infection. She states the pain is rather severe right flank, colicky, context as above. PFSH Past Medical History Hx Anticoagulant Therapy: No Asthma: Yes ( A CHILD) Anxiety: Yes Depression: Yes Cancer: No Cardiovascular Problems: Yes High Cholesterol: Yes Chemotherapy: No Cerebrovascular Accident: No Diabetes: No Diminished Hearing: No Endocrine: Yes (hyperparathyroidism ) Gastrointestinal Disorders: No Genitourinary: Yes (recent uti on cipro ) Hepatitis: No Hiatal Hernia: No Hypertension: No Immune Disorder: No Inguinal Hernia: Yes Kidney Stones: Yes Musculoskeletal: No Neurologic: No Psychiatric: Yes Reproductive: No Respiratory: No Immunizations Current: Yes Thyroid Disease: Yes (HYPO) Tetanus Vaccination: > 5 Years Influenza Vaccination: Yes ?: Not : 3 Para: 3 Ovarian Cysts: Yes Tubal Ligation: Yes Past Surgical History Abdominal Surgery: Yes (BIOPSY ABD RECTUS MUSCLE/BENIGN) AICD: No Section: Yes (X 1) Cholecystectomy: Yes Gynecologic Surgery: Yes (ABLATION) Hysterectomy: Yes Joint Replacement: No Pacemaker: No Tonsillectomy: Yes Other Surgery: Yes (HERNIA REPAIR X2; MASS REMOVED FROM NECK ) Social History Alcohol Use: No Tobacco Use: No Substance Use: No Allergies-Medications (Allergen,Severity, Reaction): Coded Allergies: No Known Allergies (Verified Adverse Reaction, Unknown, 05/21/17) Reported Meds & Prescriptions Reported Meds & Active Scripts Active Zofran Odt (Ondansetron Odt) 4 Mg Tab 4 Mg SL Q6HR PRN Macrobid (Nitrofurantoin Monoh/Nitrofur Macro) 100 Mg Cap 100 Mg PO BID 10 Days Reported Effexor (Venlafaxine HCl) 37.5 Mg Tab 185 Mg PO HS Tramadol (Tramadol HCl) 50 Mg Tab 10 Mg PO Q4H PRN Levothyroxine (Levothyroxine Sodium) 25 Mcg Tab 25 Mcg PO HS Simvastatin 5 Mg Tab Unknown Dose PO HS Gabapentin 600 Mg Tab 600 Mg PO TID Diazepam 5 Mg Tab 5 Mg PO HS Review of Systems Except as stated in HPI: all other systems reviewed are Neg Physical Exam Narrative GENERAL: Well-developed, well-nourished, appears uncomfortable. SKIN: Focused skin assessment warm/dry. HEAD: Atraumatic. Normocephalic. EYES: Pupils equal and round. No scleral icterus. No injection or drainage. ENT: No nasal bleeding or discharge. Mucous membranes pink and moist. NECK: Trachea midline. No JVD. CARDIOVASCULAR: Regular rate and rhythm. No murmur appreciated. RESPIRATORY: No accessory muscle use. Clear to auscultation. Breath sounds equal bilaterally. GASTROINTESTINAL: Abdomen soft, non-tender, nondistended. Hepatic and splenic margins not palpable. CVA tenderness on the right. Anteriorly the abdomen is benign. MUSCULOSKELETAL: No obvious deformities. No clubbing. No cyanosis. No edema. NEUROLOGICAL: Awake and alert. No obvious cranial nerve deficits. Motor grossly within normal limits. Normal speech. PSYCHIATRIC: Appropriate mood and affect; insight and judgment normal. Data Data Last Documented VS Vital Signs Date Time Temp Pulse Resp B/P (MAP) Pulse Ox O2 Delivery O2 Flow Rate FiO2 05/21/17 08:11 89 18 118/69 (85) 98 Room Air 05/21/17 03:21 97.5 Orders Orders Basic Metabolic Panel (Bmp) (05/21/17 04:51) Complete Blood Count With Diff (05/21/17 04:51) Urinalysis - C+S If Indicated (05/21/17 04:51) Iv Access Insert/Monitor (05/21/17 04:51) Ecg Monitoring (05/21/17 04:51) Oximetry (05/21/17 04:51) Sodium Chloride 0.9% Flush (Ns Flush) (05/21/17 05:00) Ketorolac Inj (Toradol Inj) (05/21/17 05:00) Ondansetron Inj (Zofran Inj) (05/21/17 05:00) Ct Abd/Pel W & W/O Iv Contrast (05/21/17 ) Iohexol 350 Inj (Omnipaque 350 Inj) (05/21/17 03:17) Urine Culture (05/21/17 06:11) Consult Urology (05/21/17 ) Admit Order (Ed Use Only) (05/21/17 ) Labs Laboratory Tests Test 05/21/17 05:37 05/21/17 06:11 White Blood Count 7.3 TH/MM3 Red Blood Count 4.21 MIL/MM3 Hemoglobin 12.1 GM/DL Hematocrit 36.3 % Mean Corpuscular Volume 86.2 FL Mean Corpuscular Hemoglobin 28.9 PG Mean Corpuscular Hemoglobin Concent 33.5 % Red Cell Distribution Width 13.5 % Platelet Count 426 TH/MM3 Mean Platelet Volume 7.3 FL Neutrophils (%) (Auto) 57.1 % Lymphocytes (%) (Auto) 28.5 % Monocytes (%) (Auto) 7.8 % Eosinophils (%) (Auto) 5.4 % Basophils (%) (Auto) 1.2 % Neutrophils # (Auto) 4.1 TH/MM3 Lymphocytes # (Auto) 2.1 TH/MM3 Monocytes # (Auto) 0.6 TH/MM3 Eosinophils # (Auto) 0.4 TH/MM3 Basophils # (Auto) 0.1 TH/MM3 CBC Comment DIFF FINAL Differential Comment Blood Urea Nitrogen 18 MG/DL Creatinine 1.09 MG/DL Random Glucose 107 MG/DL Calcium Level 10.4 MG/DL Sodium Level 143 MEQ/L Potassium Level 4.4 MEQ/L Chloride Level 108 MEQ/L Carbon Dioxide Level 28.0 MEQ/L Anion Gap 7 MEQ/L Estimat Glomerular Filtration Rate 55 ML/MIN Urine Color YELLOW Urine Turbidity CLEAR Urine pH 6.5 Urine Specific [place] 1.017 Urine Protein 30 mg/dL Urine Glucose (UA) NEG mg/dL Urine Ketones NEG mg/dL Urine Occult Blood MOD Urine Nitrite NEG Urine Bilirubin NEG Urine Urobilinogen LESS THAN 2.0 MG/DL Urine Leukocyte Esterase SMALL Urine RBC 177 /hpf Urine WBC 28 /hpf Urine Squamous Epithelial Cells 5 /hpf Microscopic Urinalysis Comment CULTURE INDICATED MDM Medical Decision Making Medical Screen Exam Complete: Yes Emergency Medical Condition: Yes Differential Diagnosis Kidney stone, uropathy, acute kidney injury, urinary tract infection. Narrative Course Patient room to the emergency department, labs from yesterday except for hypercalcemia are fairly within normal limits. The CAT scan from yesterday does not completely visualize the ureter on the right and it was recommended that if the symptoms continue to pursue a CT uroscopy. This was discussed with the patient and she is agreeable. The image today shows that there is mild right-sided hydronephrosis with right- sided hydroureter and a focal area of soft tissue enhancement within the distal right ureter seen on image 65 series 3. There is concern for possible neoplasm and a urologic consult was recommended The results were discussed with the patient and she understands, she does not currently have a urologist with wish to follow-up with so I recommended admission to the hospital so that we could expedite her consultation. This was discussed with Dr. Lopez is will admit. Her pain is better under control but certainly she still feels somewhat uncomfortable. Additional pain medicine was ordered for her peer Diagnosis Primary Impression: Uropathy, obstructive Additional Impression: Ureteral mass Admitting Information Admitting Physician Requests: Admit Condition: Stable Brandan James MD May 21, 2017 04:57
[2017-05-21] MEDS ORDERED: KETOROLAC TROMETHAMINE 30 MG/ML (IVP) VIAL IV PUSH ONE ×2 (05:00→15:00)
[2017-05-21] MEDS ORDERED: SODIUM CHLORIDE 0.9% FLUSH 10 ML FLUSH IV FLUSH PRN ×2 (05:00→09:00)
[2017-05-21] MEDS ORDERED: ONDANSETRON HCL 4 MG/2 ML VIAL IV PUSH ONE (05:00)
[2017-05-21 06:02] LABS: AUTOMATED NEUTROPHIL # 4.1 TH/MM3 (1.8-7.7); BASOPHIL # 0.1 TH/MM3 (0-0.2); BASOPHIL % 1.2 % (0.0-2.0); EOSINOPHIL # 0.4 TH/MM3 (0-0.4); EOSINOPHIL % 5.4 % (0.0-4.0); HEMATOCRIT 36.3 % (35.0-46.0); HEMOGLOBIN 12.1 GM/DL (11.6-15.3); LYMPH % 28.5 % (9.0-44.0); LYMPHOCYTE # 2.1 TH/MM3 (1.0-4.8); MEAN CELL VOLUME 86.2 FL (80.0-100.0); MEAN CORPUSCULAR HEMOGLOBIN 28.9 PG (27.0-34.0); MEAN CORPUSCULAR HGB CONC 33.5 % (32.0-36.0); MEAN PLATELET VOLUME 7.3 FL (7.0-11.0); MONO % 7.8 % (0.0-8.0); MONOCYTE # 0.6 TH/MM3 (0-0.9); NEUT % 57.1 % (16.0-70.0); PLATELET COUNT 426 TH/MM3 (150-450); RED BLOOD COUNT 4.21 MIL/MM3 (4.00-5.30); RED CELL DISTRIBUTION WIDTH 13.5 % (11.6-17.2); WHITE BLOOD COUNT 7.3 TH/MM3 (4.0-11.0)
[2017-05-21 06:20] LABS: CALCIUM 10.4 MG/DL (8.5-10.1); CREATININE 1.09 MG/DL (0.50-1.00)
[2017-05-21 07:04] LABS: BILIRUBIN, URINE NEG (NEG); BLOOD, URINE MOD (NEG); GLUCOSE,URINE NEG (NEG); KETONE, URINE NEG (NEG); NITRITE,URINE NEG (NEG); PH, URINE 6.5 (5.0-8.5); SQUAMOUS EPITHELIAL CELL URINE 5 /hpf (0-5); URINE COLOR YELLOW (YELLW/STRAW); URINE LEUKOCYTE ESTERASE SMALL (NEG)
--- NOTE | 2017-05-21 07:10 | RADRPT ---
EXAM DATE/TIME: 05/21/2017 06:34 [facility] COMPARISON: No previous studies available for comparison. INDICATIONS : Right flank pain with hematuria. IV CONTRAST: 100 cc Omnipaque 350 (iohexol) IV ORAL CONTRAST: No oral contrast ingested. RADIATION DOSE: 16.77 CTDIvol (mGy) MEDICAL HISTORY : Cardiovascular disease. Asthma SURGICAL HISTORY : Cholecystectomy. Hysterectomy.Hernia repair ENCOUNTER: Initial ACUITY: 1 day PAIN SCALE: 7/10 LOCATION: Right flank TECHNIQUE: Volumetric scanning of the abdomen and pelvis was performed. Using automated exposure control and ad justment of the mA and/or kV according to patient size, radiation dose was kept as low as reasonably achievable to obtain optimal diagnostic quality images. DICOM format image data is available electro nically for review and comparison. FINDINGS: LOWER LUNGS: The visualized lower lungs are clear. LIVER: Homogeneous low density without lesion. There is no dilation of the biliary tree. No calcified gall stones. SPLEEN: Normal size without lesion. PANCREAS: Within normal limits. KIDNEYS: There is mild right-sided hydronephrosis and dilation of the right ureter down to the level of the di stal one third of the right ureter where there appears to be soft tissue opacity within the lumen. No stone is identified. Concern is for possible neoplasm. The left kidney is unremarkable.. ADRENAL GLANDS: Within normal limits. VASCULAR: There is no aortic aneurysm. BOWEL/MESENTERY: The stomach, small bowel, and colon demonstrate no acute abnormality. There is no free intraperitone al air or fluid. ABDOMINAL WALL: There is dehiscent of the right rectus muscle just lateral to an incisional scar. RETROPERITONEUM: There is no lymphadenopathy. BLADDER: No wall thickening or mass. REPRODUCTIVE: Surgically absent. INGUINAL: There is no lymphadenopathy or hernia. MUSCULOSKELETAL: Within normal limits for patient age. POST CONTRAST: Abnormal focal soft tissue attenuation identified within the distal right ureter. CONCLUSION: There is mild right-sided hydronephrosis associated with mild right-sided hydroureter with a focal ar ea of soft tissue enhancement within the distal right ureter seen on image 65 of series 3. No stone i s identified within the lumen. Concern is for possible neoplasm. Urologic consultation is recommended . Ioana Dubon MD on May 21, 2017 at 6:54 Board Certified Radiologist. This report was verified electronically.
[2017-05-21] MEDS ORDERED: MORPHINE SULFATE 2 MG/ML INJ IV PUSH ONE (08:45)
[2017-05-21] MEDS ORDERED: MORPHINE SULFATE 2 MG/ML INJ IV PUSH PRN (09:00)
[2017-05-21] MEDS ORDERED: ACETAMINOPHEN 325 MG TAB PO PRN ×2 (09:00)
[2017-05-21] MEDS ORDERED: ONDANSETRON HCL 4 MG/2 ML VIAL IVP PRN (09:00)
[2017-05-21] MEDS: SODIUM CHLOR 0.9% 1000 ML INJ 1,000 ML IV SCH ×2 (10:05→13:08)
[2017-05-21] MEDS: cefTRIAXone INJ 1,000 MG in SODIUM CHLORIDE 0.9% INJ 100 ML IV SCH (10:05)
[2017-05-21] MEDS: DOCUSATE SODIUM 50 MG/SENNA 8.6 MG TAB PO SCH ×2 (10:06→21:00)
[2017-05-21] MEDS: SODIUM CHLORIDE 0.9% FLUSH 10 ML FLUSH IV FLUSH SCH ×2 (10:06→23:37)
[2017-05-21] MEDS: GABAPENTIN 300 MG CAP PO SCH ×3 (10:06→18:30)
--- NOTE | 2017-05-21 12:04 | PD.CONS ---
HPI Service Urology Consult Requested By Reason for Consult Rule out right ureteral mass Primary Care Physician Dino Arreola DO Diagnosis: History of Present Illness 41-year-old female with history hyperparathyroidism and recurrent kidney stone formation who presented to the emergency room with colicky right flank pain. Patient also complained of nausea, vomiting and recent development of hematuria with small clot passage. She also reports being on a antibiotic for possible urinary tract infection. Workup included a CT scan of the abdomen and pelvis that demonstrated mild right-sided hydroureteronephrosis. No definitive stone was seen however the radiologist report indicated a focal area of soft tissue enhancement involving the right distal ureter on one image. Whether or not this is actually a neoplasm or artifact is to be determined. At the time of consultation the patient reported improvement in her pain. 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 Status post hernia repair 2 Status post excision of mass from her neck Reported Medications Refer to EMR Allergies: Coded Allergies: No Known Allergies (Verified Adverse Reaction, Unknown, 05/21/17) Active Ordered Medications Refer to EMR Family History Reviewed and noncontributory Social History Denies tobacco, alcohol or intravenous drug abuse Physical Exam Vital Signs Date Time Temp Pulse Resp B/P (MAP) Pulse Ox O2 Delivery O2 Flow Rate FiO2 05/21/17 11:54 05/21/17 10:30 18 05/21/17 10:15 86 16 98 Room Air 05/21/17 08:11 89 18 118/69 (85) 98 Room Air 05/21/17 04:09 86 18 05/21/17 04:07 90 18 153/82 (105) 98 Room Air 05/21/17 03:21 97.5 73 16 117/54 (75) 100 Physical Exam GENERAL: This is a well-nourished, well-developed patient, in no apparent distress. SKIN: No rashes, ecchymoses or lesions. Cool and dry. HEAD: Atraumatic. Normocephalic. No temporal or scalp tenderness. EYES: Pupils equal round and reactive. Extraocular motions intact. No scleral icterus. No injection or drainage. ENT: Nose without bleeding, purulent drainage or septal hematoma. Throat without erythema, tonsillar hypertrophy or exudate. Uvula midline. Airway patent. NECK: Trachea midline. No JVD or lymphadenopathy. Supple, nontender, no meningeal signs. CARDIOVASCULAR: Regular rate and rhythm without murmurs, gallops, or rubs. RESPIRATORY: Clear to auscultation. Breath sounds equal bilaterally. No wheezes , rales, or rhonchi. GASTROINTESTINAL: Abdomen soft, non-tender, nondistended. No hepato-splenomegaly , or palpable masses. No guarding. GENITOURINARY: MUSCULOSKELETAL: Extremities without clubbing, cyanosis, or edema. No joint tenderness, effusion, or edema noted. No calf tenderness. Negative Homans sign bilaterally. NEUROLOGICAL: Awake and alert. Cranial nerves II through XII intact. Motor and sensory grossly within normal limits. Five out of 5 muscle strength in all muscle groups. Normal speech. Lab results reviewed: Yes Laboratory Tests Test 05/21/17 05:37 05/21/17 06:11 White Blood Count 7.3 Red Blood Count 4.21 Hemoglobin 12.1 Hematocrit 36.3 Mean Corpuscular Volume 86.2 Mean Corpuscular Hemoglobin 28.9 Mean Corpuscular Hemoglobin Concent 33.5 Red Cell Distribution Width 13.5 Platelet Count 426 Mean Platelet Volume 7.3 Neutrophils (%) (Auto) 57.1 Lymphocytes (%) (Auto) 28.5 Monocytes (%) (Auto) 7.8 Eosinophils (%) (Auto) 5.4 Basophils (%) (Auto) 1.2 Neutrophils # (Auto) 4.1 Lymphocytes # (Auto) 2.1 Monocytes # (Auto) 0.6 Eosinophils # (Auto) 0.4 Basophils # (Auto) 0.1 CBC Comment DIFF FINAL Differential Comment Blood Urea Nitrogen 18 Creatinine 1.09 Random Glucose 107 Calcium Level 10.4 Sodium Level 143 Potassium Level 4.4 Chloride Level 108 Carbon Dioxide Level 28.0 Anion Gap 7 Estimat Glomerular Filtration Rate 55 Urine Color YELLOW Urine Turbidity CLEAR Urine pH 6.5 Urine Specific [place] 1.017 Urine Protein 30 Urine Glucose (UA) NEG Urine Ketones NEG Urine Occult Blood MOD Urine Nitrite NEG Urine Bilirubin NEG Urine Urobilinogen LESS THAN 2.0 Urine Leukocyte Esterase SMALL Urine RBC 177 Urine WBC 28 Urine Squamous Epithelial Cells 5 Microscopic Urinalysis Comment CULTURE INDICATED Date/Time Source Procedure Growth Status 05/21/17 06:11 Urine Random Urine Urine Culture Pending Received Result Diagram: 05/21/17 0537 05/21/17 0537 Personally reviewed images: Yes Assessment and Plan Assessment and Plan Urologic impression: 1. Mild right hydroureteronephrosis of indeterminate etiology and may be related to recent stone passage 2. Questionable area of enhancement involving distal third of the right ureter seen on one CT scan image 3. Rule out urinary tract infection Recommendations: 1. Urine for culture and sensitivity 2. Antibiotic therapy for possible UTI 3. Urologic cleared for discharge home when pain managed with oral meds 4. Patient to follow-up with me as an outpatient within the next 2 weeks for reevaluation with CT urogram and possibly ureteroscopic evaluation. Stephon Vásquez MD May 21, 2017 12:04
--- NOTE | 2017-05-21 14:54 | HHI.HP ---
HPI Service [facility] Primary Care Physician Dino Arreola DO Admission Diagnosis Uropathy. Diagnoses: Chief Complaint: Flank pain Travel History International Travel<30 Days: No Contact w/Intl Traveler <30 Da: No Traveled to Known Affected Are: No History of Present Illness The patient is a 41-year-old female with a past medical history of hyperparathyroidism and nephrolithiasis who is presenting to the hospital with significant flank pain. The patient stated that she was on Cipro from her primary care doctor for a UTI. She has been passing small stones in her urine. She has started to notice some blood in the urine as well. Eventually she noticed small blood clots passing in the urine, which continues at this time. She said on Monday the flank pain on the right side of her body became incredibly intense. She was taking tramadol at home but that was not relieving her pain. She has also been experiencing some nausea. She ended up coming to the emergency department and was given a dose of Rocephin and sent home on Macrobid. She has been unable to sleep. Her pain has been poorly controlled. She continues to urinate like clots. She decided to come into the hospital for reevaluation. She says she has a hard time getting follow-up appointments because of her insurance and she is concerned she will have a hard time following up with urology as an outpatient. Discussed with nursing. Review of Systems Except as stated in HPI: all other systems reviewed are Neg Past Family Social History Past Medical History Nephrolithiasis Hypothyroidism Thyroid nodules Uterine fibroids s/p ablation Anxiety/depression Chronic nerve pain Hyperparathyroidism Past Surgical History Rectus abdominis mass status post removal which turned out to be gangrenous, a chocolate cyst and endometriosis section Hernia repair with mesh, then mesh removed Uterine ablation Tubal ligation Tonsillectomy Allergies: Coded Allergies: No Known Allergies (Verified Adverse Reaction, Unknown, 05/21/17) Active Ordered Medications Current Medications Medications (Trade) Dose Ordered Sig/Chang Route Start Time Stop Time Status Last Admin (NS Flush) 2 ml UNSCH PRN IV FLUSH 05/21/17 05:00 (Valium) 5 mg HS PO 05/21/17 21:00 (Neurontin) 600 mg TID PO 05/21/17 09:00 05/21/17 13:02 (Synthroid) 25 mcg HS PO 05/21/17 21:00 Sodium Chloride 1,000 ml @ 100 mls/hr Q10H IV 05/21/17 08:56 05/21/17 13:08 (NS Flush) 2 ml UNSCH PRN IV FLUSH 05/21/17 09:00 (NS Flush) 2 ml BID IV FLUSH 05/21/17 09:00 05/21/17 10:06 (Tylenol) 650 mg Q4H PRN PO 05/21/17 09:00 (Zofran Inj) 4 mg Q6H PRN IVP 05/21/17 09:00 (Tylenol) 650 mg Q6H PRN PO 05/21/17 09:00 (Roxicodone) 10 mg Q4H PRN PO 05/21/17 09:00 (Morphine Inj) 4 mg Q4H PRN IV PUSH 05/21/17 09:00 05/21/17 14:34 (Roxicodone) 5 mg Q4H PRN PO 05/21/17 09:00 (Jing-Colace) 1 tab BID PO 05/21/17 09:00 05/21/17 10:06 Ceftriaxone Sodium 1000 mg/ Sodium Chloride 100 ml @ 200 mls/hr Q24H IV 05/21/17 09:00 05/21/17 10:05 (Effexor Xr) 187.5 mg HS PO 05/22/17 21:00 (Flu (Quadrivalent) Vaccine Inj) 0.5 ml ONCE ONCE IM 05/22/17 10:00 05/22/17 10:01 (Toradol Inj) 30 mg ONCE ONCE IV PUSH 05/21/17 15:00 05/21/17 15:01 Family History Hypertension Atrial fibrillation Social History The patient does not smoke, drink or use illicit substances Physical Exam Vital Signs Vital Signs Date Time Temp Pulse Resp B/P (MAP) Pulse Ox O2 Delivery O2 Flow Rate FiO2 05/21/17 12:50 98.0 67 16 121/66 (84) 97 05/21/17 11:54 05/21/17 10:30 18 05/21/17 10:15 86 16 98 Room Air 05/21/17 08:11 89 18 118/69 (85) 98 Room Air 05/21/17 04:09 86 18 05/21/17 04:07 90 18 153/82 (105) 98 Room Air 05/21/17 03:21 97.5 73 16 117/54 (75) 100 Physical Exam GENERAL: This is a well-nourished, well-developed patient, in no apparent distress. SKIN: No rashes, ecchymoses or lesions. Cool and dry. HEAD: Atraumatic. Normocephalic. No temporal or scalp tenderness. EYES: Pupils equal round and reactive. Extraocular motions intact. No scleral icterus. No injection or drainage. ENT: Nose without bleeding, purulent drainage or septal hematoma. Throat without erythema, tonsillar hypertrophy or exudate. Uvula midline. Airway patent. NECK: Trachea midline. No JVD or lymphadenopathy. Supple, nontender, no meningeal signs. CARDIOVASCULAR: Regular rate and rhythm without murmurs, gallops, or rubs. RESPIRATORY: Clear to auscultation. Breath sounds equal bilaterally. No wheezes , rales, or rhonchi. GASTROINTESTINAL: Abdomen soft, non-tender. Right-sided CVA and flank tenderness. MUSCULOSKELETAL: Extremities without clubbing, cyanosis, or edema. No joint tenderness, effusion, or edema noted. NEUROLOGICAL: Awake and alert. Cranial nerves II through XII intact. Motor and sensory grossly within normal limits. Five out of 5 muscle strength in all muscle groups. Normal speech. Laboratory Laboratory Tests Test 05/21/17 05:37 05/21/17 06:11 White Blood Count 7.3 Red Blood Count 4.21 Hemoglobin 12.1 Hematocrit 36.3 Mean Corpuscular Volume 86.2 Mean Corpuscular Hemoglobin 28.9 Mean Corpuscular Hemoglobin Concent 33.5 Red Cell Distribution Width 13.5 Platelet Count 426 Mean Platelet Volume 7.3 Neutrophils (%) (Auto) 57.1 Lymphocytes (%) (Auto) 28.5 Monocytes (%) (Auto) 7.8 Eosinophils (%) (Auto) 5.4 Basophils (%) (Auto) 1.2 Neutrophils # (Auto) 4.1 Lymphocytes # (Auto) 2.1 Monocytes # (Auto) 0.6 Eosinophils # (Auto) 0.4 Basophils # (Auto) 0.1 CBC Comment DIFF FINAL Differential Comment Blood Urea Nitrogen 18 Creatinine 1.09 Random Glucose 107 Calcium Level 10.4 Sodium Level 143 Potassium Level 4.4 Chloride Level 108 Carbon Dioxide Level 28.0 Anion Gap 7 Estimat Glomerular Filtration Rate 55 Urine Color YELLOW Urine Turbidity CLEAR Urine pH 6.5 Urine Specific [place] 1.017 Urine Protein 30 Urine Glucose (UA) NEG Urine Ketones NEG Urine Occult Blood MOD Urine Nitrite NEG Urine Bilirubin NEG Urine Urobilinogen LESS THAN 2.0 Urine Leukocyte Esterase SMALL Urine RBC 177 Urine WBC 28 Urine Squamous Epithelial Cells 5 Microscopic Urinalysis Comment CULTURE INDICATED Date/Time Source Procedure Growth Status 05/21/17 06:11 Urine Random Urine Urine Culture Pending Received Result Diagram: 05/21/17 0537 05/21/17 0537 Imaging Last Impressions Abdomen/Pelvis CT 05/21/17 0000 Signed Impressions: Service Date/Time: Sunday, May 21, 2017 06:34 - CONCLUSION: There is mild right-sided hydronephrosis associated with mild right-sided hydroureter with a focal area of soft tissue enhancement within the distal right ureter seen on image 65 of series 3. No stone is identified within the lumen. Concern is for possible neoplasm. Urologic consultation is recommended. MD Darron Long VTE Risk Assessment Caprincindy VTE Risk Assessment: Mod/High Risk (score >= 2) Caprini Risk Assessment Model Point Value = 1 Point Value = 2 Point Value = 3 Point Value = 5 Age 41-60 Minor surgery BMI > 25 kg/m2 Swollen legs Varicose veins or History of unexplained or recurrent spontaneous Oral contraceptives or hormone replacement Sepsis (< 1 month) Serious lung disease, including pneumonia (< 1 month) Abnormal pulmonary function Acute myocardial infarction Congestive heart failure (< 1 month) History of inflammatory bowel disease Medical patient at bed rest Age 61-74 Arthroscopic surgery Major open surgery (> 45 min) Laparoscopic surgery (> 45 min) Malignancy Confined to bed (> 72 hours) Immobilizing plaster cast Central venous access Age >= 75 History of VTE Family history of VTE Factor V Leiden Prothrombin [id number] Lupus anticoagulant Anticardiolipin antibodies Elevated serum homocysteine Heparin-induced thrombocytopenia Other congenital or acquired thrombophilia Stroke (< 1 month) Elective arthroplasty Hip, pelvis, or leg fracture Acute spinal cord injury (< 1 month) Prophylaxis Regimen Total Risk Factor Score Risk Level Prophylaxis Regimen 0-1 Low Early ambulation 2 Moderate Order ONE of the following: *Sequential Compression Device (SCD) *Heparin 5000 units SQ BID 3-4 Higher Order ONE of the following medications: *Heparin 5000 units SQ TID *Enoxaparin/Lovenox 40 mg SQ daily (WT < 150 kg, CrCl > 30 mL/min) *Enoxaparin/Lovenox 30 mg SQ daily (WT < 150 kg, CrCl > 10-29 mL/min) *Enoxaparin/Lovenox 30 mg SQ BID (WT < 150 kg, CrCl > 30 mL/min) AND/OR *Sequential Compression Device (SCD) 5 or more Highest Order ONE of the following medications: *Heparin 5000 units SQ TID (Preferred with Epidurals) *Enoxaparin/Lovenox 40 mg SQ daily (WT < 150 kg, CrCl > 30 mL/min) *Enoxaparin/Lovenox 30 mg SQ daily (WT < 150 kg, CrCl > 10-29 mL/min) *Enoxaparin/Lovenox 30 mg SQ BID (WT < 150 kg, CrCl > 30 mL/min) AND *Sequential Compression Device (SCD) Assessment and Plan Assessment and Plan Nephrolithiasis/ UTI/ questionable mass The patient has been having right flank pain, hematuria with blood clots and has been passing small stones. CT of the abdomen showed: There is mild right- sided hydronephrosis associated with mild right-sided hydroureter with a focal area of soft tissue enhancement within the distal right ureter seen on image 65 of series 3; No stone is identified within the lumen; Concern is for possible neoplasm. Neurology consultation appreciated. - Urology recommends outpatient follow-up. The patient fears she will be unable to follow up with her insurance. Case management has been consulted. - Pain control with a bowel regimen. Toradol 30 mg IV 1. - IV fluids. - Antiemetics as needed. - Advance diet as tolerated. - Continue IV ceftriaxone and follow urine culture. Acute renal failure Secondary to above. - IV fluids and avoid nephrotoxic agents. Hyperparathyroidism The patient does have hypercalcemia. - Outpatient follow-up to schedule parathyroidectomy. PPx: SCDs Code Status Full Discussed Condition With Dr. James, pt, nurse Physician Certification 2 Midnight Certification Type: Admission for Inpatient Services Order for Inpatient Services The services are ordered in accordance with Medicare regulations or non- Medicare payer requirements, as applicable. In the case of services not specified as inpatient-only, they are appropriately provided as inpatient services in accordance with the 2-midnight benchmark. Estimated LOS (days): 2 days is the estimated time the patient will need to remain in the hospital, assuming treatment plan goals are met and no additional complications. Post-Hospital Plan: Home Abdulaziz Lopez DO May 21, 2017 14:54
[2017-05-21] MEDS: SODIUM CHLOR 0.45% 1000 ML INJ 1,000 ML IV SCH ×2 (16:46→23:00)
[2017-05-21] MEDS ORDERED: DIAZEPAM 5 MG TAB PO SCH (21:00)
[2017-05-21] MEDS ORDERED: LEVOTHYROXINE SODIUM 25 MCG TAB PO SCH (21:00)
[2017-05-21] MEDS ORDERED: VENLAFAXINE PO SCH (21:00)
[2017-05-22] MEDS: SODIUM CHLOR 0.45% 1000 ML INJ 1,000 ML IV SCH (06:25)
[2017-05-22 08:56] VITALS: BP 122/77; PULSE 63; RESP 16; TEMP 97.6; O2SAT 95
[2017-05-22] MEDS ORDERED: OXYC-392 PO (08:59)
[2017-05-22] MEDS ORDERED: BACT800T5 PO (08:59)
--- NOTE | 2017-05-22 09:00 | HHI.DCPOC ---
Discharge Care Plan Diagnosis: (1) Right flank pain (2) Uropathy, obstructive (3) Ureteral mass (4) UTI (urinary tract infection) (5) Abdominal pain Goals to Promote Your Health * To prevent worsening of your condition and complications * To maintain your health at the optimal level Directions to Meet Your Goals Take your medications as prescribed Follow your dietary instruction Follow activity as directed Keep your appointments as scheduled Take your immunizations and boosters as scheduled If your symptoms worsen call your PCP, if no PCP go to Urgent Care Center or Emergency Room Smoking is Dangerous to Your Health. Avoid second hand smoke Call the 24-hour hour crisis hotline for domestic abuse at Abdulaziz Lopez DO May 22, 2017 09:00
--- NOTE | 2017-05-22 09:04 | HHI.PR ---
Subjective Remarks The pt said everything was better. She wanted to go home. She did have a headache but she gets those chronically ever since an accident she had. She has been ambulating. Discussed with nursing. Objective Vitals Vital Signs Date Time Temp Pulse Resp B/P (MAP) Pulse Ox O2 Delivery O2 Flow Rate FiO2 05/22/17 08:56 97.6 63 16 122/77 (92) 95 05/21/17 20:18 97.9 63 18 103/57 (72) 98 05/21/17 18:10 20 05/21/17 16:13 98.0 75 16 135/74 (94) 98 05/21/17 15:34 20 05/21/17 12:50 98.0 67 16 121/66 (84) 97 05/21/17 11:54 05/21/17 10:30 18 05/21/17 10:15 86 16 98 Room Air I/O 05/21/17 05/21/17 05/21/17 05/22/17 05/22/17 05/22/17 07:00 15:00 23:00 07:00 15:00 23:00 Intake Total 300 ml Balance 300 ml Intake IV Total 300 ml Result Diagram: 05/21/17 0537 05/21/17 0537 Imaging Last Impressions Abdomen/Pelvis CT 05/21/17 0000 Signed Impressions: Service Date/Time: Sunday, May 21, 2017 06:34 - CONCLUSION: There is mild right-sided hydronephrosis associated with mild right-sided hydroureter with a focal area of soft tissue enhancement within the distal right ureter seen on image 65 of series 3. No stone is identified within the lumen. Concern is for possible neoplasm. Urologic consultation is recommended. Ioana Dubon MD Objective Remarks GENERAL: This is a well-nourished, well-developed patient, in no apparent distress. SKIN: No rashes, ecchymoses or lesions. Cool and dry. HEAD: Atraumatic. Normocephalic. No temporal or scalp tenderness. EYES: Pupils equal round and reactive. Extraocular motions intact. No scleral icterus. No injection or drainage. ENT: Nose without bleeding, purulent drainage or septal hematoma. Throat without erythema, tonsillar hypertrophy or exudate. Uvula midline. Airway patent. NECK: Trachea midline. No JVD or lymphadenopathy. Supple, nontender, no meningeal signs. CARDIOVASCULAR: Regular rate and rhythm without murmurs, gallops, or rubs. RESPIRATORY: Clear to auscultation. Breath sounds equal bilaterally. No wheezes , rales, or rhonchi. GASTROINTESTINAL: Abdomen soft, non-tender. Right-sided CVA and flank tenderness. MUSCULOSKELETAL: Extremities without clubbing, cyanosis, or edema. No joint tenderness, effusion, or edema noted. NEUROLOGICAL: Awake and alert. Cranial nerves II through XII intact. Motor and sensory grossly within normal limits. Five out of 5 muscle strength in all muscle groups. Normal speech. Medications and IVs Current Medications Medications (Trade) Dose Ordered Sig/Chang Route Start Time Stop Time Status Last Admin (NS Flush) 2 ml UNSCH PRN IV FLUSH 05/21/17 05:00 (Valium) 5 mg HS PO 05/21/17 21:00 05/21/17 23:37 (Neurontin) 600 mg TID PO 05/21/17 09:00 05/21/17 18:30 (Synthroid) 25 mcg HS PO 05/21/17 21:00 05/21/17 23:37 (NS Flush) 2 ml UNSCH PRN IV FLUSH 05/21/17 09:00 (NS Flush) 2 ml BID IV FLUSH 05/21/17 09:00 05/21/17 23:37 (Tylenol) 650 mg Q4H PRN PO 05/21/17 09:00 (Zofran Inj) 4 mg Q6H PRN IVP 05/21/17 09:00 (Tylenol) 650 mg Q6H PRN PO 05/21/17 09:00 (Roxicodone) 10 mg Q4H PRN PO 05/21/17 09:00 05/21/17 20:14 (Morphine Inj) 4 mg Q4H PRN IV PUSH 05/21/17 09:00 05/21/17 14:34 (Roxicodone) 5 mg Q4H PRN PO 05/21/17 09:00 (Jing-Colace) 1 tab BID PO 05/21/17 09:00 05/21/17 10:06 Ceftriaxone Sodium 1000 mg/ Sodium Chloride 100 ml @ 200 mls/hr Q24H IV 05/21/17 09:00 05/21/17 10:05 (Effexor Xr) 187.5 mg HS PO 05/22/17 21:00 (Flu (Quadrivalent) Vaccine Inj) 0.5 ml ONCE ONCE IM 05/22/17 10:00 05/22/17 10:01 Sodium Chloride 1,000 ml @ 125 mls/hr Q8H IV 05/21/17 15:00 05/21/17 16:46 A/P Assessment and Plan Nephrolithiasis/ UTI/ questionable mass The patient has been having right flank pain, hematuria with blood clots and has been passing small stones. CT of the abdomen showed: There is mild right- sided hydronephrosis associated with mild right-sided hydroureter with a focal area of soft tissue enhancement within the distal right ureter seen on image 65 of series 3; No stone is identified within the lumen; Concern is for possible neoplasm. Neurology consultation appreciated. - Urology recommends outpatient follow-up. The patient fears she will be unable to follow up with her insurance. Case management has been consulted. - Pain control with a bowel regimen. Toradol 30 mg IV 1. Improved. D/c with oxycodone. Ibuprofen as needed. - IV fluids. - Antiemetics as needed. - Advance diet as tolerated. - follow urine culture. D/c on Bactrim D/S. Acute renal failure Secondary to above. - IV fluids and avoid nephrotoxic agents. - BMP pending. Hyperparathyroidism The patient does have hypercalcemia. - Outpatient follow-up to schedule parathyroidectomy. PPx: Abdulaziz Clark DO May 22, 2017 09:04
[2017-05-22] MEDS ORDERED: INFLUENZA VIRUS VACCINE (QUADRIVALENT) 0.5 ML SYR IM ONE (10:00)
[2017-05-22] MEDS: SODIUM CHLORIDE 0.9% FLUSH 10 ML FLUSH IV FLUSH SCH (10:09)
[2017-05-22] MEDS: GABAPENTIN 300 MG CAP PO SCH ×2 (10:09→13:06)
[2017-05-22] MEDS: DOCUSATE SODIUM 50 MG/SENNA 8.6 MG TAB PO SCH (10:09)
[2017-05-22] MEDS: cefTRIAXone INJ 1,000 MG in SODIUM CHLORIDE 0.9% INJ 100 ML IV SCH (10:09)
[2017-05-22 11:02] LABS: ALT (GPT) 24 U/L (10-53); AST (GOT) 15 U/L (15-37); BICARBONATE 25.2 MEQ/L (21.0-32.0); CHLORIDE 108 MEQ/L (98-107); CREATININE 0.83 MG/DL (0.50-1.00); GLOMERULAR FILTRATION RATE 75 ML/MIN (>89); GLUCOSE,RANDOM 94 MG/DL (74-106); SODIUM (NA) 140 MEQ/L (136-145)
[2017-05-22 11:08] LABS: ALKALINE PHOSPHATASE 91 U/L (45-117); BLOOD UREA NITROGEN 12 MG/DL (7-18); TOTAL BILIRUBIN ADULT 0.2 MG/DL (0.2-1.0); TOTAL PROTEIN 6.5 GM/DL (6.4-8.2)
[2017-05-22] MEDS ORDERED: KETOROLAC TROMETHAMINE 30 MG/ML (IVP) VIAL IV PUSH ONE (12:00)
[2017-05-22] MEDS ORDERED: VENLAFAXINE HCL XR 37.5 MG CAP PO SCH (21:00)
== END 2017-05-22 14:34 | disposition home or self-care (01) | DRG 694 ==
LOC: NEPC 03:16 → NEDA 08:13 → NEPGCP 12:01
PROVIDERS: ADMIT Hospitalist; ATTEND Hospitalist
DX: N13.30 Unspecified hydronephrosis (principal); N17.9 Acute kidney failure, unspecified; N39.0 Urinary tract infection, site not specified; E21.3 Hyperparathyroidism, unspecified; E78.00 Pure hypercholesterolemia, unspecified; E03.9 Hypothyroidism, unspecified; R93.41 Abnormal radiologic findings on diagnostic imaging of renal pelvis, ureter, or bladder; F32.9 Major depressive disorder, single episode, unspecified; F41.9 Anxiety disorder, unspecified; Z23 Encounter for immunization; Z87.442 Personal history of urinary calculi
CPT/HCPCS: 74176; 74178; 80048; 80053; 81001; 84703; 85025; 87040; 87086; 90686; 96365; 96374; 96375; J0696; J1885; J2270; J2405; J7030; Q2038; Q9967

== ENCOUNTER 2017-05-29 18:21 | Emergency (ER) | payer OTHER ==
[~2017-05-29] VITALS: Ht 165.1 cm; Wt 102.7 kg
[~2017-05-29 18:21] MED LIST changes: +BACT800T5 PO; -CIPR-9 PO; -MACR100C2 PO; +OXYC-392 PO; -TRAM50TA PO
[2017-05-29 18:24] VITALS: BP 120/77; PULSE 73; RESP 24; TEMP 97.8; O2SAT 98
--- NOTE | 2017-05-29 20:39 | PD ---
HPI Chief Complaint: Flank/Kidney Pain Time Seen by Provider: 20:24 Travel History International Travel<30 days: No Contact w/Intl Traveler<30days: No Traveled to known affect area: No History of Present Illness HPI 41-year-old white female returns to the ER after being discharged little over 1 week ago for evaluation of neuropathy. She was seen by Dr. Vásquez and she was discharged home. She has an outpatient appointment with him on 14 June. She had a CT performed that showed a possible ureteral mass. She has some mild hydronephrosis. Patient was discharged home on Percocet and Bactrim. She has finished her antibiotics. She states now in the last day the pain is intensified. She states the pain actually has never gone away but is become much more severe today. She has had associated nausea. No vomiting. She states that the Percocet is not helping. She has noted a large amount of blood in her urine. No fevers. No chest pain or shortness of breath. She denies any abdominal pain but states that she has lower pelvic pressure. Positive bilateral mid and lower back pain into the flanks. Symptoms are exacerbated by palpation of the back. She states her pain is colicky in nature. Moderate to severe in intensity. PFSH Past Medical History Hx Anticoagulant Therapy: No Asthma: Yes ( A CHILD) Anxiety: Yes Depression: Yes Cancer: No Cardiovascular Problems: Yes High Cholesterol: Yes Chemotherapy: No Cerebrovascular Accident: No Diabetes: No Diminished Hearing: No Endocrine: Yes (hyperparathyroidism ) Gastrointestinal Disorders: No Genitourinary: Yes (recent uti on cipro ) Hepatitis: No Hiatal Hernia: No Hypertension: No Immune Disorder: No Inguinal Hernia: Yes Kidney Stones: Yes Musculoskeletal: No Neurologic: No Psychiatric: Yes Reproductive: No Respiratory: No Immunizations Current: Yes Thyroid Disease: Yes (HYPO) : 3 Para: 3 Ovarian Cysts: Yes Tubal Ligation: Yes Past Surgical History Abdominal Surgery: Yes (BIOPSY ABD RECTUS MUSCLE/BENIGN) AICD: No Section: Yes (X 1) Cholecystectomy: Yes Gynecologic Surgery: Yes (ABLATION) Hysterectomy: Yes Joint Replacement: No Pacemaker: No Tonsillectomy: Yes Other Surgery: Yes (HERNIA REPAIR X2; MASS REMOVED FROM NECK ) Social History Alcohol Use: No Tobacco Use: No Substance Use: No Allergies-Medications (Allergen,Severity, Reaction): Coded Allergies: No Known Allergies (Verified Adverse Reaction, Unknown, 3/18/18) Reported Meds & Prescriptions Reported Meds & Active Scripts Active Bactrim DS (Sulfamethoxazole-Trimethoprim) 800-160 Mg Tab 1 Tab PO BID Oxycodone (Oxycodone HCl) 5 Mg Tab 5 Mg PO Q4H PRN Zofran Odt (Ondansetron Odt) 4 Mg Tab 4 Mg SL Q6HR PRN Reported Effexor (Venlafaxine HCl) 37.5 Mg Tab 185 Mg PO HS Levothyroxine (Levothyroxine Sodium) 25 Mcg Tab 25 Mcg PO HS Simvastatin 5 Mg Tab Unknown Dose PO HS Gabapentin 600 Mg Tab 600 Mg PO TID Diazepam 5 Mg Tab 5 Mg PO HS Review of Systems Except as stated in HPI: all other systems reviewed are Neg Physical Exam Narrative GENERAL: Well-developed, well-nourished in no acute distress. Nontoxic appearing. HEAD: Normocephalic, atraumatic. EYES: Pupils equal round and reactive. Extraocular motions intact. No scleral icterus. No injection or drainage. ENT: TMs clear without erythema. The external auditory canals clear. Nose: clear . Posterior pharynx is pink and moist. No tonsillar edema or exudate. Uvula midline. Airway patent. NECK: Trachea midline.Supple, nontender, moves head freely. No central bony tenderness or spasm. CARDIOVASCULAR: Regular rate and rhythm without murmurs, gallops, or rubs. RESPIRATORY: Clear to auscultation. Breath sounds equal bilaterally. No wheezes , rales, or rhonchi. GASTROINTESTINAL: Abdomen soft, obese, mild suprapubic tenderness, nondistended. No hepato-splenomegaly, or palpable masses. No guarding. EXTREMITIES: No clubbing, cyanosis, or edema. No joint tenderness, effusion, or edema noted. BACK: Patient complains of pain on palpation of the lower thoracic upper lumbar region bilaterally. The right greater than left. Obese, without deformity or crepitance. No flank tenderness. Data Data Last Documented VS Vital Signs Date Time Temp Pulse Resp B/P (MAP) Pulse Ox O2 Delivery O2 Flow Rate FiO2 05/29/17 18:24 97.8 73 24 120/77 (91) 98 Orders Orders Urinalysis - C+S If Indicated (05/29/17 19:42) Complete Blood Count With Diff (05/29/17 19:42) Basic Metabolic Panel (Bmp) (05/29/17 19:42) Iv Access Insert/Monitor (05/29/17 20:32) Sodium Chlor 0.9% 1000 Ml Inj (Ns 1000 M (05/29/17 20:45) Ketorolac Inj (Toradol Inj) (05/29/17 20:45) MDM Medical Decision Making Medical Screen Exam Complete: Yes Emergency Medical Condition: Yes Medical Record Reviewed: Yes Differential Diagnosis Differential diagnosis: Kidney stone, obstructive uropathy, ureteral mass, myofascial pain, UTI, pyelonephritis Narrative Course IV access is obtained. Routine laboratory tests including CBC, chemistry, UA sent. Patient was given a liter bolus of normal saline, 4 mg of Zofran, and Toradol 30 mg IV. Condition: Stable Nilson Gil May 29, 2017 20:39
[2017-05-29] MEDS ORDERED: KETOROLAC TROMETHAMINE 30 MG/ML (IVP) VIAL IV PUSH ONE (20:45)
[2017-05-29] MEDS ORDERED: SODIUM CHLOR 0.9% 1000 ML INJ 1,000 ML IV ONE (20:45)
[2017-05-29] MEDS ORDERED: ONDANSETRON HCL 4 MG/2 ML VIAL IV PUSH ONE (21:30)
[2017-05-29 21:45] LABS: AUTOMATED NEUTROPHIL # 6.1 TH/MM3 (1.8-7.7); BASOPHIL # 0.1 TH/MM3 (0-0.2); EOSINOPHIL # 0.2 TH/MM3 (0-0.4); EOSINOPHIL % 2.5 % (0.0-4.0); HEMOGLOBIN 13.4 GM/DL (11.6-15.3); LYMPH % 25.1 % (9.0-44.0); LYMPHOCYTE # 2.4 TH/MM3 (1.0-4.8); MEAN CELL VOLUME 85.5 FL (80.0-100.0); MEAN CORPUSCULAR HEMOGLOBIN 28.8 PG (27.0-34.0); MEAN CORPUSCULAR HGB CONC 33.6 % (32.0-36.0); MEAN PLATELET VOLUME 8.3 FL (7.0-11.0); MONO % 6.5 % (0.0-8.0); MONOCYTE # 0.6 TH/MM3 (0-0.9); NEUT % 64.9 % (16.0-70.0); PLATELET COUNT 423 TH/MM3 (150-450); RED BLOOD COUNT 4.68 MIL/MM3 (4.00-5.30); RED CELL DISTRIBUTION WIDTH 13.8 % (11.6-17.2); WHITE BLOOD COUNT 9.4 TH/MM3 (4.0-11.0)
[2017-05-29 22:00] LABS: AMORPHOUS SEDIMENT, URINE RARE; BACTERIA, URINE FEW /hpf; BILIRUBIN, URINE NEG (NEG); BLOOD, URINE MOD (NEG); GLUCOSE,URINE NEG (NEG); KETONE, URINE NEG (NEG); MUCUS URINE MOD /lpf (OCC); NITRITE,URINE NEG (NEG); SQUAMOUS EPITHELIAL CELL URINE 19 /hpf (0-5); URINE COLOR YELLOW (YELLW/STRAW); URINE LEUKOCYTE ESTERASE LARGE (NEG)
[2017-05-29 22:13] LABS: BICARBONATE 28.5 MEQ/L (21.0-32.0); CALCIUM 10.4 MG/DL (8.5-10.1); CREATININE 1.04 MG/DL (0.50-1.00)
[2017-05-29] MEDS ORDERED: cefTRIAXone INJ 1,000 MG in SODIUM CHLORIDE 0.9% INJ 100 ML IV ONE (22:30)
[2017-05-29 22:37] VITALS: BP 148/86; PULSE 70; RESP 18; O2SAT 100
[2017-05-29] MEDS ORDERED: CEPH-460 PO (23:22)
[2017-05-29] MEDS ORDERED: ZOFR4TAB3 SL (23:22)
[2017-05-29 23:31] VITALS: RESP 20
== END 2017-05-29 23:54 | disposition home or self-care (01) ==
LOC: NED 18:21 → NEPD 23:54
DX: N39.0 Urinary tract infection, site not specified (principal); E03.9 Hypothyroidism, unspecified; E78.00 Pure hypercholesterolemia, unspecified; F32.9 Major depressive disorder, single episode, unspecified
CPT/HCPCS: 80048; 81001; 85025; 87086; 96365; 96375; 99284; J0696; J1885; J2405; J3010; J7030

== ENCOUNTER → 2017-07-10 | Day surgery (SDC) | payer OTHER ==
[~2017-07-10] VITALS: Ht 149.9 cm; Wt 104.9 kg
[~2017-07-10] MED LIST changes: +*MEPERIDINE 25 MG INJ VIAL PERIprocedural Use ONLY ONE; +*morphine SULFATE 4 MG/ML PERIprocedure ONLY ONE; -BACT800T5 PO; +CEPH-459 PO; +CHLORHEXIDINE GLUCONATE 2 % 1 PACK (2 CLOTHS) TOPICAL PRN; +DEXAMETHASONE SOD PHOS 4 MG/ML VIAL IV ONE; +DICL50TA PO; +DO NOT ADM ANY ANTICOAGULANT DRUGS PRN; +FAMOTIDINE 20 MG/2 ML VIAL ONE; +INSULIN HUMAN REGULAR 1,000 UNITS/10 ML VIAL SQ PRN; +LACTATED RINGER'S 1000 ML INJ 1,000 ML IV ONE; +LACTATED RINGER'S 1000 ML IV PRN; +LIDOCAINE HCL 1% PF 5 ML SYRINGE OTHER ONE; +METOPROLOL TARTRATE 25 MG TAB PO PRN; +MIDAZOLAM HCL 2 MG/2 ML VIAL ONE; +ONDANSETRON HCL 4 MG/2 ML VIAL IV ONE; +ONDANSETRON HCL 4 MG/2 ML VIAL IV PUSH PRN; -OXYC-392 PO; +PERC5TAB12 PO; +POVIDONE IODINE 5% (ANTISEPSIS KIT) 4 APPLICATIONS EACH NARE PRN; +PROPOFOL 200 MG/20 ML AMP IV ONE; -SIMV5TAB3 PO; +SODIUM CHLORID 0.9% 500 ML IV PRN; +SUMA25TA2 PO; +TRAM50TA PO; +VENL150C39 PO; -VENL37.5 PO; +VENL37.595 PO; -ZOFR4TAB3 SL; +ceFAZolin 1,000 MG/NS 100 ML IV SCH; +oxyCODONE/ACETAMINOPHEN 5 MG/325 MG TAB PO PRN
[2017-07-10 07:10] LABS: AUTOMATED NEUTROPHIL # 4.6 TH/MM3 (1.8-7.7); BASOPHIL # 0.1 TH/MM3 (0-0.2); BASOPHIL % 1.3 % (0.0-2.0); EOSINOPHIL # 0.3 TH/MM3 (0-0.4); EOSINOPHIL % 3.9 % (0.0-4.0); HEMATOCRIT 38.7 % (35.0-46.0); HEMOGLOBIN 13.4 GM/DL (11.6-15.3); LYMPH % 29.1 % (9.0-44.0); LYMPHOCYTE # 2.2 TH/MM3 (1.0-4.8); MEAN CELL VOLUME 84.3 FL (80.0-100.0); MEAN CORPUSCULAR HEMOGLOBIN 29.1 PG (27.0-34.0); MEAN CORPUSCULAR HGB CONC 34.6 % (32.0-36.0); MONO % 6.6 % (0.0-8.0); MONOCYTE # 0.5 TH/MM3 (0-0.9); NEUT % 59.1 % (16.0-70.0); PLATELET COUNT 340 TH/MM3 (150-450); RED BLOOD COUNT 4.59 MIL/MM3 (4.00-5.30); RED CELL DISTRIBUTION WIDTH 14.1 % (11.6-17.2); WHITE BLOOD COUNT 7.7 TH/MM3 (4.0-11.0)
--- NOTE | 2017-07-10 09:18 | PD.OP ---
Operative Report Date of Surgery: July 10, 2017 Preoperative Diagnosis: (1) Hydronephrosis, right Postoperative Diagnosis: (1) Hydronephrosis, right Procedure: Cystoscopy, right retrograde pyelogram, right ureteroscopy and insertion of right ureteral catheter Anesthesia: General Surgeon: Stephon Vásquez Reel Repairer(s): None Operation and Findings: Indication for procedures: Case of a pleasant 41-year-old female who was recently hospitalized for right flank pain and had a CT scan that demonstrated right hydronephrosis and was suspicious for a possible distal right ureteral mass. Patient presents today for further evaluation to include right ureteroscopy. Operative procedures in detail: Patient was brought to the operating room suite and placed supine. She was then placed under general anesthesia. She was then repositioned in the dorsolithotomy position and prepped and draped in normal sterile fashion. After appropriate timeout was undertaken I proceeded with cystoscopic evaluation utilizing the rigid cystoscope with both the 30 and 70 lenses. The 20 [place]uv[place] sheath was utilized. Both right and left ureteral orifices were correct anatomic position draining clear yellow urine. There were no bladder mucosal lesions, calculi or diverticula formation. I then proceeded in performing a right retrograde pyelogram study utilizing a 6 [place]uv[place] open-ended ureteral catheter. There was prompt filling and drainage of the collecting system noted. I then advanced a sensor 0.035 wire up the patient's right ureter all the way into the right renal pelvis. The cystoscope was removed and the wire secured to a sterile drape with hemostat. The self dilating ureteroscope was then utilized and ureteroscopy was performed. The instrument was advanced approximately two thirds up the right ureter and there were no abnormalities noted. There are no areas suspicious for tumor formation nor were there any calculi. The ureteroscope was gently withdrawn and after removal of the scope there was a small amount of oozing of blood noted at the right ureteral orifice likely from instrumentation. A decision was thus made to advance a 6 [place]uvian open-ended ureteral catheter up the ureter approximately 25 cm in a cephalad direction. The cystoscope was removed and a 16 Peruvian 10 cc Fairchild catheter was placed and the ureteral catheter was anchored to the Fairchild via a connector. It is anticipated that both the Fairchild and ureteral catheter will be removed in approximately 1 hour. The patient tolerated the procedures without complications and was transferred to the PACU in satisfactory condition. Stephon Vásquez MD July 10, 2017 09:18
[2017-07-10 11:00] VITALS: BP 131/92; PULSE 78; RESP 16; TEMP 97.8; O2SAT 96
== END | disposition home or self-care (01) ==
LOC: HSDC 05:52
PROVIDERS: ATTEND Urology
DX: N13.30 Unspecified hydronephrosis (principal); E78.5 Hyperlipidemia, unspecified
CPT/HCPCS: 00910; 52351; 74420; 85025; C1769; J0690; J1100; J2175; J2250; J2270; J2405; J3010; J7120